=== PATIENT | male | born 1940 | race Caucasian/White ===

== ENCOUNTER → 2016-10-23 | Outpatient (CLI) | payer MEDICARE, BC ==
[2016-10-23 09:06] LABS: Basophils % (A) 0 %; CH 25.9; CHCM 30.6; Eosinophils # (A) 0.3 k/uL (0-0.7); Eosinophils % (A) 3 %; HDW 2.68; HGB 12.3 gm/dL (13.0-17.5); Hypochromasia Moderate; Luc # (Auto) 0.26; Luc % (Auto) 3; Lymphocytes # (A) 1.7 k/uL (1.0-4.8); Lymphocytes % (A) 17 %; MCH 26.8 pg (25.0-35.0); MCHC 31.5 g/dL (31.0-37.0); MCV 85.1 fL (80.0-100.0); Monocytes # (A) 0.8 k/uL (0-1.0); Monocytes % (A) 8 %; Neutrophils % (A) 69 %; RBC 4.58 m/uL (4.30-5.90); RDW 15.2 % (11.5-15.5); WBC 10.1 k/uL (3.8-10.6); WBC (Perox) 10.44
[2016-10-23 12:34] LABS: ALT 35 U/L (21-72); AST 19 U/L (17-59); Alkaline Phosphatase 68 U/L (38-126); Anion Gap 9 mmol/L; Blood Urea Nitrogen 19 mg/dL (9-20); Calcium 9.6 mg/dL (8.4-10.2); Carbon Dioxide 28 mmol/L (22-30); Chloride 104 mmol/L (98-107); Cholesterol 133 mg/dL (<200); Glucose 102 mg/dL (74-99); HDL Cholesterol 42 mg/dL (40-60); Non-African American GFR(MDRD) >60 (>60 ml/min/1.73 sqM); Potassium 4.9 mmol/L (3.5-5.1); Sodium 141 mmol/L (137-145); Total Bilirubin 0.6 mg/dL (0.2-1.3); Total Protein 7.6 g/dL (6.3-8.2)
== END | disposition home or self-care (01) ==
LOC: LABWHC1 08:30
PROVIDERS: ATTEND Internal Medicine Pulmonary Disease
DX: E78.5 Hyperlipidemia, unspecified (principal); I11.0 Hypertensive heart disease with heart failure; I50.9 Heart failure, unspecified; Z12.5 Encounter for screening for malignant neoplasm of prostate
CPT/HCPCS: 80061; 80053; 85025; 36415; G0103

== ENCOUNTER → 2017-05-27 | Outpatient (CLI) | payer MEDICARE, BC ==
[2017-05-27 08:22] LABS: Basophils % (A) 1 %; Eosinophils # (A) 0.2 k/uL (0-0.7); Eosinophils % (A) 3 %; HCT 43.1 % (39.0-53.0); HGB 13.2 gm/dL (13.0-17.5); Hypochromasia Moderate; Lymphocytes # (A) 1.7 k/uL (1.0-4.8); Lymphocytes % (A) 25 %; MCH 25.7 pg (25.0-35.0); MCHC 30.7 g/dL (31.0-37.0); MCV 83.8 fL (80.0-100.0); Mean Platelet Volume 6.8; Monocytes # (A) 0.6 k/uL (0-1.0); Monocytes % (A) 9 %; Neutrophils % (A) 59 %; Platelet Count 297 k/uL (150-450); RBC 5.14 m/uL (4.30-5.90); RDW 14.8 % (11.5-15.5); WBC 6.7 k/uL (3.8-10.6)
[2017-05-27 08:38] LABS: Albumin 4.4 g/dL (3.5-5.0); Calcium 10.3 mg/dL (8.4-10.2); Potassium 4.8 mmol/L (3.5-5.1); Total Bilirubin 0.4 mg/dL (0.2-1.3); Total Protein 7.7 g/dL (6.3-8.2)
[2017-05-27 08:52] LABS: T4, Free (Free Thyroxine) 1.17 ng/dL (0.78-2.19)
== END | disposition home or self-care (01) ==
LOC: LABWHC1 07:50
PROVIDERS: ATTEND Internal Medicine Pulmonary Disease
DX: E78.00 Pure hypercholesterolemia, unspecified (principal); I10 Essential (primary) hypertension; E03.9 Hypothyroidism, unspecified
CPT/HCPCS: 36415; 80053; 80061; 84439; 84443; 85025

== ENCOUNTER → 2017-06-10 | Outpatient (CLI) | payer MEDICARE, BC ==
--- NOTE | 2017-06-10 18:25 | MR ---
MR brain without contrast HISTORY: Vertigo with bilateral hearing loss Multiplanar multisequence imaging through the brain No comparisons There is no restricted diffusion. No hemorrhage or hydrocephalus. There is a partially empty sella. C orpus callosum, cervical medullary junction, cerebellopontine angles are unremarkable. Inflammatory c hanges present within the mastoid air cells right greater than left, the mucoperiosteal thickening pr esent within the maxillary sinuses, ethmoid air cells, frontal sinus. The orbits show symmetric appea alecia. Cortical atrophy is likely age-related. Confluent and scattered hyperintensities are present in the deep white matter, periventricular white matter, subcortical white matter on inversion recovery and T2-weighted sequences. There is a focus of juxtacortical hyperintensity in the left parietal region possibly due to some local encephalomalacia , gliosis seen on axial images 23 and 24 of the inversion recovery dataset. There are expected vascul ar flow voids. IMPRESSION: Correlate for mastoiditis, temporal bone CT may be of benefit. No evident cerebellopontin e angle mass. Sinus disease. White matter demyelination with focus of possible gliosis and encephalom alacia as described. Consider follow-up, contrast-enhanced exam.
== END | disposition home or self-care (01) ==
LOC: RADMRIMAIN 16:46
PROVIDERS: ATTEND Psychiatry & Neurology Neurology
DX: R90.89 Other abnormal findings on diagnostic imaging of central nervous system (principal); R42 Dizziness and giddiness
CPT/HCPCS: 70551

== ENCOUNTER → 2017-06-18 | Outpatient (CLI) | payer MEDICARE, BC ==
--- NOTE | 2017-06-18 14:39 | MR ---
EXAMINATION TYPE: MR brain w con DATE OF EXAM: 06/18/2017 COMPARISON: Prior MRI brain June 10, 2017. HISTORY: Prior abnormal MRI, vertigo. TECHNIQUE: Multiplanar, multisequence images of the brain and brainstem is performed with IV contrast only, util izing 7.5 mL intravenous Gadavist . FINDINGS: There is no suspicious enhancement left parietal region at area of clinical concern on prio r study. There is focal encephalomalacia with low intensity and sulcal atrophy noted. Postcontrast im ages show no suspicious enhancing intraparenchymal mass. The dural venous sinuses appear patent. IMPRESSION: No suspicious enhancing mass identified.
== END | disposition home or self-care (01) ==
LOC: RADMRIMAIN 13:50
PROVIDERS: ATTEND Psychiatry & Neurology Neurology
DX: R42 Dizziness and giddiness (principal); R90.89 Other abnormal findings on diagnostic imaging of central nervous system
CPT/HCPCS: 70552; A9581

== ENCOUNTER → 2017-09-05 | Outpatient (CLI) | payer MEDICARE, BC ==
[2017-09-05 10:48] LABS: Albumin 4.1 g/dL (3.5-5.0); Calcium 9.7 mg/dL (8.4-10.2); Potassium 4.7 mmol/L (3.5-5.1); Total Bilirubin 0.4 mg/dL (0.2-1.3)
[2017-09-05 11:05] LABS: T4, Free (Free Thyroxine) 1.16 ng/dL (0.78-2.19)
[2017-09-05 11:15] LABS: PSA Annual Screen 1.48 ng/mL (0.00-4.00)
[2017-09-05 17:08] LABS: Hemoglobin A1C 6.7 % (4.0-6.0)
== END | disposition home or self-care (01) ==
LOC: LABWHC1 08:01
PROVIDERS: ATTEND Internal Medicine Pulmonary Disease
DX: E10.21 Type 1 diabetes mellitus with diabetic nephropathy (principal); E78.5 Hyperlipidemia, unspecified; I95.9 Hypotension, unspecified
CPT/HCPCS: 84439; 80061; 80053; 84443; 83036; 36415; G0103

== ENCOUNTER 2021-08-01 07:11 | Day surgery (SDC) | payer MEDICARE, BC ==
[2021-07-31 11:11] VITALS: BMI 25.0
[~2021-08-01 07:11] MED LIST: LACTATED RINGERS 1,000 ML IV SCH; LIDOCAINE 1% (10MG/ML) FOR IV START INTRADERMA PRN; TETRACAINE 0.5% OPHTH (PF) DROPS 4 ML BTL OP PRN
[2021-08-01 07:43] VITALS: RESP 16; TEMP 97.6
[2021-08-01] MEDS: PHENYLEPHRINE 2.5% OPHTH DRP 2ML OP PRN ×3 (07:47→07:59)
[2021-08-01] MEDS: CYCLOPENTOLATE 1% OPHTH SOLN 2 ML BTL OP PRN ×3 (07:50→08:02)
[2021-08-01 08:03] LABS: Glucose,Whole Blood 134 mg/dL (70-110)
[2021-08-01] MEDS ORDERED: MIDAZOLAM 2 MG/2 ML VIAL ONE (08:58)
[2021-08-01] MEDS ORDERED: fentaNYL (PF) 50 MCG/ML 2 ML AMP ONE (08:58)
[2021-08-01] MEDS ORDERED: HYALURONATE SODIUM INTRAOCULAR 1 EACH SYRINGE (12MG/ML) INTRAOCULA ONE (09:25)
[2021-08-01] MEDS ORDERED: BALANCED SALT IRRIG SOLN COMB2 15 ML IRRIG.SOLN IRRIGATION ONE (09:26)
[2021-08-01] MEDS ORDERED: EPINEPHrine (PF) 0.3 ML in BALANCED SALT IRRIG SOLN COMB2 500 ML IRRIGATION ONE (09:27)
[2021-08-01] MEDS: TIMOLOL 0.5% OPHTH DROPS 5 ML BTL OP PRN ×2 (09:27→09:42)
[2021-08-01] MEDS: MOXIFLOXACIN HCL 0.5% DROPS 3 ML BTL OP PRN ×2 (09:27→09:42)
[2021-08-01] MEDS ORDERED: LIDOCAINE 1% (PF) 10MG/ML VIAL MISCELLANE ONE (09:27)
--- NOTE | 2021-08-01 09:44 | P.OP ---
Date of Procedure: 08/01/21 Preoperative Diagnosis: NS & CS Postoperative Diagnosis: same Procedure(s) Performed: PIOL, OD Implants: [id number] 21.50 Anesthesia: MAC Surgeon: Yobani Vega Pathology: none sent Condition: stable Disposition: same day Indications for Procedure: blurry vision Operative Findings: no complications
[2021-08-01 10:11] VITALS: BP 153/72; PULSE 75
--- NOTE | 2021-08-01 22:25 | OP ---
OPERATIVE REPORT DATE OF SERVICE: 08/01/2021. PROCEDURES: Phacoemulsification of cataract and intraocular lens implant of the right eye. PREOPERATIVE DIAGNOSES: Nuclear sclerosis, cortical sclerosis and regular astigmatism. POSTOPERATIVE DIAGNOSES: Nuclear sclerosis, cortical sclerosis and regular astigmatism. SURGEON: Dr. Yobani Vega. ANESTHESIA: Topical. ESTIMATED BLOOD LOSS: None. SPECIMEN TAKEN: None. NARRATIVE: After obtaining the appropriate consent, the patient was brought to the operating room,there he was asked to sit upright and the axes of 0 and 180 degrees were identified and marked with a gentian jeff marker. He was then placed in the proper supine position under cardiac monitoring and prepped and draped in the usual sterile manner. He was approached from his right temporal side using previously acquired corneal topography information and a Cionni axis marker previously inked in gentian jeff was oriented at the 8 degree axis. This was placed against the patient's corneal limbus. At the 11 o'clock position an MVR blade was used to create a paracentesis port. Through this opening 1% Xylocaine MPF 50:50 mix with balanced salt solution was injected into the anterior chamber. This was followed by stabilization of the anterior chamber with Amvisc. At the 9 o'clock position, a 2.5 mm keratome was used to create a self-sealing corneal flap incision. Through this opening, a cystotome was introduced to begin a continuous tear capsulorrhexis which was then completed using the Utrata forceps. Hydrodissection and hydrodelineation of the lens were accomplished with balanced salt solution. Phacoemulsification of the lens utilizing phaco chop was accomplished in 13.59 seconds at 18% power. Additional Xylocaine MPF was instilled into the anterior chamber. This was followed by removal of the remaining cortical material under irrigation and aspiration as well as careful polishing of the posterior capsule in capsule vacuum mode. Additional Amvisc was then used to stabilize the capsular bag and a Bausch and Lomb MX 60 ET 21.5 diopter by 2 diopter cylinder intra- ocular lens was introduced into the capsular bag without difficulty. The remaining viscoelastic was removed from in and around the intraocular lens as well as the anterior chamber. The lens was then oriented at the 8 degree axis as was indicated on the patient's corneal limbus. The eye was then brought to normal intraocular pressure through the paracentesis port while confirming watertight integrity of the incisions. He then received 2 drops of 0.5% timolol followed by 2 drops of 0.5% moxifloxacin was then lightly patched and shielded in the usual manner. There were no complications from the procedure. He tolerated the procedure well and was returned to outpatient recovery in good condition. LUCY / CHERRY: [id number] /
== END 2021-08-01 10:35 | disposition home or self-care (01) ==
LOC: OR 07:11
PROVIDERS: ATTEND Ophthalmology
DX: H25.11 Age-related nuclear cataract, right eye (principal); H25.011 Cortical age-related cataract, right eye; H52.221 Regular astigmatism, right eye; E11.36 Type 2 diabetes mellitus with diabetic cataract; I10 Essential (primary) hypertension; E78.5 Hyperlipidemia, unspecified; G47.33 Obstructive sleep apnea (adult) (pediatric); J45.909 Unspecified asthma, uncomplicated; K21.9 Gastro-esophageal reflux disease without esophagitis; Z87.891 Personal history of nicotine dependence; Z79.82 Long term (current) use of aspirin; Z79.84 Long term (current) use of oral hypoglycemic drugs; Z79.899 Other long term (current) drug therapy; Z88.2 Allergy status to sulfonamides; Z98.890 Other specified postprocedural states; Z97.2 Presence of dental prosthetic device (complete) (partial)
CPT/HCPCS: 66984; V2632; J2250; J0171; J3010; J2001

== ENCOUNTER 2021-08-22 08:20 | Day surgery (SDC) | payer MEDICARE, BC, OTHER ==
[2021-08-20 09:34] VITALS: BMI 24.9
[~2021-08-22 08:20] MED LIST changes: -LIDOCAINE 1% (10MG/ML) FOR IV START INTRADERMA PRN; +MOXIFLOXACIN HCL 0.5% DROPS 3 ML BTL OP PRN; +TIMOLOL 0.5% OPHTH DROPS 5 ML BTL OP PRN
[2021-08-22] MEDS: CYCLOPENTOLATE 1% OPHTH SOLN 2 ML BTL OP PRN ×3 (09:20→09:31)
[2021-08-22 09:23] VITALS: TEMP 97.4
[2021-08-22] MEDS: PHENYLEPHRINE 2.5% OPHTH DRP 2ML OP PRN ×3 (09:23→09:34)
[2021-08-22 09:38] LABS: Glucose,Whole Blood 124 mg/dL (70-110)
[2021-08-22] MEDS ORDERED: hydrALAZINE HCL 20 MG/ML 1 ML VIAL IV ONE (09:44)
[2021-08-22] MEDS ORDERED: fentaNYL (PF) 50 MCG/ML 2 ML AMP ONE (10:30)
[2021-08-22] MEDS ORDERED: MIDAZOLAM 2 MG/2 ML VIAL ONE (10:30)
[2021-08-22] MEDS ORDERED: EPINEPHrine (PF) 0.3 ML in BALANCED SALT IRRIG SOLN COMB2 500 ML IRRIGATION ONE (10:43)
[2021-08-22] MEDS ORDERED: HYALURONATE SODIUM INTRAOCULAR 1 EACH SYRINGE (12MG/ML) INTRAOCULA ONE (10:43)
[2021-08-22] MEDS ORDERED: BALANCED SALT IRRIG SOLN COMB2 15 ML IRRIG.SOLN INTRAOCULA ONE (10:44)
[2021-08-22] MEDS ORDERED: LIDOCAINE 1% (PF) 10MG/ML VIAL MISCELLANE ONE (10:44)
--- NOTE | 2021-08-22 11:04 | P.OP ---
Date of Procedure: 08/22/21 Preoperative Diagnosis: NS & CS Postoperative Diagnosis: same Procedure(s) Performed: PIOL, OS Implants: [id number] 21.50 Anesthesia: MAC Surgeon: Yobani Vega Pathology: none sent Condition: stable Disposition: same day Indications for Procedure: blurry vision Operative Findings: no complications
[2021-08-22 11:23] VITALS: BP 155/75; PULSE 82; RESP 16
--- NOTE | 2021-08-22 22:05 | OP ---
OPERATIVE REPORT DATE OF SURGERY: 08/22/2021 PROCEDURE: Phacoemulsification of cataract and intraocular lens implant of the left eye. SURGEON: Dr. Yobani Vega PREOPERATIVE DIAGNOSIS: Nuclear sclerosis and cortical sclerosis. POSTOPERATIVE DIAGNOSIS: Nuclear sclerosis and cortical sclerosis. ESTIMATED BLOOD LOSS: Zero. SPECIMEN TAKEN: None. NARRATIVE: After obtaining the appropriate consent, the patient was brought to the operating room, where the patient was placed under cardiac monitoring and prepped and draped in the usual sterile manner. At the 5 o'clock position a 15 degree super sharp blade was used to create a paracentesis followed by instillation of 1% Xylocaine MPF 50:50 mix with BSS into the anterior chamber. This was followed by Amvisc to stabilize the anterior chamber. At the 3 o'clock position a self-sealing corneal flap incision was created using 2.8 mm olesya keratome. A cystotome was used to initiate a continuous tear capsulorrhexis which was completed with the Utrata forceps. A Binkhorst cannula was used to hydrodissect the lens nucleus followed by hydrodelineation. Phacoemulsification of the lens was performed utilizing phacochop in 12.33 seconds at 12% power. The remaining cortical material was removed using the irrigation aspiration mode followed by additional 1% Xylocaine MPF into the anterior chamber followed by viscoelastic to stabilize the capsular bag. A Bausch and Lomb MX60E 21.5 diopter posterior chamber intraocular lens posterior chamber lens was placed into the capsular bag without difficulty. The remaining viscoelastic material was removed from the anterior chamber with the irrigation/aspiration. Balanced salt solution was used to normalize the intraocular pressure. The incision was checked for watertight integrity. The patient then received two drops of 0.5% timolol followed by two drops Vigamox, was lightly patched and shielded in the usual manner. There were no complications from the procedure. The patient tolerated the procedure well and was returned to recovery in good condition. MMODL / IJN: [id number] /
== END 2021-08-22 11:55 | disposition home or self-care (01) ==
LOC: OR 08:20
PROVIDERS: ATTEND Ophthalmology
DX: E11.36 Type 2 diabetes mellitus with diabetic cataract (principal); H25.12 Age-related nuclear cataract, left eye; H25.012 Cortical age-related cataract, left eye; H43.22 Crystalline deposits in vitreous body, left eye; H53.15 Visual distortions of shape and size; H53.2 Diplopia; E11.69 Type 2 diabetes mellitus with other specified complication; E78.5 Hyperlipidemia, unspecified; I10 Essential (primary) hypertension; G47.33 Obstructive sleep apnea (adult) (pediatric); E78.00 Pure hypercholesterolemia, unspecified; K21.9 Gastro-esophageal reflux disease without esophagitis; Z79.82 Long term (current) use of aspirin; Z79.84 Long term (current) use of oral hypoglycemic drugs; Z79.899 Other long term (current) drug therapy; Z87.891 Personal history of nicotine dependence; Z88.2 Allergy status to sulfonamides
CPT/HCPCS: 66984; V2632; J2250; J0360; J0171; J3010; J2001

== ENCOUNTER 2021-08-31 20:56 | Inpatient (IN) | payer MEDICARE, BC ==
[2021-08-31 22:19] LABS: Basophils % (A) 1 %; Eosinophils % (A) 0 %; HGB 14.3 gm/dL (13.0-17.5); Lymphocytes # (A) 0.5 k/uL (1.0-4.8); Lymphocytes % (A) 6 %; MCH 30.3 pg (25.0-35.0); MCHC 31.8 g/dL (31.0-37.0); MCV 95.2 fL (80.0-100.0); Mean Platelet Volume 7.4; Monocytes # (A) 0.8 k/uL (0-1.0); Monocytes % (A) 10 %; Neutrophils # (A) 6.9 k/uL (1.3-7.7); Neutrophils % (A) 82 %; Platelet Count 182 k/uL (150-450); RBC 4.73 m/uL (4.30-5.90); RDW 12.3 % (11.5-15.5); WBC 8.4 k/uL (3.8-10.6)
--- NOTE | 2021-08-31 22:24 | ED ---
Fever HPI - General Chief Complaint: Fever Stated Complaint: Fever Time Seen by Provider: 08/31/21 21:28 Source: patient, EMS Mode of arrival: EMS Limitations: no limitations - History of Present Illness Initial Comments: this patient is an 81-year-old man who arrives here to be evaluated for fevers that been going on now for 3 days. He has had some associated cough. MD Complaint: fever -: days(s) Temperature Source: oral Associated Symptoms: chills, myalgias, cough - Related Data Home Medications Medication Instructions Recorded Confirmed Aspirin EC [Ecotrin] 325 mg PO DAILY 07/31/21 09/01/21 Calcium/D3/Zinc/Copper/Chastity 1 tab PO DAILY 07/31/21 09/01/21 [Citracal-D3 Maximum Plus Caplt] Enalapril Maleate 5 mg PO DAILY 07/31/21 09/01/21 HYDROcodone/APAP 7.5-325MG [[place] 1 tab PO QID PRN 07/31/21 09/01/21 7.5-325] Lecithin, Soy [Lecithin] 1,200 mg PO DAILY 07/31/21 09/01/21 Multivit-Min/FA/Lycopen/Lutein 1 tab PO DAILY 07/31/21 09/01/21 [Centrum Silver Tablet] Niacin 500 mg PO DAILY 07/31/21 09/01/21 [place]-3/Dha/Epa/Fish Oil [Fish Oil 1 cap PO DAILY 07/31/21 09/01/21 1,000 mg Softgel] Omeprazole Magnesium [PriLOSEC OTC] 20 mg PO DAILY 07/31/21 09/01/21 Ubidecarenone [Co Q-10] 100 mg PO DAILY 07/31/21 09/01/21 Vitamin B Complex 1 cap PO BID 07/31/21 09/01/21 Zinc 50 mg PO DAILY 07/31/21 09/01/21 amLODIPine [Norvasc] 10 mg PO DAILY 07/31/21 09/01/21 flaxseed oiL [[place]-3 Flaxseed Oil] 1,000 mg PO DAILY 07/31/21 09/01/21 glyBURIDE/METFORMIN HCL 1 tab PO DAILY 07/31/21 09/01/21 [Glucovance 5-500 mg] Simvastatin [Zocor] 20 mg PO DAILY 08/20/21 09/01/21 glyBURIDE/METFORMIN HCL 0.25 - 0.5 tab PO DAILY PRN 08/20/21 09/01/21 [Glucovance 5-500 mg] Prednisolone Acetate/Pf 1 drop RIGHT EYE QID 09/01/21 09/01/21 [Prednisolone Acet 1% Eye Drop] Previous Rx's Medication Instructions Recorded Acetaminophen Tab [Tylenol] 650 mg PO Q4HR PRN tab 09/05/21 Amoxic-Pot Clav 875-125Mg 1 tab PO Q12HR 10 Days #20 tab 09/05/21 [Augmentin 875-125] Ketorolac 0.5% Ophth Soln [Acular 1 drops LEFT EYE BID ml 09/05/21 0.5%] Allergies Allergy/AdvReac Type Severity Reaction Status Date / Time Sulfa (Sulfonamide Allergy Unknown Rash/Hives, Verified 09/01/21 12:54 Antibiotics) Redness Review of Systems ROS Statement: Those systems with pertinent positive or pertinent negative responses have been documented in the HPI. ROS Other: All systems not noted in ROS Statement are negative. Constitutional: Reports: fever, chills Respiratory: Reports: cough. 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-pt r eceived 64 pints of blood (over 30 yrs ago)-only one working lung, hx of fx rt ankle-painful,ana maría cataracts and hearing aides History of Any Multi-Drug Resistant Organisms: None Reported Past Surgical History: Orthopedic Surgery Additional Past Surgical History / Comment(s): rt ankle,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,rt cataract Past Anesthesia/Blood Transfusion Reactions: No Reported Reaction Additional Past Anesthesia/Blood Transfusion Reaction / Comment(s): hx of 64 pints of blood,no reaction Past Psychological History: No Psychological Hx Reported Smoking Status: Former smoker Past Alcohol Use History: None Reported Additional Past Alcohol Use History / Comment(s): quit smoking 1970,hx of 1 ppd or more Past Drug Use History: None Reported - Past Family History Father History Unknown: Yes General Exam Limitations: no limitations General appearance: alert, in no apparent distress Head exam: Present: atraumatic, normocephalic Eye exam: Present: normal appearance. Absent: scleral icterus, conjunctival injection ENT exam: Present: normal oropharynx Neck exam: Present: normal inspection Respiratory exam: Present: rales, rhonchi. Absent: respiratory distress, wheezes, stridor Cardiovascular Exam: Present: normal rhythm, tachycardia, normal heart sounds. Absent: systolic murmur, diastolic murmur, rubs, gallop GI/Abdominal exam: Present: soft. Absent: distended, tenderness, guarding, rebound, rigid, mass Extremities exam: Present: normal inspection, normal capillary refill. Absent: pedal edema, calf tenderness Back exam: Present: normal inspection. Absent: CVA tenderness (R), CVA tenderness (L) Neurological exam: Present: alert Skin exam: Present: warm, dry, intact, normal color. Absent: rash Course Vital Signs 08/31/21 09/01/21 09/01/21 21:01 00:17 03:55 Temperature 99.8 F H 100.5 F H Pulse Rate 106 H 100 88 Pulse Rate [ Pulse Oximetery ] Respiratory 18 18 18 Rate Blood Pressure 134/98 150/87 162/84 Blood Pressure [Left Arm] O2 Sat by Pulse 95 97 Oximetry 09/01/21 09/01/21 09/01/21 05:42 05:48 06:50 Temperature 102.6 F H 102 F H Pulse Rate 122 H 100 Pulse Rate [ Pulse Oximetery ] Respiratory 29 H 16 Rate Blood Pressure 149/94 118/65 Blood Pressure [Left Arm] O2 Sat by Pulse 96 97 Oximetry 09/01/21 07:00 Temperature 98.3 F Pulse Rate Pulse Rate [ 100 Pulse Oximetery ] Respiratory 18 Rate Blood Pressure Blood Pressure 153/75 [Left Arm] O2 Sat by Pulse 99 Oximetry Medical Decision Making - Medical Decision Making This patient is an 81-year-old man here for fever without obvious source. Patient is having some mild cough during the exam and is the chest x-ray is int erpreted as showing some atelectasis but I suspect that this represents small infiltrate and patient will be started on antibiotics and admitted to assess for improvement. There are few white blood cells in the urine but there did not appear to be enough to be causing patient's systemic symptoms. Case discussed with admitting physician. - Lab Data Result diagrams: 09/05/21 04:00 09/05/21 04:00 Lab Results 08/31/21 08/31/21 08/31/21 Range/Units 21:56 21:56 21:56 WBC 8.4 (3.8-10.6) k/uL RBC 4.73 (4.30-5.90) m/uL Hgb 14.3 (13.0-17.5) gm/dL Hct 45.0 (39.0-53.0) % MCV 95.2 (80.0-100.0) fL MCH 30.3 (25.0-35.0) pg MCHC 31.8 (31.0-37.0) g/dL RDW 12.3 (11.5-15.5) % Plt Count 182 (150-450) k/uL MPV 7.4 Immature Gran % (Auto) % Absolute Nucleated RBC (0.00-0.00) X 10*3/uL Neutrophils % 82 % Lymphocytes % 6 % Monocytes % 10 % Eosinophils % 0 % Basophils % 1 % Immature Gran # (0.00-0.04) X 10*3/uL Neutrophils # 6.9 (1.3-7.7) k/uL Lymphocytes # 0.5 L (1.0-4.8) k/uL Monocytes # 0.8 (0-1.0) k/uL Eosinophils # 0.0 (0-0.7) k/uL Basophils # 0.0 (0-0.2) k/uL NRBC/100 WBC Diff (0.0-0.0) /100 WBCS ESR (0-15) mm/hr Sodium 133 L (137-145) mmol/L Potassium 4.7 (3.5-5.1) mmol/L Chloride 96 L (98-107) mmol/L Carbon Dioxide 27 (22-30) mmol/L Anion Gap 10 mmol/L BUN 26 H (9-20) mg/dL Creatinine 1.17 (0.66-1.25) mg/dL Est GFR (CKD-EPI)AfAm 66 (>60 ml/min/1.73 sqM) Est GFR (CKD-EPI)NonAf 57 (>60 ml/min/1.73 sqM) BUN/Creatinine Ratio (12.00-20.00) Ratio Glucose 280 H (74-99) mg/dL POC Glucose (mg/dL) (70-110) mg/dL POC Glu Sales Mgr ID Plasma Lactic Acid Christ 1.5 (0.7-2.0) mmol/L Calcium 9.9 (8.4-10.2) mg/dL Total Bilirubin 0.4 (0.2-1.3) mg/dL AST 22 (17-59) U/L ALT 16 (4-49) U/L Alkaline Phosphatase 77 (38-126) U/L C-Reactive Protein (<1.0) mg/dL Total Protein 7.4 (6.3-8.2) g/dL Albumin 4.4 (3.5-5.0) g/dL Globulin (1.6-3.3) g/dL Albumin/Globulin Ratio (1.60-3.17) g/dL Procalcitonin (0.02-0.09) ng/mL Urine Color Urine Appearance (Clear) Urine pH (5.0-8.0) Ur Specific [place] (1.001-1.035) Urine Protein (Negative) Urine Glucose (UA) (Negative) Urine Ketones (Negative) Urine Blood (Negative) Urine Nitrite (Negative) Urine Bilirubin (Negative) Urine Urobilinogen (<2.0) mg/dL Ur Leukocyte Esterase (Negative) Urine RBC (0-5) /hpf Urine WBC (0-5) /hpf Urine Mucus (None) /hpf Coronavirus (PCR) (Not Detectd) Influenza Type A RNA (Not Detectd) Influenza Type B (PCR) (Not Detectd) Legionella Source Urine Legionella Ag (Negative) 08/31/21 08/31/21 08/31/21 Range/Units 23:01 23:01 23:40 WBC (3.8-10.6) k/uL RBC (4.30-5.90) m/uL Hgb (13.0-17.5) gm/dL Hct (39.0-53.0) % MCV (80.0-100.0) fL MCH (25.0-35.0) pg MCHC (31.0-37.0) g/dL RDW (11.5-15.5) % Plt Count (150-450) k/uL MPV Immature Gran % (Auto) % Absolute Nucleated RBC (0.00-0.00) X 10*3/uL Neutrophils % % Lymphocytes % % Monocytes % % Eosinophils % % Basophils % % Immature Gran # (0.00-0.04) X 10*3/uL Neutrophils # (1.3-7.7) k/uL Lymphocytes # (1.0-4.8) k/uL Monocytes # (0-1.0) k/uL Eosinophils # (0-0.7) k/uL Basophils # (0-0.2) k/uL NRBC/100 WBC Diff (0.0-0.0) /100 WBCS ESR (0-15) mm/hr Sodium (137-145) mmol/L Potassium (3.5-5.1) mmol/L Chloride (98-107) mmol/L Carbon Dioxide (22-30) mmol/L Anion Gap mmol/L BUN (9-20) mg/dL Creatinine (0.66-1.25) mg/dL Est GFR (CKD-EPI)AfAm (>60 ml/min/1.73 sqM) Est GFR (CKD-EPI)NonAf (>60 ml/min/1.73 sqM) BUN/Creatinine Ratio (12.00-20.00) Ratio Glucose (74-99) mg/dL POC Glucose (mg/dL) (70-110) mg/dL POC Glu Sales Mgr ID Plasma Lactic Acid Christ (0.7-2.0) mmol/L Calcium (8.4-10.2) mg/dL Total Bilirubin (0.2-1.3) mg/dL AST (17-59) U/L ALT (4-49) U/L Alkaline Phosphatase (38-126) U/L C-Reactive Protein (<1.0) mg/dL Total Protein (6.3-8.2) g/dL Albumin (3.5-5.0) g/dL Globulin (1.6-3.3) g/dL Albumin/Globulin Ratio (1.60-3.17) g/dL Procalcitonin (0.02-0.09) ng/mL Urine Color Yellow Urine Appearance Clear (Clear) Urine pH 5.5 (5.0-8.0) Ur Specific [place] 1.022 (1.001-1.035) Urine Protein Trace H (Negative) Urine Glucose (UA) 3+ H (Negative) Urine Ketones Negative (Negative) Urine Blood Negative (Negative) Urine Nitrite Negative (Negative) Urine Bilirubin Negative (Negative) Urine Urobilinogen <2.0 (<2.0) mg/dL Ur Leukocyte Esterase Trace H (Negative) Urine RBC 2 (0-5) /hpf Urine WBC 8 H (0-5) /hpf Urine Mucus Rare H (None) /hpf Coronavirus (PCR) Not Detected (Not Detectd) Influenza Type A RNA Not Detected (Not Detectd) Influenza Type B (PCR) Not Detected (Not Detectd) Legionella Source Urine Legionella Ag (Negative) 09/01/21 09/01/21 09/01/21 Range/Units 03:14 05:31 12:40 WBC (3.8-10.6) k/uL RBC (4.30-5.90) m/uL Hgb (13.0-17.5) gm/dL Hct (39.0-53.0) % MCV (80.0-100.0) fL MCH (25.0-35.0) pg MCHC (31.0-37.0) g/dL RDW (11.5-15.5) % Plt Count (150-450) k/uL MPV Immature Gran % (Auto) % Absolute Nucleated RBC (0.00-0.00) X 10*3/uL Neutrophils % % Lymphocytes % % Monocytes % % Eosinophils % % Basophils % % Immature Gran # (0.00-0.04) X 10*3/uL Neutrophils # (1.3-7.7) k/uL Lymphocytes # (1.0-4.8) k/uL Monocytes # (0-1.0) k/uL Eosinophils # (0-0.7) k/uL Basophils # (0-0.2) k/uL NRBC/100 WBC Diff (0.0-0.0) /100 WBCS ESR (0-15) mm/hr Sodium (137-145) mmol/L Potassium (3.5-5.1) mmol/L Chloride (98-107) mmol/L Carbon Dioxide (22-30) mmol/L Anion Gap mmol/L BUN (9-20) mg/dL Creatinine (0.66-1.25) mg/dL Est GFR (CKD-EPI)AfAm (>60 ml/min/1.73 sqM) Est GFR (CKD-EPI)NonAf (>60 ml/min/1.73 sqM) BUN/Creatinine Ratio (12.00-20.00) Ratio Glucose (74-99) mg/dL POC Glucose (mg/dL) 157 H 190 H 259 H (70-110) mg/dL POC Glu Sales Mgr ID [place], Juventino Suazo Jasmine Plasma Lactic Acid Christ (0.7-2.0) mmol/L Calcium (8.4-10.2) mg/dL Total Bilirubin (0.2-1.3) mg/dL AST (17-59) U/L ALT (4-49) U/L Alkaline Phosphatase (38-126) U/L C-Reactive Protein (<1.0) mg/dL Total Protein (6.3-8.2) g/dL Albumin (3.5-5.0) g/dL Globulin (1.6-3.3) g/dL Albumin/Globulin Ratio (1.60-3.17) g/dL Procalcitonin (0.02-0.09) ng/mL Urine Color Urine Appearance (Clear) Urine pH (5.0-8.0) Ur Specific [place] (1.001-1.035) Urine Protein (Negative) Urine Glucose (UA) (Negative) Urine Ketones (Negative) Urine Blood (Negative) Urine Nitrite (Negative) Urine Bilirubin (Negative) Urine Urobilinogen (<2.0) mg/dL Ur Leukocyte Esterase (Negative) Urine RBC (0-5) /hpf Urine WBC (0-5) /hpf Urine Mucus (None) /hpf Coronavirus (PCR) (Not Detectd) Influenza Type A RNA (Not Detectd) Influenza Type B (PCR) (Not Detectd) Legionella Source Urine Legionella Ag (Negative) 09/01/21 09/01/21 09/01/21 Range/Units 12:52 12:52 12:52 WBC (3.8-10.6) k/uL RBC (4.30-5.90) m/uL Hgb (13.0-17.5) gm/dL Hct (39.0-53.0) % MCV (80.0-100.0) fL MCH (25.0-35.0) pg MCHC (31.0-37.0) g/dL RDW (11.5-15.5) % Plt Count (150-450) k/uL MPV Immature Gran % (Auto) % Absolute Nucleated RBC (0.00-0.00) X 10*3/uL Neutrophils % % Lymphocytes % % Monocytes % % Eosinophils % % Basophils % % Immature Gran # (0.00-0.04) X 10*3/uL Neutrophils # (1.3-7.7) k/uL Lymphocytes # (1.0-4.8) k/uL Monocytes # (0-1.0) k/uL Eosinophils # (0-0.7) k/uL Basophils # (0-0.2) k/uL NRBC/100 WBC Diff (0.0-0.0) /100 WBCS ESR 30 H (0-15) mm/hr Sodium (137-145) mmol/L Potassium (3.5-5.1) mmol/L Chloride (98-107) mmol/L Carbon Dioxide (22-30) mmol/L Anion Gap mmol/L BUN (9-20) mg/dL Creatinine (0.66-1.25) mg/dL Est GFR (CKD-EPI)AfAm (>60 ml/min/1.73 sqM) Est GFR (CKD-EPI)NonAf (>60 ml/min/1.73 sqM) BUN/Creatinine Ratio (12.00-20.00) Ratio Glucose (74-99) mg/dL POC Glucose (mg/dL) (70-110) mg/dL POC Glu Sales Mgr ID Plasma Lactic Acid Christ (0.7-2.0) mmol/L Calcium (8.4-10.2) mg/dL Total Bilirubin (0.2-1.3) mg/dL AST (17-59) U/L ALT (4-49) U/L Alkaline Phosphatase (38-126) U/L C-Reactive Protein 8.3 H (<1.0) mg/dL Total Protein (6.3-8.2) g/dL Albumin (3.5-5.0) g/dL Globulin (1.6-3.3) g/dL Albumin/Globulin Ratio (1.60-3.17) g/dL Procalcitonin 1.09 H (0.02-0.09) ng/mL Urine Color Urine Appearance (Clear) Urine pH (5.0-8.0) Ur Specific [place] (1.001-1.035) Urine Protein (Negative) Urine Glucose (UA) (Negative) Urine Ketones (Negative) Urine Blood (Negative) Urine Nitrite (Negative) Urine Bilirubin (Negative) Urine Urobilinogen (<2.0) mg/dL Ur Leukocyte Esterase (Negative) Urine RBC (0-5) /hpf Urine WBC (0-5) /hpf Urine Mucus (None) /hpf Coronavirus (PCR) (Not Detectd) Influenza Type A RNA (Not Detectd) Influenza Type B (PCR) (Not Detectd) Legionella Source Urine Legionella Ag (Negative) 09/01/21 09/01/21 09/01/21 Range/Units 14:28 17:17 21:36 WBC (3.8-10.6) k/uL RBC (4.30-5.90) m/uL Hgb (13.0-17.5) gm/dL Hct (39.0-53.0) % MCV (80.0-100.0) fL MCH (25.0-35.0) pg MCHC (31.0-37.0) g/dL RDW (11.5-15.5) % Plt Count (150-450) k/uL MPV Immature Gran % (Auto) % Absolute Nucleated RBC (0.00-0.00) X 10*3/uL Neutrophils % % Lymphocytes % % Monocytes % % Eosinophils % % Basophils % % Immature Gran # (0.00-0.04) X 10*3/uL Neutrophils # (1.3-7.7) k/uL Lymphocytes # (1.0-4.8) k/uL Monocytes # (0-1.0) k/uL Eosinophils # (0-0.7) k/uL Basophils # (0-0.2) k/uL NRBC/100 WBC Diff (0.0-0.0) /100 WBCS ESR (0-15) mm/hr Sodium (137-145) mmol/L Potassium (3.5-5.1) mmol/L Chloride (98-107) mmol/L Carbon Dioxide (22-30) mmol/L Anion Gap mmol/L BUN (9-20) mg/dL Creatinine (0.66-1.25) mg/dL Est GFR (CKD-EPI)AfAm (>60 ml/min/1.73 sqM) Est GFR (CKD-EPI)NonAf (>60 ml/min/1.73 sqM) BUN/Creatinine Ratio (12.00-20.00) Ratio Glucose (74-99) mg/dL POC Glucose (mg/dL) 173 H 151 H (70-110) mg/dL POC Glu Sales Mgr ID JaiissacRadha Addyline Plasma Lactic Acid Christ (0.7-2.0) mmol/L Calcium (8.4-10.2) mg/dL Total Bilirubin (0.2-1.3) mg/dL AST (17-59) U/L ALT (4-49) U/L Alkaline Phosphatase (38-126) U/L C-Reactive Protein (<1.0) mg/dL Total Protein (6.3-8.2) g/dL Albumin (3.5-5.0) g/dL Globulin (1.6-3.3) g/dL Albumin/Globulin Ratio (1.60-3.17) g/dL Procalcitonin (0.02-0.09) ng/mL Urine Color Urine Appearance (Clear) Urine pH (5.0-8.0) Ur Specific [place] (1.001-1.035) Urine Protein (Negative) Urine Glucose (UA) (Negative) Urine Ketones (Negative) Urine Blood (Negative) Urine Nitrite (Negative) Urine Bilirubin (Negative) Urine Urobilinogen (<2.0) mg/dL Ur Leukocyte Esterase (Negative) Urine RBC (0-5) /hpf Urine WBC (0-5) /hpf Urine Mucus (None) /hpf Coronavirus (PCR) (Not Detectd) Influenza Type A RNA (Not Detectd) Influenza Type B (PCR) (Not Detectd) Legionella Source Urine Urine Legionella Ag Negative (Negative) 09/02/21 09/02/21 09/02/21 Range/Units 04:27 04:27 07:09 WBC 8.55 (3.8-10.6) k/uL RBC 3.90 L (4.30-5.90) m/uL Hgb 11.8 L (13.0-17.5) gm/dL Hct 37.2 L (39.0-53.0) % MCV 95.4 (80.0-100.0) fL MCH 30.3 (25.0-35.0) pg MCHC 31.7 L (31.0-37.0) g/dL RDW 12.5 (11.5-15.5) % Plt Count 144 (150-450) k/uL MPV 10.0 Immature Gran % (Auto) 0.4 % Absolute Nucleated RBC 0 (0.00-0.00) X 10*3/uL Neutrophils % 75.2 % Lymphocytes % 8.3 % Monocytes % 14.6 % Eosinophils % 1.1 % Basophils % 0.4 % Immature Gran # 0.03 (0.00-0.04) X 10*3/uL Neutrophils # 6.44 (1.3-7.7) k/uL Lymphocytes # 0.71 L (1.0-4.8) k/uL Monocytes # 1.25 H (0-1.0) k/uL Eosinophils # 0.09 (0-0.7) k/uL Basophils # 0.03 (0-0.2) k/uL NRBC/100 WBC Diff 0 (0.0-0.0) /100 WBCS ESR (0-15) mm/hr Sodium 139 (137-145) mmol/L Potassium 4.5 (3.5-5.1) mmol/L Chloride 102 (98-107) mmol/L Carbon Dioxide 25.5 (22-30) mmol/L Anion Gap 11.50 mmol/L BUN 29.5 H (9-20) mg/dL Creatinine 1.4 (0.66-1.25) mg/dL Est GFR (CKD-EPI)AfAm 53.5 L (>60 ml/min/1.73 sqM) Est GFR (CKD-EPI)NonAf 46.1 L (>60 ml/min/1.73 sqM) BUN/Creatinine Ratio 21.07 H (12.00-20.00) Ratio Glucose 91 (74-99) mg/dL POC Glucose (mg/dL) 105 (70-110) mg/dL POC Glu Sales Mgr ID Radha Guerrero Plasma Lactic Acid Christ (0.7-2.0) mmol/L Calcium 8.4 L (8.4-10.2) mg/dL Total Bilirubin 0.30 (0.2-1.3) mg/dL AST 32 (17-59) U/L ALT 27 (4-49) U/L Alkaline Phosphatase 51 (38-126) U/L C-Reactive Protein (<1.0) mg/dL Total Protein 5.5 L (6.3-8.2) g/dL Albumin 3.3 L (3.5-5.0) g/dL Globulin 2.2 (1.6-3.3) g/dL Albumin/Globulin Ratio 1.50 L (1.60-3.17) g/dL Procalcitonin (0.02-0.09) ng/mL Urine Color Urine Appearance (Clear) Urine pH (5.0-8.0) Ur Specific [place] (1.001-1.035) Urine Protein (Negative) Urine Glucose (UA) (Negative) Urine Ketones (Negative) Urine Blood (Negative) Urine Nitrite (Negative) Urine Bilirubin (Negative) Urine Urobilinogen (<2.0) mg/dL Ur Leukocyte Esterase (Negative) Urine RBC (0-5) /hpf Urine WBC (0-5) /hpf Urine Mucus (None) /hpf Coronavirus (PCR) (Not Detectd) Influenza Type A RNA (Not Detectd) Influenza Type B (PCR) (Not Detectd) Legionella Source Urine Legionella Ag (Negative) 09/02/21 09/02/21 09/02/21 Range/Units 12:04 15:10 16:47 WBC (3.8-10.6) k/uL RBC (4.30-5.90) m/uL Hgb (13.0-17.5) gm/dL Hct (39.0-53.0) % MCV (80.0-100.0) fL MCH (25.0-35.0) pg MCHC (31.0-37.0) g/dL RDW (11.5-15.5) % Plt Count (150-450) k/uL MPV Immature Gran % (Auto) % Absolute Nucleated RBC (0.00-0.00) X 10*3/uL Neutrophils % % Lymphocytes % % Monocytes % % Eosinophils % % Basophils % % Immature Gran # (0.00-0.04) X 10*3/uL Neutrophils # (1.3-7.7) k/uL Lymphocytes # (1.0-4.8) k/uL Monocytes # (0-1.0) k/uL Eosinophils # (0-0.7) k/uL Basophils # (0-0.2) k/uL NRBC/100 WBC Diff (0.0-0.0) /100 WBCS ESR (0-15) mm/hr Sodium (137-145) mmol/L Potassium (3.5-5.1) mmol/L Chloride (98-107) mmol/L Carbon Dioxide (22-30) mmol/L Anion Gap mmol/L BUN (9-20) mg/dL Creatinine (0.66-1.25) mg/dL Est GFR (CKD-EPI)AfAm (>60 ml/min/1.73 sqM) Est GFR (CKD-EPI)NonAf (>60 ml/min/1.73 sqM) BUN/Creatinine Ratio (12.00-20.00) Ratio Glucose (74-99) mg/dL POC Glucose (mg/dL) 113 H 87 116 H (70-110) mg/dL POC Glu Sales Mgr Radha Leung Rhonda Vantiem, [place] Plasma Lactic Acid Christ (0.7-2.0) mmol/L Calcium (8.4-10.2) mg/dL Total Bilirubin (0.2-1.3) mg/dL AST (17-59) U/L ALT (4-49) U/L Alkaline Phosphatase (38-126) U/L C-Reactive Protein (<1.0) mg/dL Total Protein (6.3-8.2) g/dL Albumin (3.5-5.0) g/dL Globulin (1.6-3.3) g/dL Albumin/Globulin Ratio (1.60-3.17) g/dL Procalcitonin (0.02-0.09) ng/mL Urine Color Urine Appearance (Clear) Urine pH (5.0-8.0) Ur Specific [place] (1.001-1.035) Urine Protein (Negative) Urine Glucose (UA) (Negative) Urine Ketones (Negative) Urine Blood (Negative) Urine Nitrite (Negative) Urine Bilirubin (Negative) Urine Urobilinogen (<2.0) mg/dL Ur Leukocyte Esterase (Negative) Urine RBC (0-5) /hpf Urine WBC (0-5) /hpf Urine Mucus (None) /hpf Coronavirus (PCR) (Not Detectd) Influenza Type A RNA (Not Detectd) Influenza Type B (PCR) (Not Detectd) Legionella Source Urine Legionella Ag (Negative) 09/02/21 09/03/21 09/03/21 Range/Units 21:38 03:35 03:35 WBC 6.33 (3.8-10.6) k/uL RBC 4.00 L (4.30-5.90) m/uL Hgb 12.3 L (13.0-17.5) gm/dL Hct 38.5 L (39.0-53.0) % MCV 96.3 (80.0-100.0) fL MCH 30.8 (25.0-35.0) pg MCHC 31.9 L (31.0-37.0) g/dL RDW 12.3 (11.5-15.5) % Plt Count 153 (150-450) k/uL MPV 10.4 Immature Gran % (Auto) 0.6 % Absolute Nucleated RBC 0 (0.00-0.00) X 10*3/uL Neutrophils % 81.3 % Lymphocytes % 11.8 % Monocytes % 6.3 % Eosinophils % 0 % Basophils % 0 % Immature Gran # 0.04 (0.00-0.04) X 10*3/uL Neutrophils # 5.14 (1.3-7.7) k/uL Lymphocytes # 0.75 L (1.0-4.8) k/uL Monocytes # 0.40 (0-1.0) k/uL Eosinophils # 0 L (0-0.7) k/uL Basophils # 0 (0-0.2) k/uL NRBC/100 WBC Diff 0 (0.0-0.0) /100 WBCS ESR (0-15) mm/hr Sodium 141 (137-145) mmol/L Potassium 5.5 (3.5-5.1) mmol/L Chloride 107 (98-107) mmol/L Carbon Dioxide 25.2 (22-30) mmol/L Anion Gap 8.80 L mmol/L BUN 29.8 H (9-20) mg/dL Creatinine 1.1 (0.66-1.25) mg/dL Est GFR (CKD-EPI)AfAm 71.6 (>60 ml/min/1.73 sqM) Est GFR (CKD-EPI)NonAf 61.8 (>60 ml/min/1.73 sqM) BUN/Creatinine Ratio 27.09 H (12.00-20.00) Ratio Glucose 168 H (74-99) mg/dL POC Glucose (mg/dL) 141 H (70-110) mg/dL POC Glu Sales Mgr ID Siobhan Cedeno Plasma Lactic Acid Christ (0.7-2.0) mmol/L Calcium 8.6 L (8.4-10.2) mg/dL Total Bilirubin <0.15 L (0.2-1.3) mg/dL AST 25 (17-59) U/L ALT 27 (4-49) U/L Alkaline Phosphatase 52 (38-126) U/L C-Reactive Protein (<1.0) mg/dL Total Protein 5.8 L (6.3-8.2) g/dL Albumin 3.4 L (3.5-5.0) g/dL Globulin 2.4 (1.6-3.3) g/dL Albumin/Globulin Ratio 1.42 L (1.60-3.17) g/dL Procalcitonin (0.02-0.09) ng/mL Urine Color Urine Appearance (Clear) Urine pH (5.0-8.0) Ur Specific [place] (1.001-1.035) Urine Protein (Negative) Urine Glucose (UA) (Negative) Urine Ketones (Negative) Urine Blood (Negative) Urine Nitrite (Negative) Urine Bilirubin (Negative) Urine Urobilinogen (<2.0) mg/dL Ur Leukocyte Esterase (Negative) Urine RBC (0-5) /hpf Urine WBC (0-5) /hpf Urine Mucus (None) /hpf Coronavirus (PCR) (Not Detectd) Influenza Type A RNA (Not Detectd) Influenza Type B (PCR) (Not Detectd) Legionella Source Urine Legionella Ag (Negative) 09/03/21 Range/Units 07:24 WBC (3.8-10.6) k/uL RBC (4.30-5.90) m/uL Hgb (13.0-17.5) gm/dL Hct (39.0-53.0) % MCV (80.0-100.0) fL MCH (25.0-35.0) pg MCHC (31.0-37.0) g/dL RDW (11.5-15.5) % Plt Count (150-450) k/uL MPV Immature Gran % (Auto) % Absolute Nucleated RBC (0.00-0.00) X 10*3/uL Neutrophils % % Lymphocytes % % Monocytes % % Eosinophils % % Basophils % % Immature Gran # (0.00-0.04) X 10*3/uL Neutrophils # (1.3-7.7) k/uL Lymphocytes # (1.0-4.8) k/uL Monocytes # (0-1.0) k/uL Eosinophils # (0-0.7) k/uL Basophils # (0-0.2) k/uL NRBC/100 WBC Diff (0.0-0.0) /100 WBCS ESR (0-15) mm/hr Sodium (137-145) mmol/L Potassium (3.5-5.1) mmol/L Chloride (98-107) mmol/L Carbon Dioxide (22-30) mmol/L Anion Gap mmol/L BUN (9-20) mg/dL Creatinine (0.66-1.25) mg/dL Est GFR (CKD-EPI)AfAm (>60 ml/min/1.73 sqM) Est GFR (CKD-EPI)NonAf (>60 ml/min/1.73 sqM) BUN/Creatinine Ratio (12.00-20.00) Ratio Glucose (74-99) mg/dL POC Glucose (mg/dL) 179 H (70-110) mg/dL POC Glu Sales Mgr ID Rhody, Adrianne Plasma Lactic Acid Christ (0.7-2.0) mmol/L Calcium (8.4-10.2) mg/dL Total Bilirubin (0.2-1.3) mg/dL AST (17-59) U/L ALT (4-49) U/L Alkaline Phosphatase (38-126) U/L C-Reactive Protein (<1.0) mg/dL Total Protein (6.3-8.2) g/dL Albumin (3.5-5.0) g/dL Globulin (1.6-3.3) g/dL Albumin/Globulin Ratio (1.60-3.17) g/dL Procalcitonin (0.02-0.09) ng/mL Urine Color Urine Appearance (Clear) Urine pH (5.0-8.0) Ur Specific [place] (1.001-1.035) Urine Protein (Negative) Urine Glucose (UA) (Negative) Urine Ketones (Negative) Urine Blood (Negative) Urine Nitrite (Negative) Urine Bilirubin (Negative) Urine Urobilinogen (<2.0) mg/dL Ur Leukocyte Esterase (Negative) Urine RBC (0-5) /hpf Urine WBC (0-5) /hpf Urine Mucus (None) /hpf Coronavirus (PCR) (Not Detectd) Influenza Type A RNA (Not Detectd) Influenza Type B (PCR) (Not Detectd) Legionella Source Urine Legionella Ag (Negative) Disposition Clinical Impression: Fever, Pneumonia Disposition: ADMITTED IP TO THIS HOSP Condition: Good Is patient prescribed a controlled substance at d/c from ED?: No
--- NOTE | 2021-08-31 22:31 | XR ---
EXAMINATION TYPE: XR chest 1V portable DATE OF EXAM: 08/31/2021 COMPARISON: NONE HISTORY: Fever TECHNIQUE: Single view FINDINGS: Heart is enlarged. No heart failure. There is elevation of the left diaphragm with atelecta sis left lung base. There is coarsening of the lung markings. IMPRESSION: Cardiomegaly. Left basilar atelectasis. No obvious heart failure.
[2021-08-31 22:53] LABS: Albumin 4.4 g/dL (3.5-5.0); Calcium 9.9 mg/dL (8.4-10.2); Potassium 4.7 mmol/L (3.5-5.1); Total Bilirubin 0.4 mg/dL (0.2-1.3); Total Protein 7.4 g/dL (6.3-8.2)
[2021-08-31 23:52] LABS: Appearance,Urine Clear (Clear); Bilirubin,Urine Negative (Negative); Blood,Urine Negative (Negative); Color,Urine Yellow; Glucose,Urine (UA) 3+ (Negative); Ketones,Urine Negative (Negative); Leukocyte Esterase,Urine Trace (Negative); Mucus,Urine Rare /hpf; Nitrite,Urine Negative (Negative); PH, Urine 5.5 (5.0-8.0); Protein,Urine Trace (Negative); RBC,Urine 2 /hpf (0-5); Specific Gravity,Urine 1.022 (1.001-1.035); Urobilinogen,Urine <2.0 mg/dL (<2.0); WBC,Urine 8 /hpf (0-5)
[2021-09-01] MEDS ORDERED: INSULIN REGULAR 100 UNIT/ML VIAL (IV) SQ STA (01:33)
[2021-09-01] MEDS ORDERED: PNEUMONIA PROTOCOL UTILIZED 1 EACH MISC PO PRN (02:27)
[2021-09-01] MEDS: SODIUM CHLORIDE 0.9% 1,000 ML IV SCH ×3 (03:13→17:03)
[2021-09-01 03:16] LABS: Glucose,Whole Blood 157 mg/dL (70-110)
[2021-09-01] MEDS ORDERED: ONDANSETRON 4 MG/2 ML VIAL IVP STA (05:27)
[2021-09-01] MEDS ORDERED: ACETAMINOPHEN SUPPOSITORY 650 MG SUPP RECTAL STA (05:32)
[2021-09-01 05:34] LABS: Glucose,Whole Blood 190 mg/dL (70-110)
[2021-09-01] MEDS: lisinopriL 5 MG TAB PO SCH (10:39)
[2021-09-01] MEDS: ASPIRIN 325 MG TAB PO SCH (10:39)
[2021-09-01] MEDS: PANTOPRAZOLE 40 MG TABLET PO SCH (10:40)
[2021-09-01] MEDS: metFORMIN 500 MG TAB PO SCH (10:40)
[2021-09-01] MEDS: ATORVASTATIN 10 MG TAB PO SCH (10:40)
[2021-09-01] MEDS: amLODIPine 10 MG TAB PO SCH (10:40)
[2021-09-01 12:42] LABS: Glucose,Whole Blood 259 mg/dL (70-110)
[2021-09-01] MEDS: IOPAMIDOL CONTRAST (ORAL USE) VIAL PO PRN ×2 (12:47→13:44)
[2021-09-01] MEDS: NIACIN TR 500 MG CAPLET PO SCH (12:48)
[2021-09-01] MEDS: glipiZIDE 5 MG TAB PO SCH (12:48)
--- NOTE | 2021-09-01 13:59 | P.HPIM ---
History of Present Illness H&P Date: 09/01/21 This is an 81-year-old gentleman, known history of hypertension, aortic valve surgery, recent cataract, in July 2021, bilaterally done, who apparently was seen in emergency room, secondary to fever. Upon questioning the , fevers been going on off and on for the past 2 months, he sees Dr. Aleja Chan, has minimal cough, there is no neck pain, patient has headache, patient denies any back pain, abdominal pain, that is localized to a particular organ, per the , the patient only has off one lung that is working, as a result of previous injury, left lung in the past. In the emergency room rule out urinalysis essentially negative, WBCs 8, chest x- ray shows basilar atelectasis, left side, with elevation of left hemidiaphragm, coarsening of lung markings of obesity count of 8.4, creatinine of 1.17, liver function test is normal lactic acid is normal, and pro-calcitonin level is normal, liver function test is normal. Coronavirus PCR negative, influenza A and B- ASSESSMENT AND PLAN 1. Persistent fever off and on, for the past 2 months, without any significant focal or localizing signs, chest x-ray only shows left basilar atelectasis, worsening perihilar infiltrate, however patient has history of removal of the left lung, from a previous accidental injury, patient has been seen by Dr. Aleja Chan, we'll going to consult Dr. Christine, and Dr. Conley. Blood cultures, Legionella, and metabolic for other sources of fever of unknown origin, CAT scan abdomen and pelvis, might need to obtain out to immune markers. Coronary virus, influenza A and influenza B is negative obtain echocardiogram, evaluate for endocarditis, history of aortic valve surgery. Skin exam is nonlocalizing, there is some local excoriation left knee, but not infected, not the source of the fever 2. Hypertension amlodipine 10 mg daily a syncopal 5 mg a.m. 3. Diabetes mellitus type 2 Glucotrol 5 mg daily restart metformin, GFR is okay 57 4. History of pyelonephritis, no current symptoms urinalysis only shows WBC of 8 5. BPH without lower urinary tract symptomatology Previous tobacco, with 60 pack years Hyperlipidemia, Lipitor 10 daily COPD without exacerbation we'll provide when necessary albuterol IP Pulmicort GI prophylaxis DVT prophylaxis Review of Systems Constitutional: Reports as per HPI, Reports chills, Reports lethargy, Reports malaise, Reports poor appetite, Reports weakness Ears, nose, mouth and throat: Reports as per HPI, Denies epistaxis, Denies headache, Denies nasal congestion, Denies neck lump, Denies sinus pressure, Denies sore throat Cardiovascular: Reports as per HPI, Denies decreased exercise tolerance, Denies dyspnea on exertion, Denies leg edema, Denies palpitations, Denies shortness of breath Respiratory: Reports as per HPI, Reports cough, Reports snoring, Denies congestion, Denies cough with sputum, Denies dyspnea, Denies hemoptysis, Denies home oxygen, Denies respiratory infections, Denies wheezing Gastrointestinal: Reports as per HPI, Reports abdominal pain, Denies belching, Denies bloating, Denies BRBPR, Denies change in bowel habits, Denies coffee ground emesis, Denies constipation, Denies diarrhea, Denies dyspepsia, Denies early satiety, Denies excessive gas, Denies heartburn, Denies hematemesis, Denies hematochezia, Denies indigestion, Denies jaundice, Denies lactose intoler ance, Denies loss of appetite, Denies melena, Denies nausea, Denies vomiting Genitourinary: Reports as per HPI Musculoskeletal: Reports as per HPI Integumentary: Reports as per HPI Neurological: Reports as per HPI, Reports gait dysfunction, Reports visual changes, Denies double vision, Denies migraines, Denies motor disturbance, Denies numbness Psychiatric: Reports as per HPI, Reports sleep disturbances Endocrine: Reports as per HPI, Reports excessive thirst, Reports fatigue, Reports polydipsia, Reports polyuria Hematologic/Lymphatic: Reports as per HPI Allergic/Immunologic: Reports as per HPI Past Medical History Past Medical History: Asthma, Diabetes Mellitus, GERD/Reflux, Hyperlipidemia, Hypertension, Osteoarthritis (OA), Sleep Apnea/CPAP/BIPAP Additional Past Medical History / Comment(s): heart murmur, hx of bleeding st omach ulcer and during 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-pt received 64 pints of blood (over 30 yrs ago)-only one working lung, hx of fx rt ankle- painful,ana maría cataracts and hearing aides History of Any Multi-Drug Resistant Organisms: None Reported Past Surgical History: Orthopedic Surgery Additional Past Surgical History / Comment(s): rt ankle,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,rt cataract Past Anesthesia/Blood Transfusion Reactions: No Reported Reaction Additional Past Anesthesia/Blood Transfusion Reaction / Comment(s): hx of 64 pints of blood,no reaction Past Psychological History: No Psychological Hx Reported Smoking Status: Former smoker Past Alcohol Use History: None Reported Additional Past Alcohol Use History / Comment(s): quit smoking 1969,hx of 1 ppd or more Past Drug Use History: None Reported - Past Family History Father History Unknown: Yes (Mother Alzheimer's dementia, father with old age at age 74, 2 sisters healthy, 4 children healthy) Medications and Allergies Home Medications Medication Instructions Recorded Confirmed Type Aspirin EC [Ecotrin] 325 mg PO DAILY 07/31/21 09/01/21 History Calcium/D3/Zinc/Copper/Chastity 1 tab PO DAILY 07/31/21 09/01/21 History [Citracal-D3 Maximum Plus Caplt] Enalapril Maleate 5 mg PO DAILY 07/31/21 09/01/21 History HYDROcodone/APAP 7.5-325MG [[place] 1 tab PO QID PRN 07/31/21 09/01/21 History 7.5-325] Lecithin, Soy [Lecithin] 1,200 mg PO DAILY 07/31/21 09/01/21 History Multivit-Min/FA/Lycopen/Lutein 1 tab PO DAILY 07/31/21 09/01/21 History [Centrum Silver Tablet] Niacin 500 mg PO DAILY 07/31/21 09/01/21 History [place]-3/Dha/Epa/Fish Oil [Fish Oil 1 cap PO DAILY 07/31/21 09/01/21 History 1,000 mg Softgel] Omeprazole Magnesium [PriLOSEC OTC] 20 mg PO DAILY 07/31/21 09/01/21 History Ubidecarenone [Co Q-10] 100 mg PO DAILY 07/31/21 09/01/21 History Vitamin B Complex 1 cap PO BID 07/31/21 09/01/21 History Zinc 50 mg PO DAILY 07/31/21 09/01/21 History amLODIPine [Norvasc] 10 mg PO DAILY 07/31/21 09/01/21 History flaxseed oiL [[place]-3 Flaxseed Oil] 1,000 mg PO DAILY 07/31/21 09/01/21 History glyBURIDE/METFORMIN HCL 1 tab PO DAILY 07/31/21 09/01/21 History [Glucovance 5-500 mg] Simvastatin [Zocor] 20 mg PO DAILY 08/20/21 09/01/21 History glyBURIDE/METFORMIN HCL 0.25 - 0.5 tab PO DAILY PRN 08/20/21 09/01/21 History [Glucovance 5-500 mg] Prednisolone Acetate/Pf 1 drop RIGHT EYE QID 09/01/21 09/01/21 History [Prednisolone Acet 1% Eye Drop] Allergies Allergy/AdvReac Type Severity Reaction Status Date / Time Sulfa (Sulfonamide Allergy Unknown Rash/Hives, Verified 09/01/21 12:54 Antibiotics) Redness Physical Exam Vitals: Vital Signs Temp Pulse Pulse Resp BP BP Pulse Ox 09/01/21 07:00 98.3 F 100 18 153/75 99 09/01/21 06:50 102 F H 100 16 118/65 97 09/01/21 05:48 122 H 29 H 149/94 96 09/01/21 05:42 102.6 F H 09/01/21 03:55 88 18 162/84 97 09/01/21 00:17 100.5 F H 100 18 150/87 95 08/31/21 21:01 99.8 F H 106 H 18 134/98 Intake and Output 08/31/21 09/01/21 09/01/21 22:59 06:59 14:59 Other: Weight 73.028 kg Rigor is noted - Constitutional General appearance: average body habitus, cooperative, no acute distress - EENT Eyes: EOMI, PERRLA, dentition normal, normal appearance - Neck Neck: normal ROM - Respiratory Respiratory: bilateral: CTA, negative: diminished, dullness, rales - Cardiovascular Rhythm: regular Heart sounds: normal: S1, S2 Abnormal Heart Sounds: no systolic murmur, no diastolic murmur, no rub, no S3 Gallop, no S4 Gallop, no click, no other - Gastrointestinal General gastrointestinal: normal bowel sounds, soft, no tenderness - Integumentary Integumentary: normal, normal turgor - Neurologic Neurologic: CNII-XII intact - Musculoskeletal Musculoskeletal: generalized weakness, strength equal bilaterally - Psychiatric Psychiatric: A&O x's 3, appropriate affect, intact judgment & insight Results CBC & Chem 7: 08/31/21 21:56 08/31/21 21:56 Labs: Abnormal Lab Results - Last 24 Hours (Table) 08/31/21 08/31/21 08/31/21 Range/Units 21:56 21:56 23:40 Lymphocytes # 0.5 L (1.0-4.8) k/uL Sodium 133 L (137-145) mmol/L Chloride 96 L (98-107) mmol/L BUN 26 H (9-20) mg/dL Glucose 280 H (74-99) mg/dL POC Glucose (mg/dL) (70-110) mg/dL Urine Protein Trace H (Negative) Urine Glucose (UA) 3+ H (Negative) Ur Leukocyte Esterase Trace H (Negative) Urine WBC 8 H (0-5) /hpf Urine Mucus Rare H (None) /hpf 09/01/21 09/01/21 Range/Units 03:14 05:31 Lymphocytes # (1.0-4.8) k/uL Sodium (137-145) mmol/L Chloride (98-107) mmol/L BUN (9-20) mg/dL Glucose (74-99) mg/dL POC Glucose (mg/dL) 157 H 190 H (70-110) mg/dL Urine Protein (Negative) Urine Glucose (UA) (Negative) Ur Leukocyte Esterase (Negative) Urine WBC (0-5) /hpf Urine Mucus (None) /hpf Thrombosis Risk Factor Assmnt - DVT/VTE Prophylaxis DVT/VTE Prophylaxis: Pharmacologic Prophylaxis ordered - Choose All That Apply Each Risk Factor Represents 2 Points: Patient confined to bed Each Risk Factor Represents 3 Points: Age 75 years or older Thrombosis Risk Factor Assessment Total Risk Factor Score: 5 Thrombosis Risk Factor Assessment Level: High Risk Assessment and Plan Plan: 1. Persistent fever off and on, for the past 2 months, without any significant focal or localizing signs, chest x-ray only shows left basilar atelectasis, worsening perihilar infiltrate, however patient has history of removal of the left lung, from a previous accidental injury, patient has been seen by Dr. Root/Felix Chan, we'll going to consult Dr. Christine, and Dr. Conley. Blood cultures, Legionella, and metabolic for other sources of fever of unknown origin, CAT scan abdomen and pelvis, might need to obtain out to immune markers. Coronary virus, influenza A and influenza B is negative obtain echocardiogram, evaluate for end ocarditis, history of aortic valve surgery 2. Hypertension amlodipine 10 mg daily a syncopal 5 mg a.m. 3. Diabetes mellitus type 2 Glucotrol 5 mg daily restart metformin, GFR is okay 57 4. History of pyelonephritis, no current symptoms urinalysis only shows WBC of 8 5. BPH without lower urinary tract symptomatology Previous tobacco, with 60 pack years Hyperlipidemia, Lipitor 10 daily COPD without exacerbation we'll provide when necessary albuterol IP Pulmicort GI prophylaxis DVT prophylaxis
[2021-09-01] MEDS ORDERED: ENOXAPARIN 30 MG/0.3 ML SYRINGE SQ SCH (14:00)
[2021-09-01] MEDS ORDERED: ACETAMINOPHEN TAB 325 MG TAB PO PRN (14:27)
--- NOTE | 2021-09-01 15:11 | CT ---
EXAMINATION TYPE: CT abdomen pelvis w con CT DLP: 1179 mGycm, Automated exposure control for dose reduction was used. DATE OF EXAM: 09/01/2021 2:39 PM COMPARISON: None. CLINICAL INDICATION:Male, 81 years old with history of fever abdominal pain FUO, evAL MALIGNANCY; fev er, abd pain TECHNIQUE: Standard CT of the abdomen and pelvis following the administration of 100 cc of Isovue 3 00 IV contrast material and oral contrast. Coronal and sagittal reformats were performed. FINDINGS: Motion limited examination. LOWER CHEST: Mild cardiomegaly. Elevated left hemidiaphragm. Left lower lobe patchy airspace opacitie s. ABDOMEN LIVER: Unremarkable GALLBLADDER AND BILE DUCTS: Unremarkable. PANCREAS: Unremarkable. SPLEEN: Unremarkable. ADRENAL GLANDS: Unremarkable. KIDNEYS AND URETERS: Mild right hydroureteronephrosis with an obstructing calculus measuring 7 x 5 mm just proximal to the ureterovesical junction. No hydronephrosis involving the left kidney. Nonspecif ic bilateral perinephric fat stranding. PELVIS BLADDER: Unremarkable REPRODUCTIVE: Prostate is enlarged in size measuring 5.0 cm in transverse dimension. ABDOMEN & PELVIS STOMACH AND BOWEL: Moderate to large hiatal hernia with a third of the stomach in the chest. Colonic diverticulosis without evidence for acute diverticulitis. No evidence of bowel obstruction. PERITONEUM.: No evidence of pneumoperitoneum or free fluid. VASCULATURE: Moderate atherosclerotic calcifications are present throughout the abdominal aorta and i ts branches. Mixed atherosclerotic and noncalcified plaque within the right common iliac artery causi ng severe stenosis. No evidence of aortic aneurysm. MUSCULOSKELETAL: No acute osseous abnormalities. No suspicious osseous lesions. Degenerative changes of visualized spine most pronounced at L5-S1 LYMPH NODES: No gross evidence for lymphadenopathy. SOFT TISSUE/ABDOMINAL WALL: Unremarkable IMPRESSION: 1. Mild right hydroureteronephrosis with an obstructing 7 x 5 mm calculus just proximal to the urete rovesical junction. 2. No evidence of malignancy or suspicious adenopathy. 3. Moderate to large hiatal hernia. 4. Mixed atherosclerotic and noncalcified plaque within the right common iliac artery causing severe stenosis. 5. Right lower lobe patchy airspace opacities which may represent aspiration.
[2021-09-01] MEDS: AMPICILLIN-SULBACTAM 3 GM in SODIUM CHLORIDE 0.9% 100 ML IVPB SCH (17:17)
[2021-09-01 17:18] LABS: Glucose,Whole Blood 173 mg/dL (70-110)
[2021-09-01 21:37] LABS: Glucose,Whole Blood 151 mg/dL (70-110)
--- NOTE | 2021-09-02 00:28 | P.CONS ---
History of Present Illness - Reason for Consult Consult date: 09/01/21 Fever over 2 months Requesting physician: Kacie Tavares - Chief Complaint Fever x 2 months off and on - History of Present Illness Patient is a 81-year-old male with a past medical history significant for hypertension aortic valve surgery has been brought into the ER for evaluation of fever apparently the patient mentioning the patient is having fever off and on for the last 2 months fever has been as high as 102 F no clear history of any headache or URI symptoms patient did have occasional cough which is chronic no new or worsening cough or sputum production no nausea or vomiting however holding extremities to be poor no abdominal pain or any diarrhea with the symptom the patient has been evaluated by ER physician on arrival to the ER patient did have a fever of 102.6 F patient was tachycardic and did have a normal white count creatinine was normal liver enzymes are normal patient urine was mildly positive influenza and [place] PCR was negative patient did have a chest x-ray cardiomegaly left basilar atelectasis patient was started on Roceph in and Zithromax concerning for possible pneumonia patient subsequently did have a CT abdominal pelvis completed which shows mild right-sided hydronephrosis with obstructing 7.5 cm calculus just proximal to the ureterovesical junction no evidence of any malignancy right lower lobe opacity may represent aspiration, infectious disease was consulted for further management of antibiotic therapy Review of Systems Positive point has been mentioned in the HPI rest of the systems are negative Past Medical History Past Medical History: Asthma, Diabetes Mellitus, GERD/Reflux, Hyperlipidemia, Hypertension, Osteoarthritis (OA), Sleep Apnea/CPAP/BIPAP Additional Past Medical History / Comment(s): heart murmur, hx of bleeding stomach ulcer and during 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-pt received 64 pints of blood (over 30 yrs ago)-only one working lung, hx of fx rt ankle-painful,ana maría cataracts and hearing aides History of Any Multi-Drug Resistant Organisms: None Reported Past Surgical History: Orthopedic Surgery Additional Past Surgical History / Comment(s): rt ankle,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,rt cataract Past Anesthesia/Blood Transfusion Reactions: No Reported Reaction Additional Past Anesthesia/Blood Transfusion Reaction / Comm: hx of 64 pints of blood,no reaction Smoking Status: Former smoker - Past Family History Father History Unknown: Yes Medications and Allergies Home Medications Medication Instructions Recorded Confirmed Type Aspirin EC [Ecotrin] 325 mg PO DAILY 07/31/21 09/01/21 History Calcium/D3/Zinc/Copper/Chastity 1 tab PO DAILY 07/31/21 09/01/21 History [Citracal-D3 Maximum Plus Caplt] Enalapril Maleate 5 mg PO DAILY 07/31/21 09/01/21 History HYDROcodone/APAP 7.5-325MG [[place] 1 tab PO QID PRN 07/31/21 09/01/21 History 7.5-325] Lecithin, Soy [Lecithin] 1,200 mg PO DAILY 07/31/21 09/01/21 History Multivit-Min/FA/Lycopen/Lutein 1 tab PO DAILY 07/31/21 09/01/21 History [Centrum Silver Tablet] Niacin 500 mg PO DAILY 07/31/21 09/01/21 History [place]-3/Dha/Epa/Fish Oil [Fish Oil 1 cap PO DAILY 07/31/21 09/01/21 History 1,000 mg Softgel] Omeprazole Magnesium [PriLOSEC OTC] 20 mg PO DAILY 07/31/21 09/01/21 History Ubidecarenone [Co Q-10] 100 mg PO DAILY 07/31/21 09/01/21 History Vitamin B Complex 1 cap PO BID 07/31/21 09/01/21 History Zinc 50 mg PO DAILY 07/31/21 09/01/21 History amLODIPine [Norvasc] 10 mg PO DAILY 07/31/21 09/01/21 History flaxseed oiL [[place]-3 Flaxseed Oil] 1,000 mg PO DAILY 07/31/21 09/01/21 History glyBURIDE/METFORMIN HCL 1 tab PO DAILY 07/31/21 09/01/21 History [Glucovance 5-500 mg] Simvastatin [Zocor] 20 mg PO DAILY 08/20/21 09/01/21 History glyBURIDE/METFORMIN HCL 0.25 - 0.5 tab PO DAILY PRN 08/20/21 09/01/21 History [Glucovance 5-500 mg] Prednisolone Acetate/Pf 1 drop RIGHT EYE QID 09/01/21 09/01/21 History [Prednisolone Acet 1% Eye Drop] Allergies Allergy/AdvReac Type Severity Reaction Status Date / Time Sulfa (Sulfonamide Allergy Unknown Rash/Hives, Verified 09/01/21 12:54 Antibiotics) Redness Physical Exam Vitals: Vital Signs Temp Pulse Pulse Resp BP BP Pulse Ox 09/01/21 11:32 98.1 F 92 L 09/01/21 07:00 98.3 F 100 18 153/75 99 09/01/21 06:50 102 F H 100 16 118/65 97 09/01/21 05:48 122 H 29 H 149/94 96 09/01/21 05:42 102.6 F H 09/01/21 03:55 88 18 162/84 97 09/01/21 00:17 100.5 F H 100 18 150/87 95 08/31/21 21:01 99.8 F H 106 H 18 134/98 Intake and Output 08/31/21 09/01/21 09/01/21 22:59 06:59 14:59 Other: Voiding Method Diaper Weight 73.028 kg GENERAL DESCRIPTION: Elderly male lying in bed, no distress. No tachypnea or accessory muscle of respiration use. HEENT: Shows Pallor , no scleral icterus. Oral mucous membrane is dry. No pharyngeal erythema or thrush NECK: Trachea central, no thyromegaly. LUNGS: Unlabored breathing. Clear to auscultation anteriorly. No wheeze or crackle. HEART: S1, S2, regular rate and rhythm. No loud murmur ABDOMEN: Soft, no tenderness , guarding or rigidity, no organomegaly EXTREMITIES: Left medial leg did have erythematous patch. SKIN: No rash, no masses palpable. NEUROLOGICAL: The patient is sleepy lethargic and orientation could not be determined Results CBC & Chem 7: 08/31/21 21:56 08/31/21 21:56 Labs: Abnormal Lab Results - Last 24 Hours (Table) 08/31/21 08/31/21 08/31/21 Range/Units 21:56 21:56 23:40 Lymphocytes # 0.5 L (1.0-4.8) k/uL Sodium 133 L (137-145) mmol/L Chloride 96 L (98-107) mmol/L BUN 26 H (9-20) mg/dL Glucose 280 H (74-99) mg/dL POC Glucose (mg/dL) (70-110) mg/dL C-Reactive Protein (<1.0) mg/dL Urine Protein Trace H (Negative) Urine Glucose (UA) 3+ H (Negative) Ur Leukocyte Esterase Trace H (Negative) Urine WBC 8 H (0-5) /hpf Urine Mucus Rare H (None) /hpf 09/01/21 09/01/21 09/01/21 Range/Units 03:14 05:31 12:40 Lymphocytes # (1.0-4.8) k/uL Sodium (137-145) mmol/L Chloride (98-107) mmol/L BUN (9-20) mg/dL Glucose (74-99) mg/dL POC Glucose (mg/dL) 157 H 190 H 259 H (70-110) mg/dL C-Reactive Protein (<1.0) mg/dL Urine Protein (Negative) Urine Glucose (UA) (Negative) Ur Leukocyte Esterase (Negative) Urine WBC (0-5) /hpf Urine Mucus (None) /hpf 09/01/21 Range/Units 12:52 Lymphocytes # (1.0-4.8) k/uL Sodium (137-145) mmol/L Chloride (98-107) mmol/L BUN (9-20) mg/dL Glucose (74-99) mg/dL POC Glucose (mg/dL) (70-110) mg/dL C-Reactive Protein 8.3 H (<1.0) mg/dL Urine Protein (Negative) Urine Glucose (UA) (Negative) Ur Leukocyte Esterase (Negative) Urine WBC (0-5) /hpf Urine Mucus (None) /hpf Assessment and Plan (1) Fever Current Visit: Yes Status: Acute Code(s): R50.9 - FEVER, UNSPECIFIED SNOMED Code(s): 908357824 Plan: 1patient presented to hospital with sepsis in this patient did have a fever tachycardia source is likely a combination of the complicated UTI as the patient did have evidence of mild hydronephrosis and hydroureter plus minus aspiration pneumonitis and there is evidence of right lower lobe pneumonia on the CT. 2we will obtain urology evaluation for the hydronephrosis and the renal stone seen on the CT 3discontinue Rocephin and Zithromax 4we will add Unasyn 3 g every 8 hours while waiting for the culture to finalize and work-up to be completed We will follow on clinical condition and cultures to further adjust medication if needed Thank you for this consultation will follow this patient along with you Time with Patient: Greater than 30
[2021-09-02] MEDS: AMPICILLIN-SULBACTAM 3 GM in SODIUM CHLORIDE 0.9% 100 ML IVPB SCH ×4 (01:26→23:02)
[2021-09-02] MEDS: SODIUM CHLORIDE 0.9% 1,000 ML IV SCH ×3 (02:26→17:16)
[2021-09-02 07:10] LABS: Glucose,Whole Blood 105 mg/dL (70-110)
[2021-09-02] MEDS ORDERED: AZITHROMYCIN 500 MG TAB PO SCH (09:00)
[2021-09-02] MEDS: ATORVASTATIN 10 MG TAB PO SCH (09:23)
[2021-09-02] MEDS: amLODIPine 10 MG TAB PO SCH (09:23)
[2021-09-02] MEDS: ASPIRIN 325 MG TAB PO SCH (09:23)
[2021-09-02] MEDS: PANTOPRAZOLE 40 MG TABLET PO SCH (09:23)
[2021-09-02] MEDS: metFORMIN 500 MG TAB PO SCH (09:24)
[2021-09-02] MEDS: ENOXAPARIN 40 MG/0.4 ML SYRINGE SQ SCH (09:24)
[2021-09-02] MEDS: glipiZIDE 5 MG TAB PO SCH (09:25)
[2021-09-02] MEDS: NIACIN TR 500 MG CAPLET PO SCH (09:25)
--- NOTE | 2021-09-02 09:29 | P.GSCN ---
History of Present Illness Consult date: 09/02/21 Reason for Consult: Hydronephrosis Requesting physician: Lucas Conley History of present illness: The patient is an 81-year-old white male with an unremarkable urologic history. Specifically, he denies any prior history of UTIs or urolithiasis. He now presents with a two-month history of intermittent fever. He denies dysuria, hematuria, and flank pain. 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-pt recei melanie 64 pints of blood (over 30 yrs ago)-only one working lung, hx of fx rt ankle-painful,ana maría cataracts and hearing aides History of Any Multi-Drug Resistant Organisms: None Reported Past Surgical History: Orthopedic Surgery Additional Past Surgical History / Comment(s): rt ankle,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,rt cataract Past Anesthesia/Blood Transfusion Reactions: No Reported Reaction Additional Past Anesthesia/Blood Transfusion Reaction / Comm: hx of 64 pints of blood,no reaction Smoking Status: Former smoker - Past Family History Father History Unknown: Yes Medications and Allergies Home Medications Medication Instructions Recorded Confirmed Type Aspirin EC [Ecotrin] 325 mg PO DAILY 07/31/21 09/01/21 History Calcium/D3/Zinc/Copper/Chastity 1 tab PO DAILY 07/31/21 09/01/21 History [Citracal-D3 Maximum Plus Caplt] Enalapril Maleate 5 mg PO DAILY 07/31/21 09/01/21 History HYDROcodone/APAP 7.5-325MG [[place] 1 tab PO QID PRN 07/31/21 09/01/21 History 7.5-325] Lecithin, Soy [Lecithin] 1,200 mg PO DAILY 07/31/21 09/01/21 History Multivit-Min/FA/Lycopen/Lutein 1 tab PO DAILY 07/31/21 09/01/21 History [Centrum Silver Tablet] Niacin 500 mg PO DAILY 07/31/21 09/01/21 History [place]-3/Dha/Epa/Fish Oil [Fish Oil 1 cap PO DAILY 07/31/21 09/01/21 History 1,000 mg Softgel] Omeprazole Magnesium [PriLOSEC OTC] 20 mg PO DAILY 07/31/21 09/01/21 History Ubidecarenone [Co Q-10] 100 mg PO DAILY 07/31/21 09/01/21 History Vitamin B Complex 1 cap PO BID 07/31/21 09/01/21 History Zinc 50 mg PO DAILY 07/31/21 09/01/21 History amLODIPine [Norvasc] 10 mg PO DAILY 07/31/21 09/01/21 History flaxseed oiL [[place]-3 Flaxseed Oil] 1,000 mg PO DAILY 07/31/21 09/01/21 History glyBURIDE/METFORMIN HCL 1 tab PO DAILY 07/31/21 09/01/21 History [Glucovance 5-500 mg] Simvastatin [Zocor] 20 mg PO DAILY 08/20/21 09/01/21 History glyBURIDE/METFORMIN HCL 0.25 - 0.5 tab PO DAILY PRN 08/20/21 09/01/21 History [Glucovance 5-500 mg] Prednisolone Acetate/Pf 1 drop RIGHT EYE QID 09/01/21 09/01/21 History [Prednisolone Acet 1% Eye Drop] Allergies Allergy/AdvReac Type Severity Reaction Status Date / Time Sulfa (Sulfonamide Allergy Unknown Rash/Hives, Verified 09/01/21 12:54 Antibiotics) Redness Surgical - Exam Vital Signs Temp Pulse Resp BP 99.8 F H 106 H 18 134/98 08/31/21 21:01 08/31/21 21:01 08/31/21 21:01 08/31/21 21:01 - General well developed, well nourished, no distress - Respiratory normal respiratory effort - Abdomen Abdomen: soft, non tender, no guarding, no rigid, no rebound Hernia: umbilical - Genitourinary Normal phallus, normal urethral meatus. The scrotum and testes normal. A 2 cm left spermatocele is present. - Rectum Rectum: normal sphincter tone, no masses, other (Prostate mildly enlarged and smooth) - Psychiatric oriented to time, oriented to person, oriented to place, speech is normal, memory intact Results - Labs 08/31/21 21:56 07/22/22 21:56 Abnormal Lab Results - Last 24 Hours (Table) 09/01/21 09/01/21 09/01/21 Range/Units 12:40 12:52 12:52 ESR 30 H (0-15) mm/hr POC Glucose (mg/dL) 259 H (70-110) mg/dL C-Reactive Protein 8.3 H (<1.0) mg/dL Procalcitonin (0.02-0.09) ng/mL 09/01/21 09/01/21 09/01/21 Range/Units 12:52 17:17 21:36 ESR (0-15) mm/hr POC Glucose (mg/dL) 173 H 151 H (70-110) mg/dL C-Reactive Protein (<1.0) mg/dL Procalcitonin 1.09 H (0.02-0.09) ng/mL Microbiology - Last 24 Hours (Table) 08/31/21 21:56 Blood Culture - Preliminary Blood No Growth after 24 hours - Imaging CT scan - abdomen: report reviewed, image reviewed Assessment and Plan (1) Calculus of ureter Current Visit: Yes Status: Acute Code(s): N20.1 - CALCULUS OF URETER SNOMED Code(s): 48796289 (2) Hydronephrosis with renal and ureteral calculous obstruction Current Visit: Yes Status: Acute Code(s): N13.2 - HYDRONEPHROSIS WITH RENAL AND URETERAL CALCULOUS OBSTRUCTION SNOMED Code(s): 454483432 Plan: I had a lengthy discussion with the patient regarding his CT scan, which revealed mild right hydronephrosis due to a 5x7 mm right distal ureteral calculus. Although urinalysis does not suggest the presence of infection, he c ould have infection trapped above the calculus and this may be the source of his fever. In view of this, I have suggested he undergo cystoscopy with right ureteral stent insertion. This really relieve his ureteral obstruction and determine if this is the source of his fever. He would subsequently undergo a secondary procedure once his condition has improved, consisting of cystoscopy, right ureteral stent removal, right ureteroscopy with laser lithotripsy and possible stone basketing. The rationale for stent placement was discussed in detail with the patient, and he was made aware of potential risks which include anesthesia, infection, ureteral injury, and inability to successfully place the stent. He wishes to discuss this with his , and this will be performed later today if he chooses to proceed. Time with Patient: Greater than 30
[2021-09-02 09:32] LABS: Basophils # (A) 0.03 X 10*3/uL (0.00-0.10); Basophils % (A) 0.4 %; Eosinophils # (A) 0.09 X 10*3/uL (0.04-0.35); Eosinophils % (A) 1.1 %; HCT 37.2 % (39.6-50.0); HGB 11.8 g/dL (13.0-17.0); Immature Grans, Automated 0.4 %; Lymphocytes # (A) 0.71 X 10*3/uL (0.90-5.00); Lymphocytes % (A) 8.3 %; MCH 30.3 pg (27.0-32.0); MCHC 31.7 g/dL (32.0-37.0); MCV 95.4 fL (80.0-97.0); Monocytes # (A) 1.25 X 10*3/uL (0.20-1.00); Monocytes % (A) 14.6 %; NRBC Per 100 WBC 0 /100 WBCS (0.0-0.0); Neutrophils # (A) 6.44 X 10*3/uL (1.80-7.70); Neutrophils % (A) 75.2 %; Platelet Count 144 X 10*3/uL (140-440); RDW 12.5 % (11.5-14.5); WBC 8.55 X 10*3/uL (4.50-10.00)
[2021-09-02] MEDS: lisinopriL 5 MG TAB PO SCH (09:34)
[2021-09-02 09:46] LABS: African American GFR (CKD) 53.5 (60.0-200.0); Albumin 3.3 g/dL (3.8-4.9); Albumin/Globulin Ratio 1.5 (1.60-3.17); Anion Gap 11.5 mmol/L (10.00-18.00); BUN/Creat Ratio 21.07 Ratio (12.00-20.00); Blood Urea Nitrogen 29.5 mg/dL (9.0-27.0); Calcium 8.4 mg/dL (8.7-10.3); Carbon Dioxide 25.5 mmol/L (20.0-27.5); Globulin 2.2 g/dL (1.6-3.3); Non-African American GFR(CKD) 46.1 (60.0-200.0); Potassium 4.5 mmol/L (3.5-5.5); Total Bilirubin 0.3 mg/dL (0.30-1.20); Total Protein 5.5 g/dL (6.2-8.2)
--- NOTE | 2021-09-02 11:32 | CA ---
Transthoracic Echo Report Name: Waqas Lira Age: 81 Gender: M : 1940 Exam Date: 09/01/2021 16:04 Exam Location: [facility] Ht (in): 67 Wt (lb): 161 Ordering Physician: Kacie Tavares MD Attending/Referring Phys: Global Climate Change Researcher Katharine Jennings RDCS Procedure CPT: Indications: ednocarditis, FUO Cardiac Hx: Technical Quality: Fair Contrast 1: Total Dose (mL): Contrast 2: Total Dose (mL): MEASUREMENTS (Male / Female) Normal Values 2D ECHO LV Diastolic Diameter PLAX 3.2 cm 4.2 - 5.9 / 3.9 - 5.3 cm LV Systolic Diameter PLAX 2.3 cm IVS Diastolic Thickness 1.6 cm 0.6 - 1.0 / 0.6 - 0.9 cm LVPW Diastolic Thickness 1.5 cm 0.6 - 1.0 / 0.6 - 0.9 cm LV Relative Wall Thickness 1.0 M-MODE Aortic Root Diameter MM 3.7 cm LA Systolic Diameter MM 3.7 cm LA Ao Ratio MM 1.0 AV Cusp Separation MM 2.3 cm DOPPLER AV Peak Velocity 106.7 cm/s AV Peak Gradient 4.6 mmHg LVOT Peak Velocity 106.4 cm/s LVOT Peak Gradient 4.5 mmHg MV Area PHT 2.7 cm??? Mitral E Point Velocity 70.4 cm/s Mitral A Point Velocity 102.9 cm/s Mitral E to A Ratio 0.7 MV Deceleration Time 278.1 ms MV E' Velocity 5.9 cm/s Mitral E to MV E' Ratio 11.9 TR Peak Velocity 238.5 cm/s TR Peak Gradient 22.7 mmHg Right Ventricular Systolic Press 25.7 mmHg FINDINGS Left Ventricle Moderately increased left ventricular wall thickness. Normal left ventricular systolic function with no obvious regional wall motion abnormalities. Left ventricular ejection fraction is estimated at 55-60 %. Right Ventricle Normal right ventricular size. Right ventricular systolic pressure within normal limits. Right Atrium Normal right atrial size. Left Atrium Mildly increased left atrial area. No evidence for an atrial septal defect. Mitral Valve Structurally normal mitral valve. No mitral stenosis, regurgitation or prolapse. Aortic Valve No aortic stenosis. No aortic regurgitation. Aortic valve sclerosis. Tricuspid Valve Mild tricuspid regurgitation. Pulmonic Valve Trace pulmonic regurgitation. Pericardium No pericardial effusion. Aorta Normal size aortic root and proximal ascending aorta. CONCLUSIONS Normal LV function normal wall motion mild tricuspid regurgitation Previewed by: Dr. Jermain Serrato MD (Electronically Signed) Final Date: 02 September 2021 11:31
[2021-09-02 12:06] LABS: Glucose,Whole Blood 113 mg/dL (70-110)
[2021-09-02] MEDS ORDERED: ONDANSETRON 4 MG/2 ML VIAL ONE (14:24)
[2021-09-02] MEDS ORDERED: SUCCINYLCHOLINE CHLORIDE 200 MG/10 ML VIAL IV ONE (14:24)
[2021-09-02] MEDS ORDERED: MIDAZOLAM 2 MG/2 ML VIAL ONE (14:24)
[2021-09-02] MEDS ORDERED: fentaNYL (PF) 50 MCG/ML 2 ML AMP ONE (14:24)
[2021-09-02] MEDS ORDERED: LIDOCAINE 2% INJ 20 MG/ML (2 ML VIAL) ONE (14:24)
[2021-09-02] MEDS ORDERED: DEXAMETHASONE SOD PHOSPHATE 10 MG/ML 1 ML VIAL ONE (14:24)
[2021-09-02] MEDS ORDERED: PROPOFOL 10 MG/ML 20 ML VIAL IV ONE (14:24)
[2021-09-02] MEDS ORDERED: LACTATED RINGERS 1,000 ML IV ONE (14:26)
--- NOTE | 2021-09-02 15:08 | FL ---
Intraoperative/procedural fluoroscopic services were provided. Total fluoroscopy time is 11.6 seconds with a total of 2 submitted images to PACS. Please see the operative/procedural note for further det ails.
[2021-09-02 15:11] LABS: Glucose,Whole Blood 87 mg/dL (70-110)
--- NOTE | 2021-09-02 15:11 | P.OP ---
Date of Procedure: 09/02/21 Preoperative Diagnosis: Right ureteral calculus Postoperative Diagnosis: Same Procedure(s) Performed: Cystoscopy, right ureteral stent insertion Anesthesia: UMA Surgeon: Colt Mccarthy Estimated Blood Loss (ml): 0 IV fluids (ml): 500 Pathology: none sent Condition: stable Disposition: PACU Indications for Procedure: The patient is an 81-year-old white male with an unremarkable urologic history. Specifically, he denies any prior history of UTIs or urolithiasis. He now presents with a two-month history of intermittent fever. He denies dysuria, hematuria, and flank pain. His CT scan revealed mild right hydronephrosis due to a 5x7 mm right distal ureteral calculus. Although urinalysis does not suggest the presence of infection, he could have infection trapped above the calculus and this may be the source of his fever. In view of this, I have suggested he undergo cystoscopy with right ureteral stent insertion and he now comes for this reason Operative Findings: Impacted right distal ureteral calculus. Description of Procedure: The patient was taken to the operating room and placed in the dorsolithotomy position, with legs supported in Gary stirrups. The external genitalia was prepped and draped sterilely. The 30 lens was used to introduce the 22-Khmer Stortz cystoscopic sheath through the urethra and into the bladder under direct vision. The prostatic urethra showed evidence of mild obstruction due to a high median bar. The bladder was examined in its entirety. Both ureteral orifices were of normal anatomic location and configuration, and clear urine effluxed f rom both. No tumors or foreign bodies were seen. The bladder was mildly trabeculated. A 0.035 inch Glidewire was passed through the cystoscope. The right ureteral orifice was cannulated, and the Glidewire was slowly advanced up to the calculus. With considerable manipulation it was possible to pass the Glidewire beyond the impacted calculus and up to the renal pelvis. A 24 cm, 6- Khmer double-J ureteral stent was placed over the wire. Proper stent positioning was verified fluoroscopically and endoscopically. The bladder was emptied and the cystoscope removed. The patient tolerated the procedure well was taken to the recovery room in stable condition.
--- NOTE | 2021-09-02 15:58 | P.PN ---
Subjective Progress Note Date: 09/02/21 Principal diagnosis: Fever 2 months &P Date: 09/01/21 This is an 81-year-old gentleman, known history of hypertension, aortic valve surgery, recent cataract, in July 2021, bilaterally done, who apparently was seen in emergency room, secondary to fever. Upon questioning the , fevers been going on off and on for the past 2 months, he sees Dr. Aleja Chan, has minimal cough, there is no neck pain, patient has headache, patient denies any back pain, abdominal pain, that is localized to a particular organ, per the , the patient only has off one lung that is working, as a result of previous injury, left lung in the past. In the emergency room rule out urinalysis essentially negative, WBCs 8, chest x- ray shows basilar atelectasis, left side, with elevation of left hemidiaphragm, coarsening of lung markings of obesity count of 8.4, creatinine of 1.17, liver function test is normal lactic acid is normal, and pro-calcitonin level is normal, liver function test is normal. Coronavirus PCR negative, influenza A and B- 09/02: Patient is seen by infectious disease, antibiotic IV Unasyn based on CAT scan of the abdomen and pelvis, revealed a small nobstructing kidney stone, 5x7 mm, right side. ureterohydronephrosis moderate hiatal hernia, right patchy lobe airspace disease in the present aspiration, no evidence of malignancy, liver, bladder looks okay echocardiogram is still pending patient scheduled for cystoscopy, and placement of right parasternal stent insertion, by Dr. Mccarthy urine culture pending blood culture pending ASSESSMENT AND PLAN 1. Persistent fever off and on, for the past 2 months, without any significant focal or localizing signs, chest x-ray only shows left basilar atelectasis, w orsening perihilar infiltrate, urine WBCs on the eighth, however CAT scan, shows obstructing 7 x 5 mm calculus, proximal to the ureterovesicular junction, with mild hydroureteronephrosis. however patient has history of removal of the left lung, from a previous accidental injury, patient has been seen by Dr. Aleja Chan, we'll going to consult Dr. Christine, and Dr. Conley. Blood cultures, Legionella, pending CAT scan abdomen and pelvis, Coronary virus, influenza A and influenza B is negative obtain echocardiogram, evaluate for endocarditis, history of aortic valve surgery. Skin exam is nonlocalizing, there is some local excoriation left knee, but not infected, 2. Infected presumed. right kidney stone, with mild ureterohydronephrosis, 5 mm x 7 mm, patient scheduled for stone extraction, by Dr. Mccarthy on 09/02/2021 2. Hypertension amlodipine 10 mg daily a syncopal 5 mg a.m. 3. Diabetes mellitus type 2 Glucotrol 5 mg daily restart metformin, GFR is okay 57 4. History of pyelonephritis, no current symptoms urinalysis only shows WBC of 8 5. BPH without lower urinary tract symptomatology Previous tobacco, with 60 pack years Hyperlipidemia, Lipitor 10 daily COPD without exacerbation we'll provide when necessary albuterol IP Pulmicort GI prophylaxis DVT prophylaxis Review of Systems Constitutional: Reports as per HPI, Reports chills, Reports lethargy, Reports malaise, Reports poor appetite, Reports weakness Ears, nose, mouth and throat: Reports as per HPI, Denies epistaxis, Denies headache, Denies nasal congestion, Denies neck lump, Denies sinus pressure, Denies sore throat Cardiovascular: Reports as per HPI, Denies decreased exercise tolerance, Denies dyspnea on exertion, Denies leg edema, Denies palpitations, Denies shortness of breath Respiratory: Reports as per HPI, Reports cough, Reports snoring, Denies congestion, Denies cough with sputum, Denies dyspnea, Denies hemoptysis, Denies home oxygen, Denies respiratory infections, Denies wheezing Gastrointestinal: Reports as per HPI, Reports abdominal pain, Denies belching, Denies bloating, Denies BRBPR, Denies change in bowel habits, Denies coffee ground emesis, Denies constipation, Denies diarrhea, Denies dyspepsia, Denies early satiety, Denies excessive gas, Denies heartburn, Denies hematemesis, Denies hematochezia, Denies indigestion, Denies jaundice, Denies lactose intolerance, Denies loss of appetite, Denies melena, Denies nausea, Denies vomiting Genitourinary: Reports as per HPI Musculoskeletal: Reports as per HPI Integumentary: Reports as per HPI Neurological: Reports as per HPI, Reports gait dysfunction, Reports visual changes, Denies double vision, Denies migraines, Denies motor disturbance, Denies numbness Psychiatric: Reports as per HPI, Reports sleep disturbances Endocrine: Reports as per HPI, Reports excessive thirst, Reports fatigue, Reports polydipsia, Reports polyuria Hematologic/Lymphatic: Reports as per HPI Allergic/Immunologic: Reports as per HPI Vitals: Vital Signs Temp Pulse Pulse Resp BP BP Pulse Ox 09/01/21 07:00 98.3 F 100 18 153/75 99 09/01/21 06:50 102 F H 100 16 118/65 97 09/01/21 05:48 122 H 29 H 149/94 96 09/01/21 05:42 102.6 F H 09/01/21 03:55 88 18 162/84 97 09/01/21 00:17 100.5 F H 100 18 150/87 95 08/31/21 21:01 99.8 F H 106 H 18 134/98 Intake and Output 08/31/21 09/01/21 09/01/21 22:59 06:59 14:59 Other: Weight 73.028 kg Rigor is noted - Constitutional General appearance: average body habitus, cooperative, no acute distress - EENT Eyes: EOMI, PERRLA, dentition normal, normal appearance - Neck Neck: normal ROM - Respiratory Respiratory: bilateral: CTA, negative: diminished, dullness, rales - Cardiovascular Rhythm: regular Heart sounds: normal: S1, S2 Abnormal Heart Sounds: no systolic murmur, no diastolic murmur, no rub, no S3 Gallop, no S4 Gallop, no click, no other - Gastrointestinal General gastrointestinal: normal bowel sounds, soft, no tenderness - Integumentary Integumentary: normal, normal turgor - Neurologic Neurologic: CNII-XII intact - Musculoskeletal Musculoskeletal: generalized weakness, strength equal bilaterally - Psychiatric Psychiatric: A&O x's 3, appropriate affect, intact judgment & insight Current Medications Acetaminophen (Acetaminophen Tab 325 Mg Tab) 650 mg PO Q4HR PRN PRN Reason: Fever and/ or Pain Last Admin: 09/01/21 14:36 Dose: 650 mg Hydrocodone Bitart/Acetaminophen (Hydrocodone/Apap 7.5-325mg 1 Each Tab) 1 each PO Q4H PRN PRN Reason: Pain Amlodipine Besylate (A[facility]odipine 10 Mg Tab) [facility] [place] Admin: 09/02/21 09:23 Dose: 10 mg Aspirin (Aspirin 325 Mg Tab) 325 mg PO DAILY [facility] Last Admin: 09/02/21 09:23 Dose: 325 mg Atorvastatin Calcium (Atorvastatin 10 Mg Tab) 10 mg PO DAILY [facility] Last Admin: 09/02/21 09:23 Dose: 10 mg Enoxaparin Sodium (Enoxaparin 40 Mg/0.4 Ml Syringe) 40 mg SQ DAILY [facility] Last Admin: 09/02/21 09:24 Dose: Not Given Glipizide (Glipizide 5 Mg Tab) 5 mg PO DAILY [facility] Last Admin: 09/02/21 09:25 Dose: 5 mg Sodium Chloride (Saline 0.9%) 1,000 mls @ 130 mls/hr IV .Q7H42M [facility] Last Admin: 09/02/21 09:35 Dose: Not Given Ampicillin Sodium/Sulbactam (Sodium 3 gm/ Sodium Chloride) 100 mls @ 200 mls/hr IVPB Q8H [facility]; Protocol Lisinopril (Lisinopril 5 Mg Tab) [facility] [place] Admin: 09/02/21 09:34 Dose: 5 mg Metformin HCl (Metformin 500 Mg Tab) 500 mg PO DAILY [facility] Last Admin: 09/02/21 09:24 Dose: Not Given Miscellaneous Information (Pneumonia Protocol Utilized 1 Each Misc) 1 each PO ONCE PRN PRN Reason: Per Protocol Niacin (Niacin Tr 500 Mg Caplet) 500 mg PO DAILY [facility] Last Admin: 09/02/21 09:25 Dose: 500 mg Pantoprazole Sodium (Pantoprazole 40 Mg Tablet) [facility] [place] Admin: 09/02/21 09:23 Dose: 40 mg Laboratory Results - Last 24 Hours 09/01/21 09/01/21 09/01/21 12:52 14:28 17:17 WBC RBC Hgb Hct MCV MCH MCHC RDW Plt Count MPV Immature Gran % (Auto) Absolute Nucleated RBC Neutrophils % Lymphocytes % Monocytes % Eosinophils % Basophils % Immature Gran # Neutrophils # Lymphocytes # Monocytes # Eosinophils # Basophils # NRBC/100 WBC Diff Sodium Potassium Chloride Carbon Dioxide Anion Gap BUN Creatinine Est GFR (CKD-EPI)AfAm Est GFR (CKD-EPI)NonAf BUN/Creatinine Ratio Glucose POC Glucose (mg/dL) 173 H POC Glu Category Consultant ID Radha Guerrero Calcium Total Bilirubin AST ALT Alkaline Phosphatase Total Protein Albumin Globulin Albumin/Globulin Ratio Procalcitonin 1.09 H Legionella Source Urine Urine Legionella Ag Negative 09/01/21 09/02/21 09/02/21 21:36 04:27 04:27 WBC 8.55 RBC 3.90 L Hgb 11.8 L Hct 37.2 L MCV 95.4 MCH 30.3 MCHC 31.7 L RDW 12.5 Plt Count 144 MPV 10.0 Immature Gran % (Auto) 0.4 Absolute Nucleated RBC 0 Neutrophils % 75.2 Lymphocytes % 8.3 Monocytes % 14.6 Eosinophils % 1.1 Basophils % 0.4 Immature Gran # 0.03 Neutrophils # 6.44 Lymphocytes # 0.71 L Monocytes # 1.25 H Eosinophils # 0.09 Basophils # 0.03 NRBC/100 WBC Diff 0 Sodium 139 Potassium 4.5 Chloride 102 Carbon Dioxide 25.5 Anion Gap 11.50 BUN 29.5 H Creatinine 1.4 Est GFR (CKD-EPI)AfAm 53.5 L Est GFR (CKD-EPI)NonAf 46.1 L BUN/Creatinine Ratio 21.07 H Glucose 91 POC Glucose (mg/dL) 151 H POC Glu Category Consultant ID Ramu Addyline Calcium 8.4 L Total Bilirubin 0.30 AST 32 ALT 27 Alkaline Phosphatase 51 Total Protein 5.5 L Albumin 3.3 L Globulin 2.2 Albumin/Globulin Ratio 1.50 L Procalcitonin Legionella Source Urine Legionella Ag 09/02/21 09/02/21 09/02/21 07:09 12:04 15:10 WBC RBC Hgb Hct MCV MCH MCHC RDW Plt Count MPV Immature Gran % (Auto) Absolute Nucleated RBC Neutrophils % Lymphocytes % Monocytes % Eosinophils % Basophils % Immature Gran # Neutrophils # Lymphocytes # Monocytes # Eosinophils # Basophils # NRBC/100 WBC Diff Sodium Potassium Chloride Carbon Dioxide Anion Gap BUN Creatinine Est GFR (CKD-EPI)AfAm Est GFR (CKD-EPI)NonAf BUN/Creatinine Ratio Glucose POC Glucose (mg/dL) 105 113 H 87 POC Glu Category Consultant ID Radha Guerrero Makailey McCurley, Josephine Calcium Total Bilirubin AST ALT Alkaline Phosphatase Total Protein Albumin Globulin Albumin/Globulin Ratio Procalcitonin Legionella Source Urine Legionella Ag Vital Signs - 24 hr 0709/01/21 09/01/21 17:22 19:23 20:00 Temperature 98.2 F 98.0 F Pulse Rate [ Storage Administrator ] Pulse Rate [ 82 Pulse Oximetery ] Respiratory 17 24 Rate Blood Pressure 155/77 [Left Arm] Blood Pressure [Right Arm Supine] O2 Sat by Pulse 100 Oximetry 09/02/21 09/02/21 09/02/21 02:00 06:57 08:00 Temperature 97.8 F 98.6 F Pulse Rate [ Storage Administrator ] Pulse Rate [ 69 76 76 Pulse Oximetery ] Respiratory 16 16 16 Rate Blood Pressure 114/61 132/66 [Left Arm] Blood Pressure [Right Arm Supine] O2 Sat by Pulse 98 97 Oximetry 09/02/21 09/02/21 09/02/21 14:00 15:05 15:17 Temperature 97.5 F L Pulse Rate [ 83 84 Storage Administrator ] Pulse Rate [ 76 Pulse Oximetery ] Respiratory 16 14 16 Rate Blood Pressure [Left Arm] Blood Pressure 125/65 130/67 [Right Arm Supine] O2 Sat by Pulse 98 99 Oximetry 09/02/21 09/02/21 15:29 15:43 Temperature Pulse Rate [ 73 72 Storage Administrator ] Pulse Rate [ Pulse Oximetery ] Respiratory 16 16 Rate Blood Pressure [Left Arm] Blood Pressure 126/67 137/70 [Right Arm Supine] O2 Sat by Pulse 100 99 Oximetry Objective - Vital Signs Vital signs: Vital Signs Temp 98.6 F 09/02/21 06:57 Pulse 76 09/02/21 08:00 Resp 16 09/02/21 08:00 BP 132/66 09/02/21 06:57 Pulse Ox 97 09/02/21 06:57 FiO2 Intake & Output 09/01/21 09/02/21 09/02/21 18:59 06:59 18:59 Intake Total 845 Output Total 200 Balance 845 -200 Intake: Intake, IV Titration 845 Amount Sodium Chloride 0.9% 1, 845 000 ml @ 130 mls/hr IV . Q7H42M [facility] Rx#:[id number] Output: Urine 200 Other: Voiding Method Diaper Urinal Urinal Diaper Diaper # Voids 1 - Labs CBC & Chem 7: 09/02/21 04:27 09/02/21 04:27 Labs: Abnormal Lab Results - Last 24 Hours (Table) 09/01/21 09/01/21 09/01/21 Range/Units 12:40 12:52 12:52 RBC (4.40-5.60) X 10*6/uL Hgb (13.0-17.0) g/dL Hct (39.6-50.0) % MCHC (32.0-37.0) g/dL Lymphocytes # (0.90-5.00) X 10*3/uL Monocytes # (0.20-1.00) X 10*3/uL ESR 30 H (0-15) mm/hr BUN (9.0-27.0) mg/dL Est GFR (CKD-EPI)AfAm (60.0-200.0) Est GFR (CKD-EPI)NonAf (60.0-200.0) BUN/Creatinine Ratio (12.00-20.00) Ratio POC Glucose (mg/dL) 259 H (70-110) mg/dL Calcium (8.7-10.3) mg/dL C-Reactive Protein 8.3 H (<1.0) mg/dL Total Protein (6.2-8.2) g/dL Albumin (3.8-4.9) g/dL Albumin/Globulin Ratio (1.60-3.17) g/dL Procalcitonin (0.02-0.09) ng/mL 09/01/21 09/01/21 09/01/21 Range/Units 12:52 17:17 21:36 RBC (4.40-5.60) X 10*6/uL Hgb (13.0-17.0) g/dL Hct (39.6-50.0) % MCHC (32.0-37.0) g/dL Lymphocytes # (0.90-5.00) X 10*3/uL Monocytes # (0.20-1.00) X 10*3/uL ESR (0-15) mm/hr BUN (9.0-27.0) mg/dL Est GFR (CKD-EPI)AfAm (60.0-200.0) Est GFR (CKD-EPI)NonAf (60.0-200.0) BUN/Creatinine Ratio (12.00-20.00) Ratio POC Glucose (mg/dL) 173 H 151 H (70-110) mg/dL Calcium (8.7-10.3) mg/dL C-Reactive Protein (<1.0) mg/dL Total Protein (6.2-8.2) g/dL Albumin (3.8-4.9) g/dL Albumin/Globulin Ratio (1.60-3.17) g/dL Procalcitonin 1.09 H (0.02-0.09) ng/mL 09/02/21 09/02/21 09/02/21 Range/Units 04:27 04:27 12:04 RBC 3.90 L (4.40-5.60) X 10*6/uL Hgb 11.8 L (13.0-17.0) g/dL Hct 37.2 L (39.6-50.0) % MCHC 31.7 L (32.0-37.0) g/dL Lymphocytes # 0.71 L (0.90-5.00) X 10*3/uL Monocytes # 1.25 H (0.20-1.00) X 10*3/uL ESR (0-15) mm/hr BUN 29.5 H (9.0-27.0) mg/dL Est GFR (CKD-EPI)AfAm 53.5 L (60.0-200.0) Est GFR (CKD-EPI)NonAf 46.1 L (60.0-200.0) BUN/Creatinine Ratio 21.07 H (12.00-20.00) Ratio POC Glucose (mg/dL) 113 H (70-110) mg/dL Calcium 8.4 L (8.7-10.3) mg/dL C-Reactive Protein (<1.0) mg/dL Total Protein 5.5 L (6.2-8.2) g/dL Albumin 3.3 L (3.8-4.9) g/dL Albumin/Globulin Ratio 1.50 L (1.60-3.17) g/dL Procalcitonin (0.02-0.09) ng/mL Microbiology - Last 24 Hours (Table) 08/31/21 21:56 Blood Culture - Preliminary Blood No Growth after 24 hours
[2021-09-02 16:48] LABS: Glucose,Whole Blood 116 mg/dL (70-110)
[2021-09-02 21:39] LABS: Glucose,Whole Blood 141 mg/dL (70-110)
[2021-09-03] MEDS: SODIUM CHLORIDE 0.9% 1,000 ML IV SCH ×2 (06:09→09:05)
[2021-09-03] MEDS: AMPICILLIN-SULBACTAM 3 GM in SODIUM CHLORIDE 0.9% 100 ML IVPB SCH ×4 (06:09→21:32)
[2021-09-03 07:26] LABS: Glucose,Whole Blood 179 mg/dL (70-110)
[2021-09-03] MEDS: ASPIRIN 325 MG TAB PO SCH (09:04)
[2021-09-03] MEDS: metFORMIN 500 MG TAB PO SCH (09:04)
[2021-09-03] MEDS: amLODIPine 10 MG TAB PO SCH (09:04)
[2021-09-03] MEDS: PANTOPRAZOLE 40 MG TABLET PO SCH (09:04)
[2021-09-03] MEDS: ATORVASTATIN 10 MG TAB PO SCH (09:04)
[2021-09-03] MEDS: NIACIN TR 500 MG CAPLET PO SCH (09:08)
[2021-09-03] MEDS: glipiZIDE 5 MG TAB PO SCH (09:08)
[2021-09-03] MEDS: ENOXAPARIN 40 MG/0.4 ML SYRINGE SQ SCH (09:08)
[2021-09-03 09:11] LABS: Basophils # (A) 0 X 10*3/uL (0.00-0.10); Basophils % (A) 0 %; Eosinophils # (A) 0 X 10*3/uL (0.04-0.35); Eosinophils % (A) 0 %; HCT 38.5 % (39.6-50.0); HGB 12.3 g/dL (13.0-17.0); Immature Grans, Automated 0.6 %; Lymphocytes # (A) 0.75 X 10*3/uL (0.90-5.00); Lymphocytes % (A) 11.8 %; MCH 30.8 pg (27.0-32.0); MCHC 31.9 g/dL (32.0-37.0); MCV 96.3 fL (80.0-97.0); Mean Platelet Volume 10.4 fL (9.5-12.2); Monocytes % (A) 6.3 %; NRBC Per 100 WBC 0 /100 WBCS (0.0-0.0); Neutrophils # (A) 5.14 X 10*3/uL (1.80-7.70); Neutrophils % (A) 81.3 %; Platelet Count 153 X 10*3/uL (140-440); RDW 12.3 % (11.5-14.5); WBC 6.33 X 10*3/uL (4.50-10.00)
[2021-09-03] MEDS: lisinopriL 5 MG TAB PO SCH (09:13)
[2021-09-03 09:31] LABS: ALT 27 U/L (10-49); AST 25 U/L (14-35); African American GFR (CKD) 71.6 (60.0-200.0); Albumin 3.4 g/dL (3.8-4.9); Albumin/Globulin Ratio 1.42 (1.60-3.17); Alkaline Phosphatase 52 U/L (41-126); BUN/Creat Ratio 27.09 Ratio (12.00-20.00); Blood Urea Nitrogen 29.8 mg/dL (9.0-27.0); Calcium 8.6 mg/dL (8.7-10.3); Carbon Dioxide 25.2 mmol/L (20.0-27.5); Chloride 107 mmol/L (96-109); Globulin 2.4 g/dL (1.6-3.3); Glucose 168 mg/dL (70-110); Non-African American GFR(CKD) 61.8 (60.0-200.0); Potassium 5.5 mmol/L (3.5-5.5); Sodium 141 mmol/L (135-145); Total Bilirubin <0.15 mg/dL (0.30-1.20); Total Protein 5.8 g/dL (6.2-8.2)
[2021-09-03 11:43] LABS: Glucose,Whole Blood 224 mg/dL (70-110)
--- NOTE | 2021-09-03 12:23 | XR ---
EXAMINATION TYPE: XR chest 1V portable DATE OF EXAM: 09/03/2021 Comparison: 08/31/[address] 09/01/2021 Clinical History: 81-year-old male followup, unable to wean off 02 Findings: Scattered interstitial densities. Patchy left basilar opacity. Asymmetric elevation left hemidiaphrag m redemonstrated. Known underlying moderate to large hiatal hernia. When reviewing the patient's 09/01 CT, questionable defect of the anterior left hemidiaphragm through which the mesenteric fat pro trudes, refer to sagittal image 94. Impression: 1. Scattered interstitial changes persist as well as patchy left basilar opacity. Correlate to exclud e pneumonia or atypical pneumonias. 2. Known moderate to large hiatal hernia. 3. In addition, there is continued asymmetric elevation left hemidiaphragm. If concern for hemidiaphr agmatic paralysis, a fluoroscopic sniff test can be performed. 4. In addition, upon review of the 09/01/[address], there is a questionable small defect along the anterior left hemidiaphragm through which some mesenteric fat protrudes. A diaphragmatic hernia is no t excluded.
[2021-09-03 14:54] LABS: Appearance,Urine Cloudy (Clear); Bacteria,Urine Occasional /hpf; Bilirubin,Urine Negative (Negative); Blood,Urine Large (Negative); Budding Yeast,Urine Few /hpf; Color,Urine Red; Glucose,Urine (UA) Trace (Negative); Ketones,Urine Trace (Negative); Leukocyte Esterase,Urine Moderate (Negative); Mucus,Urine Rare /hpf; Nitrite,Urine Negative (Negative); Protein,Urine 2+ (Negative); RBC,Urine >182 /hpf (0-5); Specific Gravity,Urine 1.024 (1.001-1.035); Urobilinogen,Urine <2.0 mg/dL (<2.0); WBC,Urine 52 /hpf (0-5)
[2021-09-03 17:15] LABS: Glucose,Whole Blood 115 mg/dL (70-110)
--- NOTE | 2021-09-03 17:46 | P.PN ---
Subjective Progress Note Date: 09/03/21 Principal diagnosis: Phacoemulsification of cataract both eyes, Jul right; Aug left. Last seen in office Aug,. Doing well at that time. He was doing well at the time with Va without correction 20/25, OD, and 20/60 OS. There was no undo inflammation at the time of the examination and was released at that time to return in approximately 1 month for a dilated examination of both eyes. Current medications for left eye 1 drop prednisolone acetate 1 drop 4 times krishna ly in left eye, reducing to twice daily until the supply of medication ran out - about 6 weeks total. And ketorolac 1 drop twice daily in left for 2 weeks, total. Artificial tears are being used on an as needed basis. I will reorder all these medications immediately, but they are subject to change, if Infectious Disease feels differently. Objective - Vital Signs Vital signs: Vital Signs Temp 97.9 F 09/03/21 13:50 Pulse 67 09/03/21 13:50 Resp 18 09/03/21 14:00 BP 132/70 09/03/21 13:50 Pulse Ox 96 09/03/21 16:00 FiO2 Intake & Output 09/02/21 09/03/21 09/03/21 18:59 06:59 18:59 Intake Total 700 358 Output Total 25 Balance 675 358 Intake: IV 500 Oral 200 358 Output: Urine 25 Other: Voiding Method Urinal Urinal Urinal Diaper Diaper Diaper # Voids 3 2 2 # Bowel Movements 1 1 - Labs CBC & Chem 7: 09/03/21 03:35 09/03/21 03:35 Labs: Abnormal Lab Results - Last 24 Hours (Table) 09/02/21 09/03/21 09/03/21 Range/Units 21:38 03:35 03:35 RBC 4.00 L (4.40-5.60) X 10*6/uL Hgb 12.3 L (13.0-17.0) g/dL Hct 38.5 L (39.6-50.0) % MCHC 31.9 L (32.0-37.0) g/dL Lymphocytes # 0.75 L (0.90-5.00) X 10*3/uL Eosinophils # 0 L (0.04-0.35) X 10*3/uL Anion Gap 8.80 L (10.00-18.00) mmol/L BUN 29.8 H (9.0-27.0) mg/dL BUN/Creatinine Ratio 27.09 H (12.00-20.00) Ratio Glucose 168 H (70-110) mg/dL POC Glucose (mg/dL) 141 H (70-110) mg/dL Calcium 8.6 L (8.7-10.3) mg/dL Total Bilirubin <0.15 L (0.30-1.20) mg/dL Total Protein 5.8 L (6.2-8.2) g/dL Albumin 3.4 L (3.8-4.9) g/dL Albumin/Globulin Ratio 1.42 L (1.60-3.17) g/dL Urine Protein (Negative) Urine Glucose (UA) (Negative) Urine Ketones (Negative) Urine Blood (Negative) Ur Leukocyte Esterase (Negative) Urine RBC (0-5) /hpf Urine WBC (0-5) /hpf Urine Bacteria (None) /hpf Urine Mucus (None) /hpf Urine Yeast (Budding) (None) /hpf 09/03/21 09/03/21 09/03/21 Range/Units 07:24 11:42 13:20 RBC (4.40-5.60) X 10*6/uL Hgb (13.0-17.0) g/dL Hct (39.6-50.0) % MCHC (32.0-37.0) g/dL Lymphocytes # (0.90-5.00) X 10*3/uL Eosinophils # (0.04-0.35) X 10*3/uL Anion Gap (10.00-18.00) mmol/L BUN (9.0-27.0) mg/dL BUN/Creatinine Ratio (12.00-20.00) Ratio Glucose (70-110) mg/dL POC Glucose (mg/dL) 179 H 224 H (70-110) mg/dL Calcium (8.7-10.3) mg/dL Total Bilirubin (0.30-1.20) mg/dL Total Protein (6.2-8.2) g/dL Albumin (3.8-4.9) g/dL Albumin/Globulin Ratio (1.60-3.17) g/dL Urine Protein 2+ H (Negative) Urine Glucose (UA) Trace H (Negative) Urine Ketones Trace H (Negative) Urine Blood Large H (Negative) Ur Leukocyte Esterase Moderate H (Negative) Urine RBC >182 H (0-5) /hpf Urine WBC 52 H (0-5) /hpf Urine Bacteria Occasional H (None) /hpf Urine Mucus Rare H (None) /hpf Urine Yeast (Budding) Few H (None) /hpf 09/03/21 Range/Units 17:14 RBC (4.40-5.60) X 10*6/uL Hgb (13.0-17.0) g/dL Hct (39.6-50.0) % MCHC (32.0-37.0) g/dL Lymphocytes # (0.90-5.00) X 10*3/uL Eosinophils # (0.04-0.35) X 10*3/uL Anion Gap (10.00-18.00) mmol/L BUN (9.0-27.0) mg/dL BUN/Creatinine Ratio (12.00-20.00) Ratio Glucose (70-110) mg/dL POC Glucose (mg/dL) 115 H (70-110) mg/dL Calcium (8.7-10.3) mg/dL Total Bilirubin (0.30-1.20) mg/dL Total Protein (6.2-8.2) g/dL Albumin (3.8-4.9) g/dL Albumin/Globulin Ratio (1.60-3.17) g/dL Urine Protein (Negative) Urine Glucose (UA) (Negative) Urine Ketones (Negative) Urine Blood (Negative) Ur Leukocyte Esterase (Negative) Urine RBC (0-5) /hpf Urine WBC (0-5) /hpf Urine Bacteria (None) /hpf Urine Mucus (None) /hpf Urine Yeast (Budding) (None) /hpf Microbiology - Last 24 Hours (Table) 08/31/21 21:56 Blood Culture - Preliminary Blood No Growth after 48 hours
[2021-09-03] MEDS ORDERED: ARTIFICIAL TEARS-HYPROMELLOSE DROPS 15 ML BTL BOTH EYES PRN (17:48)
[2021-09-03] MEDS: INSULIN ASPART (NovoLOG) 100 UNIT/ML VIAL SQ SCH ×2 (17:55→21:34)
--- NOTE | 2021-09-03 18:15 | P.PN ---
Progress Note - Text Progress Note Date: 09/03/21 The patient is afebrile. He has no complaints. He has experienced some hematuria since the stent was placed, and he was reassured that this is expected. Arrangements will be made for him to undergo cystoscopy, right ureteral stent removal, right ureteroscopy with laser lithotripsy next month, assuming the cause of his fever has been diagnosed and treated.
[2021-09-03 20:37] LABS: Glucose,Whole Blood 112 mg/dL (70-110)
[2021-09-03] MEDS: KETOROLAC 0.5% OPHTH DROPS 5 ML BTL LEFT EYE SCH (21:34)
[2021-09-03] MEDS: prednisoLONE ACETATE 1% OPHTH DROPS 5 ML BTL LEFT EYE SCH ×2 (21:34→21:35)
--- NOTE | 2021-09-03 23:53 | P.PN ---
Subjective Progress Note Date: 09/02/21 Principal diagnosis: Complicated UTI and possible aspiration pneumonia Patient is 81-year-old male with multiple comorbidities presenting to the hospital with off and on fever for the last 2 months weakness and decreased oral intake patient did have a CT of abdominal pelvis with evidence of right- sided hydronephrosis in this patient who is status post cystoscopy and right- sided ureteral stent placement by urology on 09/02/2021. CT also showed possible right lower lobe pneumonia On today's evaluation that is 09/02/2021, the patient denies having any fever and chills patient is feeling slightly better breathing comfortably no chest pain shortness of breath or cough no abdominal pain no diarrhea Objective - Vital Signs Vital signs: Vital Signs Temp 98.8 F 09/02/21 15:00 Pulse 78 09/02/21 15:00 Resp 18 09/02/21 15:00 BP 120/60 09/02/21 15:00 Pulse Ox 96 09/02/21 15:00 FiO2 Intake & Output 09/02/21 15:59 Intake Total 700 Output Total 25 Balance 675 Intake: IV 500 Oral 200 Output: Urine 25 Other: Voiding Method Urinal Diaper # Voids 3 # Bowel Movements 1 - Exam GENERAL DESCRIPTION: An elderly male lying in bed in no distress RESPIRATORY SYSTEM: Unlabored breathing , decreased breath sounds at bases HEART: S1 S2 regular rate and rhythm , ABDOMEN: Soft , no tenderness EXTREMITIES: No edema feet - Labs CBC & Chem 7: 09/03/21 03:35 09/03/21 03:35 Labs: Abnormal Lab Results - Last 24 Hours (Table) 09/02/21 09/02/21 09/02/21 Range/Units 04:27 04:27 12:04 RBC 3.90 L (4.40-5.60) X 10*6/uL Hgb 11.8 L (13.0-17.0) g/dL Hct 37.2 L (39.6-50.0) % MCHC 31.7 L (32.0-37.0) g/dL Lymphocytes # 0.71 L (0.90-5.00) X 10*3/uL Monocytes # 1.25 H (0.20-1.00) X 10*3/uL BUN 29.5 H (9.0-27.0) mg/dL Est GFR (CKD-EPI)AfAm 53.5 L (60.0-200.0) Est GFR (CKD-EPI)NonAf 46.1 L (60.0-200.0) BUN/Creatinine Ratio 21.07 H (12.00-20.00) Ratio POC Glucose (mg/dL) 113 H (70-110) mg/dL Calcium 8.4 L (8.7-10.3) mg/dL Total Protein 5.5 L (6.2-8.2) g/dL Albumin 3.3 L (3.8-4.9) g/dL Albumin/Globulin Ratio 1.50 L (1.60-3.17) g/dL 09/02/21 09/02/21 09/03/21 Range/Units 16:47 21:38 07:24 RBC (4.40-5.60) X 10*6/uL Hgb (13.0-17.0) g/dL Hct (39.6-50.0) % MCHC (32.0-37.0) g/dL Lymphocytes # (0.90-5.00) X 10*3/uL Monocytes # (0.20-1.00) X 10*3/uL BUN (9.0-27.0) mg/dL Est GFR (CKD-EPI)AfAm (60.0-200.0) Est GFR (CKD-EPI)NonAf (60.0-200.0) BUN/Creatinine Ratio (12.00-20.00) Ratio POC Glucose (mg/dL) 116 H 141 H 179 H (70-110) mg/dL Calcium (8.7-10.3) mg/dL Total Protein (6.2-8.2) g/dL Albumin (3.8-4.9) g/dL Albumin/Globulin Ratio (1.60-3.17) g/dL Microbiology - Last 24 Hours (Table) 08/31/21 21:56 Blood Culture - Preliminary Blood No Growth after 48 hours Assessment and Plan (1) Fever Current Visit: Yes Status: Acute Code(s): R50.9 - FEVER, UNSPECIFIED SNOMED Code(s): 974186085 Plan: 1patient presented to hospital with sepsis in this patient did have a fever tachycardia source is likely a combination of the complicated UTI as the patient did have evidence of mild hydronephrosis and hydroureter plus minus aspiration pneumonitis and there is evidence of right lower lobe pneumonia on the CT. 2patient is status post cystoscopy and right ureteral stent placement 3patient will continue with Unasyn 3 g every 8 hours while waiting for the culture to finalize and work-up to be completed Time with Patient: Less than 30
--- NOTE | 2021-09-03 23:55 | P.PN ---
Subjective Progress Note Date: 09/03/21 Principal diagnosis: Complicated UTI and possible aspiration pneumonia Patient is 81-year-old male with multiple comorbidities presenting to the hospital with off and on fever for the last 2 months weakness and decreased oral intake patient did have a CT of abdominal pelvis with evidence of right- sided hydronephrosis in this patient who is status post cystoscopy and right- sided ureteral stent placement by urology on 09/02/2021. CT also showed possible right lower lobe pneumonia On today's evaluation that is 09/03/2021, the patient is afebrile, patient is complaining of shortness of breath however no chest pain , the patient did have a cough not bringing up any sputum abdominal pain and no diarrhea Objective - Vital Signs Vital signs: Vital Signs Temp 97.9 F 09/03/21 13:50 Pulse 67 09/03/21 13:50 Resp 18 09/03/21 14:00 BP 132/70 09/03/21 13:50 Pulse Ox 96 09/03/21 16:00 FiO2 Intake & Output 09/02/21 09/03/21 09/03/21 18:59 06:59 18:59 Intake Total 700 358 Output Total 25 Balance 675 358 Intake: IV 500 Oral 200 358 Output: Urine 25 Other: Voiding Method Urinal Urinal Urinal Diaper Diaper Diaper # Voids 3 2 2 # Bowel Movements 1 1 - Exam GENERAL DESCRIPTION: An elderly male lying in bed in no distress RESPIRATORY SYSTEM: Unlabored breathing , decreased breath sounds at bases HEART: S1 S2 regular rate and rhythm , ABDOMEN: Soft , no tenderness EXTREMITIES: No edema feet - Labs CBC & Chem 7: 09/03/21 03:35 09/03/21 03:35 Labs: Abnormal Lab Results - Last 24 Hours (Table) 09/02/21 09/02/21 09/03/21 Range/Units 16:47 21:38 03:35 RBC 4.00 L (4.40-5.60) X 10*6/uL Hgb 12.3 L (13.0-17.0) g/dL Hct 38.5 L (39.6-50.0) % MCHC 31.9 L (32.0-37.0) g/dL Lymphocytes # 0.75 L (0.90-5.00) X 10*3/uL Eosinophils # 0 L (0.04-0.35) X 10*3/uL Anion Gap (10.00-18.00) mmol/L BUN (9.0-27.0) mg/dL BUN/Creatinine Ratio (12.00-20.00) Ratio Glucose (70-110) mg/dL POC Glucose (mg/dL) 116 H 141 H (70-110) mg/dL Calcium (8.7-10.3) mg/dL Total Bilirubin (0.30-1.20) mg/dL Total Protein (6.2-8.2) g/dL Albumin (3.8-4.9) g/dL Albumin/Globulin Ratio (1.60-3.17) g/dL Urine Protein (Negative) Urine Glucose (UA) (Negative) Urine Ketones (Negative) Urine Blood (Negative) Ur Leukocyte Esterase (Negative) Urine RBC (0-5) /hpf Urine WBC (0-5) /hpf Urine Bacteria (None) /hpf Urine Mucus (None) /hpf Urine Yeast (Budding) (None) /hpf 09/03/21 09/03/21 09/03/21 Range/Units 03:35 07:24 11:42 RBC (4.40-5.60) X 10*6/uL Hgb (13.0-17.0) g/dL Hct (39.6-50.0) % MCHC (32.0-37.0) g/dL Lymphocytes # (0.90-5.00) X 10*3/uL Eosinophils # (0.04-0.35) X 10*3/uL Anion Gap 8.80 L (10.00-18.00) mmol/L BUN 29.8 H (9.0-27.0) mg/dL BUN/Creatinine Ratio 27.09 H (12.00-20.00) Ratio Glucose 168 H (70-110) mg/dL POC Glucose (mg/dL) 179 H 224 H (70-110) mg/dL Calcium 8.6 L (8.7-10.3) mg/dL Total Bilirubin <0.15 L (0.30-1.20) mg/dL Total Protein 5.8 L (6.2-8.2) g/dL Albumin 3.4 L (3.8-4.9) g/dL Albumin/Globulin Ratio 1.42 L (1.60-3.17) g/dL Urine Protein (Negative) Urine Glucose (UA) (Negative) Urine Ketones (Negative) Urine Blood (Negative) Ur Leukocyte Esterase (Negative) Urine RBC (0-5) /hpf Urine WBC (0-5) /hpf Urine Bacteria (None) /hpf Urine Mucus (None) /hpf Urine Yeast (Budding) (None) /hpf 09/03/21 Range/Units 13:20 RBC (4.40-5.60) X 10*6/uL Hgb (13.0-17.0) g/dL Hct (39.6-50.0) % MCHC (32.0-37.0) g/dL Lymphocytes # (0.90-5.00) X 10*3/uL Eosinophils # (0.04-0.35) X 10*3/uL Anion Gap (10.00-18.00) mmol/L BUN (9.0-27.0) mg/dL BUN/Creatinine Ratio (12.00-20.00) Ratio Glucose (70-110) mg/dL POC Glucose (mg/dL) (70-110) mg/dL Calcium (8.7-10.3) mg/dL Total Bilirubin (0.30-1.20) mg/dL Total Protein (6.2-8.2) g/dL Albumin (3.8-4.9) g/dL Albumin/Globulin Ratio (1.60-3.17) g/dL Urine Protein 2+ H (Negative) Urine Glucose (UA) Trace H (Negative) Urine Ketones Trace H (Negative) Urine Blood Large H (Negative) Ur Leukocyte Esterase Moderate H (Negative) Urine RBC >182 H (0-5) /hpf Urine WBC 52 H (0-5) /hpf Urine Bacteria Occasional H (None) /hpf Urine Mucus Rare H (None) /hpf Urine Yeast (Budding) Few H (None) /hpf Microbiology - Last 24 Hours (Table) 08/31/21 21:56 Blood Culture - Preliminary Blood No Growth after 48 hours Assessment and Plan (1) Fever Current Visit: Yes Status: Acute Code(s): R50.9 - FEVER, UNSPECIFIED SNOMED Code(s): 642224501 Plan: 1patient presented to hospital with sepsis in this patient did have a fever tachycardia source is likely a combination of the complicated UTI as the patient did have evidence of mild hydronephrosis and hydroureter plus minus aspiration pneumonitis and there is evidence of right lower lobe pneumonia on the CT. 2patient is status post cystoscopy and right ureteral stent placement 3patient currently being treated with the Unasyn to continue we will repeat his chest x-ray as well as a UA and adjust antibiotic further if needed Time with Patient: Less than 30
[2021-09-04 03:35] LABS: Basophils % (A) 0 %; Eosinophils # (A) 0.1 k/uL (0-0.7); Eosinophils % (A) 1 %; HCT 37.4 % (39.0-53.0); HGB 12.1 gm/dL (13.0-17.5); Lymphocytes # (A) 1.1 k/uL (1.0-4.8); Lymphocytes % (A) 14 %; MCH 31.4 pg (25.0-35.0); MCHC 32.3 g/dL (31.0-37.0); MCV 97.1 fL (80.0-100.0); Monocytes # (A) 0.6 k/uL (0-1.0); Monocytes % (A) 7 %; Neutrophils % (A) 76 %; Platelet Count 164 k/uL (150-450); RBC 3.85 m/uL (4.30-5.90); RDW 12.7 % (11.5-15.5); WBC 7.9 k/uL (3.8-10.6)
[2021-09-04 03:39] LABS: African American GFR (CKD) 79 (>60 ml/min/1.73 sqM); Anion Gap 2 mmol/L; Blood Urea Nitrogen 26 mg/dL (9-20); Calcium 8.3 mg/dL (8.4-10.2); Carbon Dioxide 28 mmol/L (22-30); Chloride 110 mmol/L (98-107); Glucose 98 mg/dL (74-99); Non-African American GFR(CKD) 69 (>60 ml/min/1.73 sqM); Potassium 4.5 mmol/L (3.5-5.1); Sodium 140 mmol/L (137-145)
--- NOTE | 2021-09-04 04:51 | P.PN ---
Subjective Progress Note Date: 09/03/21 This is an 81-year-old gentleman, known history of hypertension, aortic valve surgery, recent cataract, in July 2021, bilaterally done, who apparently was seen in emergency room, secondary to fever. Upon questioning the , fevers been going on off and on for the past 2 months, he sees Dr. Aleja Chan, has minimal cough, there is no neck pain, patient has headache, patient denies any back pain, abdominal pain, that is localized to a particular organ, per the , the patient only has off one lung that is working, as a result of previous injury, left lung in the past. In the emergency room rule out urinalysis essentially negative, WBCs 8, chest x- ray shows basilar atelectasis, left side, with elevation of left hemidiaphragm, coarsening of lung markings of obesity count of 8.4, creatinine of 1.17, liver function test is normal lactic acid is normal, and pro-calcitonin level is normal, liver function test is normal. Coronavirus PCR negative, influenza A and B- 09/02: Patient is seen by infectious disease, antibiotic IV Unasyn based on CAT scan of the abdomen and pelvis, revealed a small nobstructing kidney stone, 5x7 mm, right side. ureterohydronephrosis moderate hiatal hernia, right patchy lobe airspace disease in the present aspiration, no evidence of malignancy, liver, bladder looks okay echocardiogram is still pending patient scheduled for cystoscopy, and placement of right parasternal stent insertion, by Dr. Mccarthy urine culture pending blood culture pending 09/03/2021 Patient is seen in follow up today and at the bedside. Multiple medical consultations following including infectious disease and opthalmology. Patient recently had some cataract surgery 6 weeks ago and continues on eye drops and is concerned as these drops have not been resumed and was told to continue until follow up appointment. Will consult Dr. Yobani Vega and appreciate input and recommendations. Patient is continued on IV antibiotics with urology following. Patient is status post right ureteral stent placement and continues with hematuria noted in the urinal. Awaiting urine cultures. Hemoglogin is stable and recommend repeat am labs. Will also initiate accuchecks achs and co ntinue sliding scale. Patient is afebrile and denies chest pain or palpitations. Patient is currently on 2L of 02 via [place] and denies shortness of breath. Will order chest xray. Review of systems: Constitutional: No reports of fatigue, fever, or chills Cardiovascular: No reports of chest pain or palpitations Respiratory: No reports of shortness of breath or cough GI: no reports of nausea, no reports of of vomiting : No reports of dysuria or retention Neurovascular: reports of generalized weakness All medications have been reviewed Active Medications Acetaminophen (Acetaminophen Tab 325 Mg Tab) 650 mg PO Q4HR PRN PRN Reason: Fever and/ or Pain Last Admin: 09/01/21 14:36 Dose: 650 mg Hydrocodone Bitart/Acetaminophen (Hydrocodone/Apap 7.5-325mg 1 Each Tab) 1 each PO Q4H PRN PRN Reason: Pain Amlodipine Besylate (Amlodipine 10 Mg Tab) 10 mg PO QAM COUNTS INCLUDE 234 BEDS AT THE [facility] Last Admin: 09/03/21 09:04 Dose: 10 mg Artificial Tears (Artificial Tears-Hypromellose Drops 15 Ml Btl) 1 drops BOTH EYES QID PRN PRN Reason: Dry Eye(s) Aspirin (Aspirin 325 Mg Tab) 325 mg PO DAILY COUNTS INCLUDE 234 BEDS AT THE [facility] Last Admin: 09/03/21 09:04 Dose: 325 mg Atorvastatin Calcium (Atorvastatin 10 Mg Tab) 10 mg PO DAILY COUNTS INCLUDE 234 BEDS AT THE [facility] Last Admin: 09/03/21 09:04 Dose: 10 mg Enoxaparin Sodium (Enoxaparin 40 Mg/0.4 Ml Syringe) 40 mg SQ DAILY COUNTS INCLUDE 234 BEDS AT THE [facility] Last Admin: 09/03/21 09:08 Dose: 40 mg Glipizide (Glipizide 5 Mg Tab) 5 mg PO DAILY COUNTS INCLUDE 234 BEDS AT THE [facility] Last Admin: 09/03/21 09:08 Dose: 5 mg Ampicillin Sodium/Sulbactam (Sodium 3 gm/ Sodium Chloride) 100 mls @ 200 mls/hr IVPB Q8H COUNTS INCLUDE 234 BEDS AT THE [facility]; Protocol Last Admin: 09/03/21 21:32 Dose: 200 mls/hr Insulin Aspart (Insulin Aspart (Novolog) 100 Unit/Ml Vial) 0 unit SQ ACHS COUNTS INCLUDE 234 BEDS AT THE [facility]; Protocol Last Admin: 09/03/21 21:34 Dose: Not Given Ketorolac Tromethamine (Ketorolac 0.5% Ophth Drops 5 Ml Btl) 1 drops LEFT EYE BID COUNTS INCLUDE 234 BEDS AT THE [facility] Stop: 09/06/21 23:59 Last Admin: 09/03/21 21:34 Dose: Not Given Lisinopril (Lisinopril 5 Mg Tab) 5 mg PO QAM COUNTS INCLUDE 234 BEDS AT THE [facility] Last Admin: 09/03/21 09:13 Dose: 5 mg Metformin HCl (Metformin 500 Mg Tab) 500 mg PO DAILY COUNTS INCLUDE 234 BEDS AT THE [facility] Last Admin: 09/03/21 09:04 Dose: 500 mg Miscellaneous Information ([facility]neumonia [facility] 1 each PO ONCE PRN PRN Reason: Per Protocol Niacin (Niacin Tr 500 Mg Caplet) 500 mg PO DAILY COUNTS INCLUDE 234 BEDS AT THE [facility] Last Admin: 09/03/21 09:08 Dose: 500 mg Pantoprazole Sodium (Pantoprazole 40 Mg Tablet) 40 mg PO QAM COUNTS INCLUDE 234 BEDS AT THE [facility] Last Admin: 09/03/21 09:04 Dose: 40 mg Prednisolone Acetate (Prednisolone Acetate 1% Ophth Drops 5 Ml Btl) 1 drops LEFT EYE QID COUNTS INCLUDE 234 BEDS AT THE [facility] Last Admin: 09/03/21 21:35 Dose: Not Given PHYSICAL EXAMINATION: GENERAL: The patient is alert and oriented , Well developed, well nourished. HEENT: Pupils are round and equally reacting to light. EOMI. no scleral icterus. No conjunctival pallor. Normocephalic, atraumatic. No pharyngeal erythema. No thyromegaly. CARDIOVASCULAR: S1 and S2 muffled PULMONARY: diminished breath sounds bilaterally with no wheezing or rhonchi noted. ABDOMEN: soft. Nontender on exam. non-distended, normoactive bowel sounds. No palpable organomegaly. MUSCULOSKELETAL: No joint swelling or deformity. EXTREMITIES: No cyanosis, clubbing, or pedal edema. NEUROLOGICAL: Gross neurological examination did not reveal any focal deficits. Diffuse weakness SKIN: No rashes. Assessment: -Persistent fever off and on, for the past 2 months, unclear etiology possibly secondary to UTI -right kidney stone, with mild ureterohydronephrosis, 5 mm x 7 mm, status post stone extraction and right stent placement, by Dr. Mccarthy on 09/02/2021 -Hypertension -Diabetes mellitus type 2 -History of pyelonephritis -recent cataract surgery -history of BPH -Hyperlipidemia -COPD without exacerbation -GI prophylaxis -DVT prophylaxis -Full code Plan: Recommend to continue with current medications and management with urology and infectious disease following and is status post right ureter stent placement. Patient continues with dark urine and hematuria and will follow up on am labs. Patient is maintained on IV unasyn with ID following and urine culture has been sent and pending. Patient underwent cataract surgery with DR. Yobani Vega and will consult and appreciate input and recommendations. Patient was continued on eyedrops that have not yet been resumed and is concerned given that he is on broad spectrum abx. Chest xray shows scattered patchy densities and will also discontinue IV fluids for now. Blood sugars are rising and will recommend accuchecks achs and will add sliding scale and monitor closely. Recommend am labs. Due to multiple complex medical issues, prognosis is guarded. The impression and plan of care has been dictated by Loreto Roman, nurse pr actitioner as directed. MD Estrella I have performed a history and examination and MDM of this patient, discussed the same with the dictator, and agree with the dictator's assessment and plan as written ,documented as a scribe. Based on total visit time, I have performed more than 50% of the visit. Any additional findings or plans will be noted. Objective - Vital Signs Vital signs: Vital Signs Temp 97.8 F 09/03/21 07:00 Pulse 73 09/03/21 07:00 Resp 18 09/03/21 09:04 BP 124/67 09/03/21 07:00 Pulse Ox 97 09/03/21 07:00 FiO2 Intake & Output 09/02/21 09/03/21 09/03/21 18:59 06:59 18:59 Intake Total 700 118 Output Total 25 Balance 675 118 Intake: IV 500 Oral 200 118 Output: Urine 25 Other: Voiding Method Urinal Urinal Urinal Diaper Diaper Diaper # Voids 3 2 # Bowel Movements 1 - Labs CBC & Chem 7: 09/04/21 03:08 09/04/21 03:08 Labs: Abnormal Lab Results - Last 24 Hours (Table) 09/02/21 09/02/21 09/03/21 Range/Units 16:47 21:38 03:35 RBC 4.00 L (4.40-5.60) X 10*6/uL Hgb 12.3 L (13.0-17.0) g/dL Hct 38.5 L (39.6-50.0) % MCHC 31.9 L (32.0-37.0) g/dL Lymphocytes # 0.75 L (0.90-5.00) X 10*3/uL Eosinophils # 0 L (0.04-0.35) X 10*3/uL Anion Gap (10.00-18.00) mmol/L BUN (9.0-27.0) mg/dL BUN/Creatinine Ratio (12.00-20.00) Ratio Glucose (70-110) mg/dL POC Glucose (mg/dL) 116 H 141 H (70-110) mg/dL Calcium (8.7-10.3) mg/dL Total Bilirubin (0.30-1.20) mg/dL Total Protein (6.2-8.2) g/dL Albumin (3.8-4.9) g/dL Albumin/Globulin Ratio (1.60-3.17) g/dL 09/03/21 09/03/21 09/03/21 Range/Units 03:35 07:24 11:42 RBC (4.40-5.60) X 10*6/uL Hgb (13.0-17.0) g/dL Hct (39.6-50.0) % MCHC (32.0-37.0) g/dL Lymphocytes # (0.90-5.00) X 10*3/uL Eosinophils # (0.04-0.35) X 10*3/uL Anion Gap 8.80 L (10.00-18.00) mmol/L BUN 29.8 H (9.0-27.0) mg/dL BUN/Creatinine Ratio 27.09 H (12.00-20.00) Ratio Glucose 168 H (70-110) mg/dL POC Glucose (mg/dL) 179 H 224 H (70-110) mg/dL Calcium 8.6 L (8.7-10.3) mg/dL Total Bilirubin <0.15 L (0.30-1.20) mg/dL Total Protein 5.8 L (6.2-8.2) g/dL Albumin 3.4 L (3.8-4.9) g/dL Albumin/Globulin Ratio 1.42 L (1.60-3.17) g/dL Microbiology - Last 24 Hours (Table) 08/31/21 21:56 Blood Culture - Preliminary Blood No Growth after 48 hours
[2021-09-04] MEDS: AMPICILLIN-SULBACTAM 3 GM in SODIUM CHLORIDE 0.9% 100 ML IVPB SCH ×3 (05:55→21:07)
[2021-09-04 07:23] LABS: Glucose,Whole Blood 91 mg/dL (70-110)
--- NOTE | 2021-09-04 08:05 | P.CON ---
Consult Note - . Consult date: 09/04/21 Assessment/Plan:: This is an 81 y/o male now, 2 weeks post operative from left cataract surgery, and 4 weeks for the right. He has been doing well and without complaints, and was last seen in the office last week. He's been following the post operative p rotocol with topical medication treatment as planned. The question of this visit is to clarify drops for the eyes while hospitalized for peneumonia and ureteral lithiasis. The patient is denying any problems and feels the vision is improving. His spousal support is conflating personal usage of the drops at home to reduce confusion versus what is medically necessary. Va: w/o correction 20/20 OD, 20/25 OS Ext: normal, white and quiet Cornea: clear AC: clear Iris: w/o pathology Vitreous: clear OD, asteroid hyalosis OS Posterior pole: normal/quiet OU A: normal post operative course for both intraocular implants of each eye within the last month. P: return to office for routine post operative care, approximately 1 month from now - already scheduled. With respect to the drops, all topical medications for the eyes may be refrigerated, however, there is no mandatory reason except for personal preference that they may be. Normal daily usage does not require any particular handling, and should be done in compliance with typical hospital protocol.
[2021-09-04] MEDS: INSULIN ASPART (NovoLOG) 100 UNIT/ML VIAL SQ SCH ×4 (08:19→21:07)
--- NOTE | 2021-09-04 09:09 | P.PN ---
Progress Note - Text Progress Note Date: 09/04/21 Mr. Lira is experiencing intermittent hematuria. I reassured him that this is expected in patients with ureteral stents. He denies discomfort. Blood culture was negative. The urine culture is pending. He is currently receiving Unasyn for pneumonia. He is to be discharged home on appropriate antibiotics and follow up with me in 1 week. Once he is medically stable, arrangements will be made for him to undergo elective cystoscopy, right ureteral stent removal, right ureteroscopy with laser lithotripsy and possible stone basketing.
[2021-09-04] MEDS: NIACIN TR 500 MG CAPLET PO SCH (09:14)
[2021-09-04] MEDS: metFORMIN 500 MG TAB PO SCH (09:14)
[2021-09-04] MEDS: ENOXAPARIN 40 MG/0.4 ML SYRINGE SQ SCH (09:14)
[2021-09-04] MEDS: glipiZIDE 5 MG TAB PO SCH (09:14)
[2021-09-04] MEDS: ATORVASTATIN 10 MG TAB PO SCH (09:14)
[2021-09-04] MEDS: amLODIPine 10 MG TAB PO SCH (09:14)
[2021-09-04] MEDS: PANTOPRAZOLE 40 MG TABLET PO SCH (09:15)
[2021-09-04] MEDS: ASPIRIN 325 MG TAB PO SCH (09:15)
[2021-09-04] MEDS: lisinopriL 5 MG TAB PO SCH (09:15)
[2021-09-04] MEDS: KETOROLAC 0.5% OPHTH DROPS 5 ML BTL LEFT EYE SCH ×2 (10:23→21:07)
[2021-09-04] MEDS: prednisoLONE ACETATE 1% OPHTH DROPS 5 ML BTL LEFT EYE SCH ×4 (10:23→22:21)
[2021-09-04 11:53] LABS: Glucose,Whole Blood 102 mg/dL (70-110)
[2021-09-04] MEDS: HYDROcodone/APAP 7.5-325MG 1 EACH TAB PO PRN ×2 (13:26→22:17)
--- NOTE | 2021-09-04 15:27 | P.PN ---
Subjective Progress Note Date: 09/04/21 This is an 81-year-old gentleman, known history of hypertension, aortic valve surgery, recent cataract, in July 2021, bilaterally done, who apparently was seen in emergency room, secondary to fever. Upon questioning the , fevers been going on off and on for the past 2 months, he sees Dr. Aleja Chan, has minimal cough, there is no neck pain, patient has headache, patient denies any back pain, abdominal pain, that is localized to a particular organ, per the , the patient only has off one lung that is working, as a result of previous injury, left lung in the past. In the emergency room rule out urinalysis essentially negative, WBCs 8, chest x- ray shows basilar atelectasis, left side, with elevation of left hemidiaphragm, coarsening of lung markings of obesity count of 8.4, creatinine of 1.17, liver function test is normal lactic acid is normal, and pro-calcitonin level is normal, liver function test is normal. Coronavirus PCR negative, influenza A and B- 09/02: Patient is seen by infectious disease, antibiotic IV Unasyn based on CAT scan of the abdomen and pelvis, revealed a small nobstructing kidney stone, 5x7 mm, right side. ureterohydronephrosis moderate hiatal hernia, right patchy lobe airspace disease in the present aspiration, no evidence of malignancy, liver, bladder looks okay echocardiogram is still pending patient scheduled for cystoscopy, and placement of right parasternal stent insertion, by Dr. Mccarthy urine culture pending blood culture pending 09/03/2021 Patient is seen in follow up today and at the bedside. Multiple medical consultations following including infectious disease and opthalmology. Patient recently had some cataract surgery 6 weeks ago and continues on eye drops and is concerned as these drops have not been resumed and was told to continue until follow up appointment. Will consult Dr. Yobani Vega and appreciate input and recommendations. Patient is continued on IV antibiotics with urology following. Patient is status post right ureteral stent placement and continues with hematuria noted in the urinal. Awaiting urine cultures. Hemoglogin is stable and recommend repeat am labs. Will also initiate accuchecks achs and co ntinue sliding scale. Patient is afebrile and denies chest pain or palpitations. Patient is currently on 2L of 02 via NC and denies shortness of breath. Will order chest xray. 09/04/2021 Patient is seen today with at the bedside. Patient has been evaluated by Dr. Vega and eyedrops have been resumed. is quite concerned as patient continues to have hematuria although is improving. Patient being followed by urology along with infectious disease and is maintained on empiric antibiotics in the form of Unasyn and awaiting for cultures to finalized. Urine culture is pending and blood cultures remain negative. IV fluids have been discontinued and encourage incentive spirometer use at least 10 times every hour while awake. Encourage the patient increase activity as tolerated. Will follow-up with repeat labs and also chest x-ray in the a.m. Patient is continued on 2 L via nasal cannula and maintaining oxygen saturations of 97% and does not wear oxygen the outpatient setting. Recommend weaning FiO2 as tolerated. Patient is currently afebrile and denies shortness of breath or chest pains. Patient is tolerating diet and will continue with consistent carb diet as patient does have diabetes and recommend Accu-Cheks before meals and at bedtime using sliding scale as needed. Review of systems: Constitutional: No reports of fatigue, fever, or chills Cardiovascular: No reports of chest pain or palpitations Respiratory: No reports of shortness of breath or cough GI: no reports of nausea, no reports of of vomiting : No reports of dysuria or retention Neurovascular: reports of generalized weakness All medications have been reviewed Active Medications Acetaminophen (Acetaminophen Tab 325 Mg Tab) 650 mg PO Q4HR PRN PRN Reason: Fever and/ or Pain Last Admin: 09/01/21 14:36 Dose: 650 mg Hydrocodone Bitart/Acetaminophen (Hydrocodone/Apap 7.5-325mg 1 Each Tab) 1 each PO Q4H PRN PRN Reason: Pain Last Admin: 09/04/21 13:26 Dose: 1 each Amlodipine Besylate (Amlodipine 10 Mg Tab) 10 mg PO QAM [facility] Last Admin: 09/04/21 09:14 Dose: 10 mg Artificial Tears (Artificial Tears-Hypromellose Drops 15 Ml Btl) 1 drops BOTH EYES QID PRN PRN Reason: Dry Eye(s) Aspirin (Aspirin 325 Mg Tab) 325 mg PO DAILY [facility] Last Admin: 09/04/21 09:15 Dose: 325 mg Atorvastatin Calcium (Atorvastatin 10 Mg Tab) 10 mg PO DAILY [facility] Last Admin: 09/04/21 09:14 Dose: 10 mg Enoxaparin Sodium (Enoxaparin 40 Mg/0.4 Ml Syringe) 40 mg SQ DAILY [facility] Last Admin: 09/04/21 09:14 Dose: 40 mg Glipizide (Glipizide 5 Mg Tab) 5 mg PO DAILY [facility] Last Admin: 09/04/21 09:14 Dose: 5 mg Ampicillin Sodium/Sulbactam (Sodium 3 gm/ Sodium Chloride) 100 mls @ 200 mls/hr IVPB Q8H [facility]; Protocol Last Admin: 09/04/21 13:19 Dose: 200 mls/hr Insulin Aspart (Insulin Aspart (Novolog) 100 Unit/Ml Vial) 0 unit SQ ACHS [facility]; Protocol Last Admin: 09/04/21 12:37 Dose: Not Given Ketorolac Tromethamine (Ketorolac 0.5% Ophth Drops 5 Ml Btl) 1 drops LEFT EYE BID [facility] Stop: 09/06/21 23:59 Last Admin: 09/04/21 10:23 Dose: 1 drops Lisinopril (Lisinopril 5 Mg Tab) 5 mg PO QAM [facility] Last Admin: 09/04/21 09:15 Dose: 5 mg Metformin HCl (Metformin 500 Mg Tab) 500 mg PO DAILY [facility] Last Admin: 09/04/21 09:14 Dose: 500 mg Miscellaneous Information (Pneumonia Protocol Utilized 1 Each Misc) 1 each PO ONCE PRN PRN Reason: Per Protocol Niacin (Niacin Tr 500 Mg Caplet) 500 mg PO DAILY [facility] Last Admin: 09/04/21 09:14 Dose: 500 mg Pantoprazole Sodium (Pantoprazole 40 Mg Tablet) 40 mg PO QAM [facility] Last Admin: 09/04/21 09:15 Dose: 40 mg Prednisolone Acetate (Prednisolone Acetate 1% Ophth Drops 5 Ml Btl) 1 drops LEFT EYE QID [facility] Last Admin: 09/04/21 13:23 Dose: 1 drops PHYSICAL EXAMINATION: GENERAL: The patient is alert and oriented , Well developed, well nourished. HEENT: Pupils are round and equally reacting to light. EOMI. no scleral icterus. No conjunctival pallor. Normocephalic, atraumatic. No pharyngeal erythema. No thyromegaly. CARDIOVASCULAR: S1 and S2 muffled PULMONARY: diminished breath sounds bilaterally with no wheezing or rhonchi noted. ABDOMEN: soft. Nontender on exam. non-distended, normoactive bowel sounds. No palpable organomegaly. MUSCULOSKELETAL: No joint swelling or deformity. EXTREMITIES: No cyanosis, clubbing, or pedal edema. NEUROLOGICAL: Gross neurological examination did not reveal any focal deficits. Diffuse weakness SKIN: No rashes. Assessment: -Persistent fever off and on, for the past 2 months, unclear etiology possibly secondary to UTI -right kidney stone, with mild ureterohydronephrosis, 5 mm x 7 mm, status post stone extraction and right stent placement, by Dr. Mccarthy on 09/02/2021 -Hypertension -Diabetes mellitus type 2 -History of pyelonephritis -recent cataract surgery -history of BPH -Hyperlipidemia -COPD without exacerbation -GI prophylaxis -DVT prophylaxis -Full code Plan: Recommend to continue with current medications and management with urology and infectious disease following and is status post right ureter stent placement. Patient urine is clearing and hemoglobin is stable at 12.1. White blood count remains within normal limits at 7.9. BMP reviewed and within normal limits. Patient currently maintained on 2 L via nasal cannula and does not normally wear any oxygen in the outpatient setting and encouraged weaning FiO2 as tolerated. Incentive spirometer ordered and will encouraged to use at least 10 times every hour while awake. Recommend repeat labs and follow-up chest x-ray in the morning. Patient is currently continued on Unasyn and awaiting for urine cultures are finalized. Urology would like outpatient follow-up within the next week once stabilized and discharged. Will await finalized urine cultures to determine discharge antibiotics and discuss with infectious disease about this. Encouraged increase activity as tolerated. Due to multiple convex medical issues, prognosis is guarded. The impression and plan of care has been dictated by Loreto Roman nurse practitioner as directed. MD Estrella I have performed a history and examination and MDM of this patient, discussed the same with the dictator, and agree with the dictator's assessment and plan as written ,documented as a scribe. Based on total visit time, I have performed more than 50% of the visit. Any additional findings or plans will be noted. Objective - Vital Signs Vital signs: Vital Signs Temp 97.5 F L 09/04/21 14:00 Pulse 80 09/04/21 14:00 Resp 18 09/04/21 14:00 BP 132/71 09/04/21 14:00 Pulse Ox 97 09/04/21 14:00 FiO2 Intake & Output 09/03/21 09/04/21 09/04/21 18:59 06:59 18:59 Intake Total 598 118 Output Total 700 Balance 598 -700 118 Intake: Oral 598 118 Output: Urine 700 Other: Voiding Method Urinal Urinal Urinal Diaper Diaper # Voids 2 3 # Bowel Movements 1 - Labs CBC & Chem 7: 09/04/21 03:08 09/04/21 03:08 Labs: Abnormal Lab Results - Last 24 Hours (Table) 09/03/21 09/03/21 09/03/21 Range/Units 13:20 17:14 20:35 RBC (4.30-5.90) m/uL Hgb (13.0-17.5) gm/dL Hct (39.0-53.0) % Chloride (98-107) mmol/L BUN (9-20) mg/dL POC Glucose (mg/dL) 115 H 112 H (70-110) mg/dL Calcium (8.4-10.2) mg/dL Urine Protein 2+ H (Negative) Urine Glucose (UA) Trace H (Negative) Urine Ketones Trace H (Negative) Urine Blood Large H (Negative) Ur Leukocyte Esterase Moderate H (Negative) Urine RBC >182 H (0-5) /hpf Urine WBC 52 H (0-5) /hpf Urine Bacteria Occasional H (None) /hpf Urine Mucus Rare H (None) /hpf Urine Yeast (Budding) Few H (None) /hpf 09/04/21 09/04/21 Range/Units 03:08 03:08 RBC 3.85 L (4.30-5.90) m/uL Hgb 12.1 L (13.0-17.5) gm/dL Hct 37.4 L (39.0-53.0) % Chloride 110 H (98-107) mmol/L BUN 26 H (9-20) mg/dL POC Glucose (mg/dL) (70-110) mg/dL Calcium 8.3 L (8.4-10.2) mg/dL Urine Protein (Negative) Urine Glucose (UA) (Negative) Urine Ketones (Negative) Urine Blood (Negative) Ur Leukocyte Esterase (Negative) Urine RBC (0-5) /hpf Urine WBC (0-5) /hpf Urine Bacteria (None) /hpf Urine Mucus (None) /hpf Urine Yeast (Budding) (None) /hpf Microbiology - Last 24 Hours (Table) 08/31/21 21:56 Blood Culture - Preliminary Blood No Growth after 72 hours 09/03/21 13:20 Urine Culture - Preliminary Urine,Voided
[2021-09-04 17:18] LABS: Glucose,Whole Blood 89 mg/dL (70-110)
[2021-09-04 21:07] LABS: Glucose,Whole Blood 101 mg/dL (70-110)
--- NOTE | 2021-09-04 22:38 | P.PN ---
Subjective Progress Note Date: 09/04/21 Principal diagnosis: Complicated UTI and possible aspiration pneumonia Patient is 81-year-old male with multiple comorbidities presenting to the hospital with off and on fever for the last 2 months weakness and decreased oral intake patient did have a CT of abdominal pelvis with evidence of right- sided hydronephrosis in this patient who is status post cystoscopy and right- sided ureteral stent placement by urology on 09/02/2021. CT also showed possible right lower lobe pneumonia On today's evaluation that is 09/04/2021, the patient remains to be afebrile, patient denies chest pain, breathing comfortably patient denies any worsening, sputum production no abdominal pain and no diarrhea Objective - Vital Signs Vital signs: Vital Signs Temp 97.8 F 09/04/21 08:00 Pulse 82 09/04/21 08:00 Resp 16 09/04/21 08:00 BP 152/75 09/04/21 08:00 Pulse Ox 97 09/04/21 08:00 FiO2 Intake & Output 09/03/21 09/04/21 09/04/21 18:59 06:59 18:59 Intake Total 598 118 Output Total 700 Balance 598 -700 118 Intake: Oral 598 118 Output: Urine 700 Other: Voiding Method Urinal Urinal Urinal Diaper Diaper # Voids 2 3 # Bowel Movements 1 - Exam GENERAL DESCRIPTION: An elderly male lying in bed in no distress RESPIRATORY SYSTEM: Unlabored breathing , decreased breath sounds at bases HEART: S1 S2 regular rate and rhythm , ABDOMEN: Soft , no tenderness EXTREMITIES: No edema feet - Labs CBC & Chem 7: 09/04/21 03:08 09/04/21 03:08 Labs: Abnormal Lab Results - Last 24 Hours (Table) 09/03/21 09/03/21 09/03/21 Range/Units 11:42 13:20 17:14 RBC (4.30-5.90) m/uL Hgb (13.0-17.5) gm/dL Hct (39.0-53.0) % Chloride (98-107) mmol/L BUN (9-20) mg/dL POC Glucose (mg/dL) 224 H 115 H (70-110) mg/dL Calcium (8.4-10.2) mg/dL Urine Protein 2+ H (Negative) Urine Glucose (UA) Trace H (Negative) Urine Ketones Trace H (Negative) Urine Blood Large H (Negative) Ur Leukocyte Esterase Moderate H (Negative) Urine RBC >182 H (0-5) /hpf Urine WBC 52 H (0-5) /hpf Urine Bacteria Occasional H (None) /hpf Urine Mucus Rare H (None) /hpf Urine Yeast (Budding) Few H (None) /hpf 09/03/21 09/04/21 09/04/21 Range/Units 20:35 03:08 03:08 RBC 3.85 L (4.30-5.90) m/uL Hgb 12.1 L (13.0-17.5) gm/dL Hct 37.4 L (39.0-53.0) % Chloride 110 H (98-107) mmol/L BUN 26 H (9-20) mg/dL POC Glucose (mg/dL) 112 H (70-110) mg/dL Calcium 8.3 L (8.4-10.2) mg/dL Urine Protein (Negative) Urine Glucose (UA) (Negative) Urine Ketones (Negative) Urine Blood (Negative) Ur Leukocyte Esterase (Negative) Urine RBC (0-5) /hpf Urine WBC (0-5) /hpf Urine Bacteria (None) /hpf Urine Mucus (None) /hpf Urine Yeast (Budding) (None) /hpf Microbiology - Last 24 Hours (Table) 08/31/21 21:56 Blood Culture - Preliminary Blood No Growth after 72 hours 09/03/21 13:20 Urine Culture - Preliminary Urine,Voided Assessment and Plan (1) Fever Current Visit: Yes Status: Acute Code(s): R50.9 - FEVER, UNSPECIFIED SNOMED Code(s): 065518865 Plan: 1patient presented to hospital with sepsis in this patient did have a fever tachycardia source is likely a combination of the complicated UTI as the patient did have evidence of mild hydronephrosis and hydroureter plus minus aspiration pneumonitis and there is evidence of right lower lobe pneumonia on the CT. 2patient is status post cystoscopy and right ureteral stent placement, repeat UA slightly positive cultures are pending 3patient seemed to have shown clinical improvement fever has resolved. Continue the patient on Unasyn while waiting for a repeat urine cultures to finalize Time with Patient: Less than 30
[2021-09-05 05:11] LABS: Basophils % (A) 0 %; Eosinophils # (A) 0.2 k/uL (0-0.7); Eosinophils % (A) 3 %; HCT 38.4 % (39.0-53.0); HGB 12.2 gm/dL (13.0-17.5); Lymphocytes # (A) 1.3 k/uL (1.0-4.8); Lymphocytes % (A) 19 %; MCH 30.5 pg (25.0-35.0); MCHC 31.7 g/dL (31.0-37.0); Mean Platelet Volume 7.5; Monocytes # (A) 0.7 k/uL (0-1.0); Monocytes % (A) 10 %; Neutrophils # (A) 4.5 k/uL (1.3-7.7); Neutrophils % (A) 65 %; Platelet Count 187 k/uL (150-450); RDW 12.3 % (11.5-15.5); WBC 6.8 k/uL (3.8-10.6)
[2021-09-05] MEDS: AMPICILLIN-SULBACTAM 3 GM in SODIUM CHLORIDE 0.9% 100 ML IVPB SCH (05:20)
[2021-09-05 05:36] LABS: African American GFR (CKD) >90 (>60 ml/min/1.73 sqM); Anion Gap 5 mmol/L; Blood Urea Nitrogen 15 mg/dL (9-20); Calcium 8.4 mg/dL (8.4-10.2); Carbon Dioxide 26 mmol/L (22-30); Chloride 109 mmol/L (98-107); Glucose 82 mg/dL (74-99); Non-African American GFR(CKD) 79 (>60 ml/min/1.73 sqM); Potassium 4.2 mmol/L (3.5-5.1); Sodium 140 mmol/L (137-145)
[2021-09-05 07:10] LABS: Glucose,Whole Blood 85 mg/dL (70-110)
[2021-09-05 07:19] VITALS: BP 179/79; RESP 17; TEMP 97.8
[2021-09-05] MEDS: ENOXAPARIN 40 MG/0.4 ML SYRINGE SQ SCH (08:02)
[2021-09-05] MEDS: NIACIN TR 500 MG CAPLET PO SCH (08:02)
[2021-09-05] MEDS: ATORVASTATIN 10 MG TAB PO SCH (08:02)
[2021-09-05] MEDS: glipiZIDE 5 MG TAB PO SCH (08:02)
[2021-09-05] MEDS: metFORMIN 500 MG TAB PO SCH (08:02)
[2021-09-05] MEDS: amLODIPine 10 MG TAB PO SCH (08:02)
[2021-09-05] MEDS: PANTOPRAZOLE 40 MG TABLET PO SCH (08:02)
[2021-09-05] MEDS: ASPIRIN 325 MG TAB PO SCH (08:02)
[2021-09-05] MEDS: lisinopriL 5 MG TAB PO SCH (08:02)
[2021-09-05] MEDS: prednisoLONE ACETATE 1% OPHTH DROPS 5 ML BTL LEFT EYE SCH ×2 (08:03→12:16)
[2021-09-05] MEDS: INSULIN ASPART (NovoLOG) 100 UNIT/ML VIAL SQ SCH ×2 (08:03→13:35)
[2021-09-05] MEDS: KETOROLAC 0.5% OPHTH DROPS 5 ML BTL LEFT EYE SCH ×2 (08:03→12:16)
--- NOTE | 2021-09-05 08:03 | XR ---
EXAMINATION TYPE: XR chest 1V portable DATE OF EXAM: 09/05/2021 6:53 AM COMPARISON: Chest radiographs from 09/03/2021, CT head and pelvis 09/01/2021. TECHNIQUE: XR chest 1V portable Frontal view of the chest. CLINICAL INDICATION:Male, 81 years old with history of shortness of breath; FINDINGS: Similar scattered interstitial densities. No pneumothorax or pleural effusions. Patchy left basilar o pacities unchanged. Asymmetric elevation left hemidiaphragm redemonstrated. Known underlying moderate to large hiatal hernia. Cardiomegaly is also is partially obscured. No acute osseous abnormality. IMPRESSION: * Overall unchanged examination with scattered interstitial densities as well as patchy left basilar opacity. Correlate to exclude pneumonia or atypical pneumonias. * Known moderate to large lateral hernia. * Continued asymmetric elevation left hemidiaphragm.
[2021-09-05 09:10] VITALS: PULSE 100
--- NOTE | 2021-09-05 09:24 | CDI ---
Documentation Clarification Form Date: 09/05/2021 09:06:32 AM From: Iram CamiloFABI mccord, CCDS Admit Date: 09/03/2021 10:49:00 AM Patient Name: Waqas Lira Visit Number: [id number] Discharge Date: ATTENTION: The Clinical Documentation Specialists (CDI) and [facility] Coding Staff appreciate your assistance in clarifying documentation. Please respond to the clarification below the line at the bottom and electronically sign. The CDI & [facility] Coding staff will review the response and follow-up if needed. Please note: Queries are made part of the Legal Health Record. If you have any questions, please contact the author of this message via ITS. Dr. Viviana Sanchez: The patient presented with the following clinical indicators: Fever x3 days, cough, tachycardia and chills. Additional clarification regarding the etiology/cause of the clinical indicators is requested. History/Risk Factors per the 09/01 H/P: Asthma, DM, GERD, Hyperlipidemia, Hypertension, Osteoarthritis, Sleep Apnea, History of bleeding stomach ulcer, Left lung removed and Former smoker. Clinical Indicators: Presented to the ED on 08/31 VIA EMS from home with Fever, cough, chills, myalgias. Admit with Fever. 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 Per the 09/01 Infectious Disease Consult: Patient presented with Sepsis with fever and tachycardia source is likely a combination of the complicated UTI with evidence of mild hydronephrosis and hydroureter plus minus aspiration pneumonitis with evidence of right lower lobe pneumonia on CT. 08/31 VS: T 99.8, P 106, R 18, BP 134/98, PO 95 RA 09/01 VS: T 102.6, P 88, 122; R 18, 29; BP 162/84, 149/84; PO 97 RA, 96 4Lnc 08/31 LAB: WBC 8.4, Neutrophils 6.9, Lymphocytes 0.5; Na 133, Chl 96, BUN 26, Cr 1.17, glucose 280. 08/31 UA: Clear, Trace Protein, 3+ Glucose, Trace Esterase, WBC 8. 08/31 Blood culture: Preliminary: No growth @ 96 hrs. 09/01 LAB: ESR 30, CRP 8.3, Procalcitonin 1.09 09/03 Urine culture: Final: Negative. Treatment 08/31: IV Rocephin 2 gm: 50 mls @ 100 mls/hr x1 09/01: IV Na Chl 1,000 mls @ 130 mls/hr q7H, IV Zofran 4 mg x1, Lovenox 30 mg sq Daily, IV Ampicillin 100 mls @ 200 mls/hr q6H, IV Rocephin 2 gm: 50 mls @ 100 mls/hr q24H. In your professional opinion, please clarify if these findings signify one of the following conditions: [ ] Sepsis POA [ ] Sepsis, Not POA [ ] Sepsis ruled out [ ] Other, please specify [ ] Unable to determine (Template Last Reviewed: March 2020) Sepsis POA MTDD
--- NOTE | 2021-09-05 09:38 | CDI ---
Documentation Clarification Form Date: 09/05/2021 09:25:00 AM From: Iram CamiloFABI mccord, CCDS Admit Date: 09/03/2021 10:49:00 AM Patient Name: Waqas Lira Visit Number: [id number] Discharge Date: ATTENTION: The Clinical Documentation Specialists (CDI) and [facility] Coding Staff appreciate your assistance in clarifying documentation. Please respond to the clarification below the line at the bottom and electronically sign. The CDI & [facility] Coding staff will review the response and follow-up if needed. Please note: Queries are made part of the Legal Health Record. If you have any questions, please contact the author of this message via ITS. Dr. Viviana Sanchez: Per the 09/01 Infectious Disease Consult and subsequent Progress Notes: Patient presented with Sepsis with fever and tachycardia, source is likely a combination of the complicated UTI with evidence of mild Hydronephrosis and Hydroureter plus minus aspiration pneumonitis and evidence of right lower lobe pneumonia on the CT Chest. Per the 09/04 Attending Medication List: Pneumonia Protocol Utilized. Per the 09/04 Urology Progress Note: The patient is receiving Unasyn for Pneumonia. Additional clarification regarding the type of pneumonia is requested. History/Risk Factors per the 09/01 H/P: Asthma, DM, GERD, Hyperlipidemia, Hypertension, Osteoarthritis, Sleep Apnea, History of bleeding stomach ulcer, Left lung removed and Former smoker. Clinical Indicators: Presented to the ED on 08/31 VIA EMS from home with Fever, cough, chills, myalgias. Admit with Fever. 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 Per the 09/01 Infectious Disease Consult: Patient presented with Sepsis with fever and tachycardia source is likely a combination of the complicated UTI with evidence of mild hydronephrosis and hydroureter plus minus aspiration pneumonitis with evidence of right lower lobe pneumonia on CT Abdomen/Pelvis. 08/31 VS: T 99.8, P 106, R 18, BP 134/98, PO 95 RA 09/01 VS: T 102.6, P 88, 122; R 18, 29; BP 162/84, 149/84; PO 97 RA, 96 4Lnc 08/31 LAB: WBC 8.4, Neutrophils 6.9, Lymphocytes 0.5; Na 133, Chl 96, BUN 26, Cr 1.17, glucose 280. 08/31 UA: Clear, Trace Protein, 3+ Glucose, Trace Esterase, WBC 8. 08/31 Blood culture: Preliminary: No growth @ 96 hrs. 08/31 CXR: Cardiomegaly. Left basilar atelectasis. No obvious heart failure. 09/01 CT Abd/Pelvis: Right lower lobe patchy airspace opacities which may represent aspiration. 09/03 CXR: Correlate to exclude pneumonia or atypical pneumonias. 09/05 CXR: Unchanged with scattered interstitial denies as well as patchy left basilar opacity. Correlate to exclude pneumonia or atypical pneumonia. Treatment 08/31: IV Rocephin 2 gm: 50 mls @ 100 mls/hr x1. 09/01: O2 4Lnc, IV Na Chl 1,000 mls @ 130 mls/hr q7H, IV Zofran 4 mg x1, Lovenox 30 mg sq Daily, IV Ampicillin 100 mls @ 200 mls/hr q6H, IV Rocephin 2 gm: 50 mls @ 100 mls/hr q24H. Please clarify the type of Pneumonia, if known: [ ] Aspiration Pneumonia, Due to food or vomitus [ ] Viral Pneumonia, specify casual organism (if known): [ ] Other Pneumonia, please specify: [ ] Pneumonia is ruled out [ ] Other, please specify: [ ] Unable to determine (Template Last Revised: April 2020) Aspiration Pneumonia, Due to food or vomitus MTDD
[2021-09-05] MEDS ORDERED: AMPICILLIN-SULBACTAM 3 GM in SODIUM CHLORIDE 0.9% 100 ML IVPB SCH (12:00)
[2021-09-05 12:36] LABS: Glucose,Whole Blood 73 mg/dL (70-110)
--- NOTE | 2021-09-06 14:39 | P.DS ---
Providers Date of admission: 09/03/21 10:49 Expected date of discharge: 09/05/21 Attending physician: Prabhakar Ramirez Consults: 09/01/21 12:00 Consult Physician Routine Consulting Provider: Lucas Conley Consult Reason/Comments: FEVER OVER 2 MOS Do you want consulting provider notified?: Yes 09/01/21 16:58 Consult Physician Routine Consulting Provider: Waqas Champion Consult Reason/Comments: Hydronephrosis Do you want consulting provider notified?: Yes 09/03/21 12:35 Consult Physician Urgent Consulting Provider: Yobani Vega Consult Reason/Comments: recent eye surgery, on eye drops Do you want consulting provider notified?: Yes Primary care physician: Marcus Chan Hospital Course: Final diagnosis -Aspiration pneumonia due to food or vomitus -Sepsis, present on admission -Persistent fever off and on, for the past 2 months, unclear etiology possibly secondary to UTI -right kidney stone, with mild ureterohydronephrosis, 5 mm x 7 mm, status post stone extraction and right stent placement, by Dr. Mccarthy on 09/02/2021 -Hypertension -Diabetes mellitus type 2 -History of pyelonephritis -recent cataract surgery -history of BPH -Hyperlipidemia -COPD without exacerbation -GI prophylaxis -DVT prophylaxis -Full code Discharge disposition Patient is being discharged in a stable condition with guarded prognosis to home with home care. Patient will follow-up with Dr. Ramirez in the outpatient setting upon discharge. Patient is to continue with oral Augmentin twice daily for the next 10 days. Patient is to follow-up with urology and his production clerk Dr. PADDY Chan as scheduled. Total time taken is greater than 35 minutes. Hospital course This is a 81-year-old male who was recently admitted with fevers along with cough requiring some supplemental oxygen and does not normally wear oxygen in the outpatient setting. Patient was maintained on IV antibiotics with infectious disease following closely and patient also had a CT of the abdomen and pelvis which showed a small nonobstructing kidney stone with some right side hydronephrosis and was seen by urology and underwent right stent placement. Patient most likely having some possible aspiration pneumonia and cultures have been negative and will continue on oral Augmentin twice daily for the next 10 days. Patient recently underwent cataract surgery with Dr. Vega and was evaluated during hospitalization and encouraged to resume eyedrops and follow-up in the outpatient setting as scheduled. Currently no reports of chest pain, shortness of breath, or palpitations. Patient is afebrile. No reports of nausea or vomiting and patient is tolerating diet. Patient will be discharged home today with guarded prognosis. Patient will continue with home care in the outpatient setting. Physical exam: Gen: This is a 81-year-old male awake, alert and oriented 3, well-developed, well-nourished. HEENT: Head is atraumatic, normocephalic. Pupils equal, round. Sclerae is anicteric. NECK: Supple. No JVD. No lymphadenopathy. No thyromegaly. LUNGS: Clear to auscultation. No wheezes or rhonchi. No intercostal retractions. HEART: Regular rate and rhythm. No murmur. ABDOMEN: Soft. Bowel sounds are present. No masses. No tenderness. EXTREMITIES: No pedal edema. No calf tenderness. NEUROLOGICAL: Patient is awake, alert and oriented x3. Cranial nerves 2 through 12 are grossly intact. Please refer to medication reconciliation sheet for a list of medications. The impression and plan of care has been dictated by Loreto Roman, Nurse Practitioner as directed. Dr. Shannon MD I have performed a history and examination and MDM of this patient, discussed the same with the dictator, and agree with the dictator's assessment and plan as written ,documented as a scribe. Based on total visit time, I have performed more than 50% of the visit. Patient Condition at Discharge: Good Plan - Discharge Summary Discharge Rx Participant: Yes New Discharge Prescriptions: New Ketorolac 0.5% Ophth Soln [Acular 0.5%] 1 drops LEFT EYE BID ml Amoxic-Pot Clav 875-125Mg [Augmentin 875-125] 1 tab PO Q12HR 10 Days #20 tab Acetaminophen Tab [Tylenol] 650 mg PO Q4HR PRN tab PRN Reason: Fever And/ Or Pain Continue Enalapril Maleate 5 mg PO DAILY glyBURIDE/METFORMIN HCL [Glucovance 5-500 mg] 1 tab PO DAILY [place]-3/Dha/Epa/Fish Oil [Fish Oil 1,000 mg Softgel] 1 cap PO DAILY Lecithin, Soy [Lecithin] 1,200 mg PO DAILY Zinc 50 mg PO DAILY Aspirin EC [Ecotrin] 325 mg PO DAILY amLODIPine [Norvasc] 10 mg PO DAILY HYDROcodone/APAP 7.5-325MG [[place] 7.5-325] 1 tab PO QID PRN PRN Reason: Pain Omeprazole Magnesium [PriLOSEC OTC] 20 mg PO DAILY flaxseed oiL [[place]-3 Flaxseed Oil] 1,000 mg PO DAILY Vitamin B Complex 1 cap PO BID Calcium/D3/Zinc/Copper/Chastity [Citracal-D3 Maximum Plus Caplt] 1 tab PO DAILY Ubidecarenone [Co Q-10] 100 mg PO DAILY Niacin 500 mg PO DAILY Multivit-Min/FA/Lycopen/Lutein [Centrum Silver Tablet] 1 tab PO DAILY Simvastatin [Zocor] 20 mg PO DAILY glyBURIDE/METFORMIN HCL [Glucovance 5-500 mg] 0.25 - 0.5 tab PO DAILY PRN PRN Reason: elevated blood sugar Prednisolone Acetate/Pf [Prednisolone Acet 1% Eye Drop] 1 drop RIGHT EYE QID Discharge Medication List Aspirin EC [Ecotrin] 325 mg PO DAILY 07/31/21 [History] Calcium/D3/Zinc/Copper/Chastity [Citracal-D3 Maximum Plus Caplt] 1 tab PO DAILY 07/31/21 [History] Enalapril Maleate 5 mg PO DAILY 07/31/21 [History] HYDROcodone/APAP 7.5-325MG [[place] 7.5-325] 1 tab PO QID PRN 07/31/21 [History] Lecithin, Soy [Lecithin] 1,200 mg PO DAILY 07/31/21 [History] Multivit-Min/FA/Lycopen/Lutein [Centrum Silver Tablet] 1 tab PO DAILY 07/31/21 [History] Niacin 500 mg PO DAILY 07/31/21 [History] [place]-3/Dha/Epa/Fish Oil [Fish Oil 1,000 mg Softgel] 1 cap PO DAILY 07/31/21 [History] Omeprazole Magnesium [PriLOSEC OTC] 20 mg PO DAILY 07/31/21 [History] Ubidecarenone [Co Q-10] 100 mg PO DAILY 07/31/21 [History] Vitamin B Complex 1 cap PO BID 07/31/21 [History] Zinc 50 mg PO DAILY 07/31/21 [History] amLODIPine [Norvasc] 10 mg PO DAILY 07/31/21 [History] flaxseed oiL [[place]-3 Flaxseed Oil] 1,000 mg PO DAILY 07/31/21 [History] glyBURIDE/METFORMIN HCL [Glucovance 5-500 mg] 1 tab PO DAILY 07/31/21 [History] Simvastatin [Zocor] 20 mg PO DAILY 08/20/21 [History] glyBURIDE/METFORMIN HCL [Glucovance 5-500 mg] 0.25 - 0.5 tab PO DAILY PRN 08/20/21 [History] Prednisolone Acetate/Pf [Prednisolone Acet 1% Eye Drop] 1 drop RIGHT EYE QID 09/01/21 [History] Acetaminophen Tab [Tylenol] 650 mg PO Q4HR PRN tab 09/05/21 [Rx] Amoxic-Pot Clav 875-125Mg [Augmentin 875-125] 1 tab PO Q12HR 10 Days #20 tab 09/05/21 [Rx] Ketorolac 0.5% Ophth Soln [Acular 0.5%] 1 drops LEFT EYE BID ml 09/05/21 [Rx] Follow up Appointment(s)/Referral(s): [facility], [NON-STAFF] - 1-2 Days Colt Mccarthy MD [STAFF PHYSICIAN] - 09/11/21 11:40 am Prabhakar Ramirez MD [Medical Doctor] - 1 Week Marcus Chan MD [Primary Care Provider] - 1-2 days Patient Instructions/Handouts: *Surgery [facility] - Cystoscopy Discharge Instructions, Ureteral Stent Placement (DC) Activity/Diet/Wound Care/Special Instructions: Activity Limited until follow-up Follow-up with primary care provider on discharge Follow-up with urology outpatient in one week Continue taking antibiotics until finished Continue taking other medications Continue heart healthy consistent carb diet Follow-up with pulmonary outpatient Continue to cough and deep breathe and continue using incentive spirometer at least 10 times every hour while awake Discharge Disposition: HOME WITH HOME HEALTH SERVICES
== END 2021-09-05 14:14 | disposition home health service (06) | DRG 853 ==
LOC: EC 20:56 → 6NMEDSUR 09-01 02:27 → OBSVTOIN 09-03 10:49
PROVIDERS: ADMIT Internal Medicine Geriatric Medicine; ATTEND Internal Medicine Geriatric Medicine
PROC: 0T768DZ Dilation of Right Ureter with Intraluminal Device, Via Natural or Artificial Opening Endoscopic (ICD-10-PCS; principal; 2021-09-02 14:00)
DX: A41.9 Sepsis, unspecified organism (principal); J69.0 Pneumonitis due to inhalation of food and vomit; N13.6 Pyonephrosis; I11.9 Hypertensive heart disease without heart failure; E11.36 Type 2 diabetes mellitus with diabetic cataract; H43.22 Crystalline deposits in vitreous body, left eye; J44.9 Chronic obstructive pulmonary disease, unspecified; N40.0 Benign prostatic hyperplasia without lower urinary tract symptoms; H26.9 Unspecified cataract; E78.5 Hyperlipidemia, unspecified; Z20.822 Contact with and (suspected) exposure to COVID-19; K21.9 Gastro-esophageal reflux disease without esophagitis; M19.90 Unspecified osteoarthritis, unspecified site; G47.30 Sleep apnea, unspecified; Z79.82 Long term (current) use of aspirin; Z79.84 Long term (current) use of oral hypoglycemic drugs; Z79.899 Other long term (current) drug therapy; Z87.11 Personal history of peptic ulcer disease; Z87.891 Personal history of nicotine dependence; Z98.42 Cataract extraction status, left eye; Z98.41 Cataract extraction status, right eye; Z96.1 Presence of intraocular lens; Z88.2 Allergy status to sulfonamides
CPT/HCPCS: 36415; 71045; 74177; 80048; 80053; 81001; 83605; 84145; 85025; 85652; 86140; 87040; 87086; 87449; 87502; 87635; 93306; 94760; 96361; 96365; 96366; 96375; 99285

== ENCOUNTER 2021-10-11 05:43 | Day surgery (SDC) | payer MEDICARE, BC ==
--- NOTE | 2021-10-06 08:52 | P.GSHP ---
History of Present Illness H&P Date: 10/06/21 Chief Complaint: Right hydronephrosis secondary to right ureteral calculus The patient is an 81-year-old white male with an unremarkable urologic history. Specifically, he denies any prior history of UTIs or urolithiasis. He presented in August 2021 with a two-month history of intermittent fever. He denied dysuria, hematuria, and flank pain. However, computed tomography scan showed mild right hydronephrosis due to a 5 x 7 mm right distal ureteral calculus. A right uret eral stent was placed. Urine and blood cultures were negative. His condition has improved and he now comes for cystoscopy, right ureteral stent removal, and ureteroscopic removal of his right distal ureteral calculus. - Constitutional Constitutional: Reports fever - Genitourinary (Male) Genitourinary: Reports as per HPI Past Medical History Past Medical History: Asthma, Diabetes Mellitus, GERD/Reflux, Hyperlipidemia, Hypertension, Osteoarthritis (OA), Sleep Apnea/CPAP/BIPAP Additional Past Medical History / Comment(s): heart murmur, hx of bleeding stomach ulcer and during 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-pt received 64 pints of blood (over 30 yrs ago)-only one working lung, hx of fx rt ankle-painful,ana maría cataracts and hearing aides History of Any Multi-Drug Resistant Organisms: None Reported Past Surgical History: Orthopedic Surgery Additional Past Surgical History / Comment(s): rt ankle,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,rt cataract Past Anesthesia/Blood Transfusion Reactions: No Reported Reaction Additional Past Anesthesia/Blood Transfusion Reaction / Comment(s): hx of 64 pints of blood,no reaction Past Psychological History: No Psychological Hx Reported Smoking Status: Former smoker Past Alcohol Use History: None Reported Additional Past Alcohol Use History / Comment(s): quit smoking 1969,hx of 1 ppd or more Past Drug Use History: None Reported - Past Family History Father History Unknown: Yes Medications and Allergies Home Medications Medication Instructions Recorded Confirmed Type Aspirin EC [Ecotrin] 325 mg PO DAILY 07/31/21 09/01/21 History Calcium/D3/Zinc/Copper/Chastity 1 tab PO DAILY 07/31/21 09/01/21 History [Citracal-D3 Maximum Plus Caplt] Enalapril Maleate 5 mg PO DAILY 07/31/21 09/01/21 History HYDROcodone/APAP 7.5-325MG [[place] 1 tab PO QID PRN 07/31/21 09/01/21 History 7.5-325] Lecithin, Soy [Lecithin] 1,200 mg PO DAILY 07/31/21 09/01/21 History Multivit-Min/FA/Lycopen/Lutein 1 tab PO DAILY 07/31/21 09/01/21 History [Centrum Silver Tablet] Niacin 500 mg PO DAILY 07/31/21 09/01/21 History [place]-3/Dha/Epa/Fish Oil [Fish Oil 1 cap PO DAILY 07/31/21 09/01/21 History 1,000 mg Softgel] Omeprazole Magnesium [PriLOSEC OTC] 20 mg PO DAILY 07/31/21 09/01/21 History Ubidecarenone [Co Q-10] 100 mg PO DAILY 07/31/21 09/01/21 History Vitamin B Complex 1 cap PO BID 07/31/21 09/01/21 History Zinc 50 mg PO DAILY 07/31/21 09/01/21 History amLODIPine [Norvasc] 10 mg PO DAILY 07/31/21 09/01/21 History flaxseed oiL [[place]-3 Flaxseed Oil] 1,000 mg PO DAILY 07/31/21 09/01/21 History glyBURIDE/METFORMIN HCL 1 tab PO DAILY 07/31/21 09/01/21 History [Glucovance 5-500 mg] Simvastatin [Zocor] 20 mg PO DAILY 08/20/21 09/01/21 History glyBURIDE/METFORMIN HCL 0.25 - 0.5 tab PO DAILY PRN 08/20/21 09/01/21 History [Glucovance 5-500 mg] Prednisolone Acetate/Pf 1 drop RIGHT EYE QID 09/01/21 09/01/21 History [Prednisolone Acet 1% Eye Drop] Acetaminophen Tab [Tylenol] 650 mg PO Q4HR PRN tab 09/05/21 Rx Amoxic-Pot Clav 875-125Mg 1 tab PO Q12HR 10 Days #20 tab 09/05/21 Rx [Augmentin 875-125] Ketorolac 0.5% Ophth Soln [Acular 1 drops LEFT EYE BID ml 09/05/21 Rx 0.5%] Allergies Allergy/AdvReac Type Severity Reaction Status Date / Time Sulfa (Sulfonamide Allergy Unknown Rash/Hives, Verified 09/01/21 12:54 Antibiotics) Redness Surgical - Exam - General well developed, well nourished, no distress - Neck no masses, trachea midline - Respiratory normal respiratory effort - Abdomen Abdomen: soft, non tender, no guarding, no rigid, no rebound - Genitourinary normal penis with no external lesions, testicles non-tender - Psychiatric oriented to time, oriented to person, oriented to place, speech is normal, memory intact Results - Imaging CT scan - abdomen: report reviewed, image reviewed Assessment and Plan (1) Calculus of ureter Status: Acute Code(s): N20.1 - CALCULUS OF URETER SNOMED Code(s): 38393363 Plan: Cystoscopy, right ureteral stent removal, right ureteroscopy with Holmium laser lithotripsy and possible stone basketing. The patient has no right renal calculi. The procedure has been reviewed in detail with the patient and his . They have been made aware of potential risks, which include anesthesia, bleeding, infection, ureteral injury, and inability to successfully remove the calculus.
[2021-10-11] MEDS ORDERED: LIDOCAINE 1% (10MG/ML) FOR IV START INTRADERMA PRN (05:57)
[2021-10-11] MEDS ORDERED: ONDANSETRON 4 MG/2 ML VIAL IVP ONE (05:57)
[2021-10-11] MEDS ORDERED: LACTATED RINGERS 1,000 ML IV SCH (05:57)
--- NOTE | 2021-10-11 06:12 | XR ---
EXAMINATION TYPE: XR KUB DATE OF EXAM: 10/11/2021 6:06 AM CLINICAL HISTORY: Kidney stones. TECHNIQUE: Two supine KUB images of the abdomen are obtained. COMPARISON: CT abdomen and pelvis September 01, 2021. FINDINGS: There is new right double-J ureter stent. Prior visualized distal 7 mm right ureter calculu s in the pelvis is not clearly seen on plain film now. Single left-sided inferior pelvic phlebolith r edemonstrated. No nephrolithiasis. Mild vascular calcification in the pelvis redemonstrated. Overall nonobstructive bowel gas pattern. M ultilevel spurring in the spine redemonstrated. IMPRESSION: As above.
[2021-10-11] MEDS ORDERED: DEXAMETHASONE SOD PHOSPHATE 4 MG/ML 1 ML VIAL IVP ONE (07:00)
[2021-10-11] MEDS ORDERED: HYDROmorphone 0.5 MG/0.5 ML SYRINGE IVP PRN (07:00)
[2021-10-11] MEDS ORDERED: METOCLOPRAMIDE 5 MG/ML 2 ML VIAL IVP PRN (07:00)
[2021-10-11 07:09] LABS: Glucose,Whole Blood 122 mg/dL (70-110)
[2021-10-11] MEDS ORDERED: fentaNYL (PF) 50 MCG/ML 2 ML AMP ONE (07:31)
[2021-10-11] MEDS ORDERED: LIDOCAINE 2% INJ 20 MG/ML (2 ML VIAL) ONE (07:31)
[2021-10-11] MEDS ORDERED: SUCCINYLCHOLINE CHLORIDE 200 MG/10 ML VIAL IV ONE (07:31)
[2021-10-11] MEDS ORDERED: PROPOFOL 10 MG/ML 20 ML VIAL IV ONE (07:31)
--- NOTE | 2021-10-11 08:35 | P.OP ---
Date of Procedure: 10/11/21 Preoperative Diagnosis: Right ureteral calculus Postoperative Diagnosis: Same Procedure(s) Performed: Cystoscopy, right ureteral stent removal, right ureteroscopy with Holmium laser lithotripsy and stone basketing Anesthesia: UMA Surgeon: Colt Mccarthy Estimated Blood Loss (ml): 0 IV fluids (ml): 700 Pathology: other (Calculus fragments, sent for chemical analysis) Condition: stable Disposition: PACU Indications for Procedure: The patient is an 81-year-old white male with an unremarkable urologic history. Specifically, he denies any prior history of UTIs or urolithiasis. He presented in August 2021 with a two-month history of intermittent fever. He denied dysuria, hematuria, and flank pain. However, computed tomography scan showed mild right hydronephrosis due to a 5 x 7 mm right distal ureteral calculus. A right ureteral stent was placed. Urine and blood cultures were negative. His condition has improved and he now comes for cystoscopy, right ureteral stent removal, and ureteroscopic removal of his right distal ureteral calculus. Operative Findings: Right distal ureteral calculus, fragmented and removed completely. Description of Procedure: The patient was taken to the operating room and placed in the dorsolithotomy position, with legs supported in Gary stirrups. The external genitalia was prepped and draped sterilely. The 30 lens was used to introduce the 21-[place] Richey cystoscopic sheath through the urethra and into the bladder under direct vision. The prostatic urethra showed evidence of mild lateral lobe enlargement. The bladder was examined in its entirety. No abnormalities were seen. Grasping forceps were used to grasp the distal end of the right ureteral stent, which was removed along with the cystoscope. The Richey semirigid ureteroscope was advanced into the bladder, and the right ureteral orifice was cannulated. The ureteroscope was slowly advanced under direct vision, up to the calculus. The 272 micron Holmium laser probe was passed through the ureteroscope, and lithotripsy was performed. The majority of the calculus was dusted, but there were several residual fragments which were removed using a 1.9-Ghanaian nitinol basket. A final look into the ureter showed no residual calculus fragments, and no evidence of ureteral trauma. The ureteroscope was removed, and the cystoscope was replaced into the bladder. All calculus fragments were removed from the bladder. These were saved and sent for chemical analysis. The bladder was emptied and the cystoscope removed. The patient tolerated the procedure well and was taken to the recovery room in stable condition. SANDEEP CHRISTIE Report: Procedure Acuity: Elective Stone Size and Location: 5 x 7 mm, right distal ureter Ureteral Dilation: No Ureteral Access Sheath Used: No Stone Sent for Analysis: Yes All Stones/Fragments Were Removed with a Basket: Yes Complications: No Preoperative Antibiotics Given: Yes Stent Placed: No Discharge Medications: None
[2021-10-11 08:42] VITALS: TEMP 97
[2021-10-11] MEDS ORDERED: ENALAPRILAT 1.25 MG/ML 1 ML VIAL IVP ONE (08:52)
[2021-10-11 09:07] VITALS: RESP 16
[2021-10-11 09:46] VITALS: BP 159/80; PULSE 77
== END 2021-10-11 10:06 | disposition home or self-care (01) ==
LOC: OR 05:43
PROVIDERS: ATTEND Urology
DX: N20.1 Calculus of ureter (principal); J45.909 Unspecified asthma, uncomplicated; E11.9 Type 2 diabetes mellitus without complications; K21.9 Gastro-esophageal reflux disease without esophagitis; E78.5 Hyperlipidemia, unspecified; I10 Essential (primary) hypertension; G47.33 Obstructive sleep apnea (adult) (pediatric); M19.90 Unspecified osteoarthritis, unspecified site; R01.1 Cardiac murmur, unspecified; Z87.11 Personal history of peptic ulcer disease; Z98.890 Other specified postprocedural states; Z98.41 Cataract extraction status, right eye; Z98.42 Cataract extraction status, left eye; Z87.891 Personal history of nicotine dependence; Z84.89 Family history of other specified conditions; Z88.2 Allergy status to sulfonamides; Z79.84 Long term (current) use of oral hypoglycemic drugs; Z79.899 Other long term (current) drug therapy
CPT/HCPCS: 52353; 82365; 74018; C1769; J0330; J1100; J0690; J2405; J3010; J2704; J2001

== ENCOUNTER → 2021-11-06 | Outpatient (CLI) | payer MEDICARE, BC ==
--- NOTE | 2021-11-06 11:57 | US ---
EXAMINATION TYPE: US kidneys/renal and bladder DATE OF EXAM: 11/06/2021 COMPARISON: NONE CLINICAL HISTORY: N132 HYDRONEPHROSIS WITH RENAL AND URETERAL CALCUL. recent right stone that is gone now, no symptoms EXAM MEASUREMENTS: Right Kidney: 10.0 x 3.5 x 4.6 cm Left Kidney: 9.4 x 4.3 x 5.6 cm Right Kidney: No hydronephrosis or masses seen Left Kidney: No hydronephrosis or masses seen Bladder: right sided irregular wall Bilateral Jets seen: left side only There is no evidence for hydronephrosis at this point in time. No nephrolithiasis is seen. No heide s are identified. IMPRESSION: Thickened wall right portion of the urinary bladder could be related to postprocedural change. Correl ate clinically.
== END | disposition home or self-care (01) ==
LOC: RADUSWWP 09:57
PROVIDERS: ATTEND Urology
DX: N13.2 Hydronephrosis with renal and ureteral calculous obstruction (principal)
CPT/HCPCS: 76770

== ENCOUNTER 2021-12-28 10:43 | Day surgery (SDC) | payer MEDICARE, BC ==
[2021-12-27 09:57] VITALS: BMI 25.0
[2021-12-28] MEDS: CYCLOPENTOLATE 1% OPHTH SOLN 2 ML BTL OP PRN ×3 (12:15→12:27)
[2021-12-28] MEDS: PHENYLEPHRINE 2.5% OPHTH DRP 2ML OP PRN ×3 (12:18→12:30)
[2021-12-28] MEDS ORDERED: LACTATED RINGERS 1,000 ML IV ONE (12:30)
[2021-12-28 12:36] LABS: Glucose,Whole Blood 112 mg/dL (70-110)
[2021-12-28 12:47] VITALS: TEMP 97.8
[2021-12-28] MEDS ORDERED: MIDAZOLAM 2 MG/2 ML VIAL ONE (13:08)
[2021-12-28] MEDS ORDERED: fentaNYL (PF) 50 MCG/ML 2 ML AMP ONE (13:08)
[2021-12-28] MEDS ORDERED: BALANCED SALT IRRIG SOLN COMB2 15 ML IRRIG.SOLN IRRIGATION ONE (13:21)
[2021-12-28] MEDS ORDERED: LIDOCAINE 1% (PF) 10MG/ML VIAL MISCELLANE ONE (13:21)
[2021-12-28] MEDS ORDERED: HYALURONATE SODIUM INTRAOCULAR 1 EACH SYRINGE (12MG/ML) INTRAOCULA ONE (13:23)
[2021-12-28] MEDS ORDERED: EPINEPHrine (PF) 0.3 ML in BALANCED SALT IRRIG SOLN COMB2 500 ML IRRIGATION ONE (13:30)
--- NOTE | 2021-12-28 13:36 | P.OP ---
Date of Procedure: 12/28/21 Preoperative Diagnosis: anterior capsular phimosis Postoperative Diagnosis: same Procedure(s) Performed: removal phimotic tissue Implants: none Anesthesia: MAC Surgeon: Yobani Vega Pathology: none sent Condition: stable Disposition: same day Indications for Procedure: poor vision, intraocular lens distortion Operative Findings: no complications
[2021-12-28 14:00] VITALS: BP 152/85; PULSE 73; RESP 16
--- NOTE | 2021-12-28 23:51 | OP ---
OPERATIVE REPORT PROCEDURE: Removal of anterior capsular remnant of the right eye. PREOPERATIVE DIAGNOSIS: Anterior capsular fibrosis. POSTOPERATIVE DIAGNOSIS: Anterior capsular fibrosis. ANESTHESIA: Topical. ESTIMATED BLOOD LOSS: None. SPECIMEN TAKEN: None. NARRATIVE: After obtaining the appropriate consent, the patient was brought to the operating room. There he was placed under cardiac monitoring and prepped and draped in the usual sterile manner. He was approached from his right temporal side and at the 9 o'clock position, an MVR blade was used to create a paracentesis port. Through this opening, an Utrata forceps was introduced to retrieve the previously lasered anterior capsular remnant. However, a small point of attachment persisted and even on attempted tearing of the remnant from the balance of the capsular bag, there was too much tension noted and risk of damaging the support system for the intraocular lens. Therefore, the microsurgical scissors were introduced into the anterior chamber under viscoelastic and the last remaining strand of attachment was cut and the remaining remnant of the anterior capsule was removed from the anterior chamber using the micro Utrata forceps. Irrigation and aspiration was used to remove the remaining viscoelastic from the anterior chamber. The eye was then brought to normal intraocular pressure through the temporal incision with balanced salt solution and the wound was confirmed watertight. The patient then received 2 drops of 0.5% timolol followed by 2 drops of moxifloxacin. He was then lightly patched and shielded in the usual manner. There were no complications from the procedure. He tolerated the procedure well and was returned to outpatient recovery in good condition. LUCY / CHERRY: [id number] /
== END 2021-12-28 14:32 | disposition home or self-care (01) ==
LOC: OR 10:43
PROVIDERS: ATTEND Ophthalmology
DX: H59.091 Other disorders of the right eye following cataract surgery (principal)
CPT/HCPCS: 66940; J2250; J0171; J3010

== ENCOUNTER 2022-06-01 10:54 | Emergency (ER) | payer MEDICARE, BC ==
[2022-06-01] MEDS ORDERED: MORPHINE SULFATE 2 MG/ML SYRINGE IM STA (11:27)
--- NOTE | 2022-06-01 11:44 | XR ---
EXAMINATION TYPE: XR hand complete RT, XR wrist complete RT DATE OF EXAM: 06/01/2022 CLINICAL HISTORY: pain TECHNIQUE: Frontal, lateral and oblique images of the right hand are obtained. COMPARISON: None. FINDINGS: Severe narrowing radiocarpal joint space with bony remodeling. Ulnar spurring. Intercarpal narrowing noted as well at least moderate in degree. Well-corticated ossific density posterior carpal space may reflect remote triquetral fracture. Vascular calcifications seen. No acute fractures of th e right hand or right wrist at this time. There is evidence of soft tissue swelling about the wrist w hich could be posttraumatic in nature or related to underlying cellulitis. IMPRESSION: There is no acute fracture or dislocation ICD 10 NO FRACTURE, INITIAL EVALUATION
[2022-06-01 11:56] VITALS: RESP 20
--- NOTE | 2022-06-01 12:26 | ED ---
General Adult HPI - General Chief complaint: Extremity Injury, Upper Stated complaint: wrist injury fell 2days ago Time Seen by Provider: 06/01/22 11:06 Source: patient, RN notes reviewed Mode of arrival: ambulatory Limitations: no limitations - History of Present Illness Initial comments: 1-year-old male with past medical history listed below presents to the emergency room for a chief complaint of right wrist pain. Patient states that 2 days ago he was walking outside when he slipped in the grass and fell onto his outstretched right hand. States it has been painful ever since. His family states today he finally agreed to come into the emergency room. He did not hit his head. He did not sustain any other injuries.Patient has no other complaints at this time including shortness of breath, chest pain, abdominal pain, nausea or vomiting, headache, or visual changes. - Related Data Home Medications Medication Instructions Recorded Confirmed Aspirin EC [Ecotrin] 325 mg PO DAILY 07/31/21 12/28/21 Calcium/D3/Zinc/Copper/Chastity 1 tab PO DAILY 07/31/21 12/28/21 [Citracal-D3 Maximum Plus Caplt] Enalapril Maleate 5 mg PO DAILY 07/31/21 12/27/21 HYDROcodone/APAP 7.5-325MG [[place] 1 tab PO QID PRN 07/31/21 12/27/21 7.5-325] Lecithin, Soy [Lecithin] 1,200 mg PO DAILY 07/31/21 12/28/21 Multivit-Min/FA/Lycopen/Lutein 1 tab PO DAILY 07/31/21 12/28/21 [Centrum Silver Tablet] Niacin 500 mg PO DAILY 07/31/21 12/28/21 Omeprazole Magnesium [PriLOSEC OTC] 20 mg PO DAILY 07/31/21 12/27/21 Ubidecarenone [Co Q-10] 100 mg PO DAILY 07/31/21 12/28/21 Zinc 50 mg PO DAILY 07/31/21 12/28/21 amLODIPine [Norvasc] 10 mg PO DAILY 07/31/21 12/27/21 glyBURIDE/METFORMIN HCL 0.5 tab PO DAILY PRN 07/31/21 12/28/21 [Glucovance 5-500 mg] Simvastatin [Zocor] 20 mg PO HS 08/20/21 12/28/21 Allergies Allergy/AdvReac Type Severity Reaction Status Date / Time Sulfa (Sulfonamide Allergy Unknown Rash/Hives, Verified 06/01/22 11:02 Antibiotics) Redness Review of Systems ROS Statement: Those systems with pertinent positive or pertinent negative responses have been documented in the HPI. ROS Other: All systems not noted in ROS Statement are negative. Past Medical History Past Medical History: Asthma, Diabetes Mellitus, GERD/Reflux, Hyperlipidemia, Hypertension, Osteoarthritis (OA), Sleep Apnea/CPAP/BIPAP Additional Past Medical History / Comment(s): hx of bleeding stomach ulcer and during 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-pt received 64 pints of blood (over 30 yrs ago)-only one working lung, hx of fx rt ankle-painful,ana maría cataracts and hearing aides History of Any Multi-Drug Resistant Organisms: MRSA Date of last positivie culture/infection: 20-30 yrs ago MDRO Source:: unknown Past Surgical History: Orthopedic Surgery Additional Past Surgical History / Comment(s): rt ankle reconstructive surgery,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, ana maría cataracts, surgery for stomach ulcer, stomach surgery to "reshape stomach", laser rt eye surgery 12/26/21 Past Anesthesia/Blood Transfusion Reactions: No Reported Reaction Additional Past Anesthesia/Blood Transfusion Reaction / Comment(s): hx of 64 pints of blood,no reaction Past Psychological History: Depression Smoking Status: Former smoker Past Alcohol Use History: None Reported Past Drug Use History: None Reported - Past Family History Father History Unknown: Yes Mother Additional Family Medical History / Comment(s): alzheimer General Exam Limitations: no limitations General appearance: alert Head exam: Present: atraumatic Eye exam: Present: normal appearance, PERRL, EOMI. Absent: scleral icterus, conjunctival injection ENT exam: Present: normal exam, mucous membranes moist Neck exam: Present: normal inspection, full ROM. Absent: tenderness Respiratory exam: Present: normal lung sounds bilaterally. Absent: respiratory distress, wheezes Cardiovascular Exam: Present: regular rate, normal rhythm, normal heart sounds Extremities exam: Present: tenderness (Tenderness to the dorsal and volar aspects of the right wrist.), normal capillary refill (Capillary refill less than 2 seconds, radial pulse 2+ right upper extremity.), joint swelling (Moderate edema of the right wrist and hand). Absent: full ROM (Patient has limited range of motion of the right wrist and fingers secondary to pain but is able to move all fingers.), other Neurological exam: Present: alert Course Vital Signs 06/01/22 06/01/22 10:59 11:53 Temperature 98 F Pulse Rate 104 H 98 Respiratory 18 20 Rate Blood Pressure 180/87 170/94 O2 Sat by Pulse 98 94 L Oximetry Procedures - Orthopedic Splinting/Casting Injury #1 Side: right Upper Extremity Injury Location: short arm Upper Extremity Immobilizer: volar splint Medical Decision Making - Medical Decision Making Vitals are stable. HPI and physical exam as documented. X-ray negative for acute fracture. Splint applied given concern for occult fracture versus soft tissue injury. Patient will be discharged home in stable condition to follow up with orthopedics. He does have [place] at home for pain. [place] therapy discussed. He will return to the emergency room for any worsening symptoms. Was pt. sent in by a medical professional or institution (, PA, PROGRAM DIRECTOR, urgent care, hospital, or prison...) When possible be specific @ -No Did you speak to anyone other than the patient for history (EMS, parent, family, police, friend...)? What history was obtained from this source @ -, son Did you review nursing and triage notes (agree or disagree)? Why? @ -I reviewed and agree with nursing and triage notes Were old charts reviewed (outside hosp., previous admission, EMS record, old EKG, old radiological studies, urgent care reports/EKG's, prison records)? Report findings @ -No old charts were reviewed Differential Diagnosis (chest pain, altered mental status, abdominal pain women, abdominal pain men, vaginal bleeding, weakness, fever, dyspnea, syncope, headache, dizziness, GI bleed, back pain, seizure, CVA, palpatations, mental health)? @ -fracture versus soft tissue injury EKG interpreted by me (3pts min.). @ -no applicable X-rays interpreted by me (1pt min.). @ -wrist and hand CT interpreted by me (1pt min.). @ -None done U/S interpreted by me (1pt. min.). @ -None done What testing was considered but not performed or refused? (CT, X-rays, U/S, labs)? Why? @ -None What meds were considered but not given or refused? Why? @ -None Did you discuss the management of the patient with other professionals (professionals i.e. , PA, PROGRAM DIRECTOR, lab, RT, psych nurse, social media strategist, student education specialist, teacher, chief supply chain officer, case briefer)? Give summary @ -Dr Lorenzana Was smoking cessation discussed for >3mins.? @ -No Was critical care preformed (if so, how long)? @ -No Were there social determinants of health that impacted care today? How? (Homelessness, low income, unemployed, alcoholism, drug addiction, transportation, low edu. Level, literacy, decrease access to med. care, longterm, rehab)? @ -No Was there de-escalation of care discussed even if they declined (Discuss DNR or withdrawal of care, Hospice)? DNR status @ -No What co-morbidities impacted this encounter? (DM, HTN, Smoking, COPD, CAD, Cancer, CVA, ARF, Chemo, Hep., AIDS, mental health diagnosis, sleep apnea, morbid obesity)? @ -None Was patient admitted / discharged? Hospital course, mention meds given and route, prescriptions, significant lab abnormalities, going to OR and other pertinent info. @ -XRay, morphine, splinted, discharged Undiagnosed new problem with uncertain prognosis? @ -No Drug Therapy requiring intensive monitoring for toxicity (Heparin, Nitro, Insulin, Cardizem)? @ -No Were any procedures done? @ -splint application Diagnosis/symptom? @ -wrist injury Acute, or Chronic, or Acute on Chronic? @ -acute Uncomplicated (without systemic symptoms) or Complicated (systemic symptoms)? @ -uncomplicated Side effects of treatment? @ -No Exacerbation, Progression, or Severe Exacerbation? @ -No Poses a threat to life or bodily function? How? (Chest pain, [place], [place], pneumonia, PE, COPD, DKA, ARF, appy, cholecystitis, CVA, Diverticulitis, Homicidal, Suicidal, threat to staff... and all critical care pts) @ -No Disposition Clinical Impression: Wrist pain, right Disposition: HOME SELF-CARE Condition: Good Instructions (If sedation given, give patient instructions): Wrist Injury (ED) Additional Instructions: Please take your [place] for pain. Rest ice and elevate the right wrist. Keep splint dry. Follow-up with orthopedics. Is patient prescribed a controlled substance at d/c from ED?: No Referrals: Marcus Chan MD [Primary Care Provider] - 1-2 days Taina Gaston DO [Doctor of Osteopathic Medicine] - 1-2 days Time of Disposition: 12:22
[2022-06-01 12:47] VITALS: BP 165/78; PULSE 94; TEMP 98.9
== END 2022-06-01 12:40 | disposition home or self-care (01) ==
LOC: EC 10:54
DX: M25.531 Pain in right wrist (principal); I10 Essential (primary) hypertension; E78.5 Hyperlipidemia, unspecified; G47.30 Sleep apnea, unspecified; J45.909 Unspecified asthma, uncomplicated; K21.9 Gastro-esophageal reflux disease without esophagitis; M19.90 Unspecified osteoarthritis, unspecified site; Z79.82 Long term (current) use of aspirin; Z79.899 Other long term (current) drug therapy; Z87.891 Personal history of nicotine dependence; Z88.2 Allergy status to sulfonamides
CPT/HCPCS: 73110; 73130; 29125; 99283; 96372; J2270